=== PATIENT | female | born 1945 | race Caucasian/White ===

== ENCOUNTER → 2019-08-10 09:20 | Outpatient (BNVA) | payer MEDICARE, OTHER, SELFPAY | PROVIDERS: Family Provider Internal Medicine; PCP Internal Medicine; Referring Provider Licensed Practical Nurse; Visit Provider Specialist | DX: G56.03 Carpal tunnel syndrome, bilateral upper limbs (principal) | CPT/HCPCS: 95910 ==

== ENCOUNTER 2019-08-20 14:04 | Outpatient (CLI) | payer MEDICARE, OTHER, SELFPAY ==
[2019-08-14 13:00] LABS: Basophils % 0.4 %; Eosinophils # 0.1 10^3/uL (0.0-0.8); Eosinophils % 2.2 %; Hematocrit 37.4 % (37.0-47.0); Hemoglobin 11.9 g/dL (11.5-15.3); Lymphocytes # 1.1 10^3/uL (0.8-4.8); Lymphocytes % 22.9 %; Mean Corpuscular HGB Conc 31.8 g/dL (30.0-36.0); Mean Corpuscular Hemoglobin 29.5 pg (28.0-34.0); Mean Corpuscular Volume 92.8 fL (81-99); Mean Platelet Volume 10.2 fL (7.4-10.4); Monocytes # 0.5 10^3/uL (0.2-0.9); Monocytes % 10.9 %; Neutrophils # 2.9 10^3/uL (1.8-7.7); Neutrophils % 63.2 %; Nucleated Red Blood Cells % 0 %; Platelet Count 283 10^3/cmm (130-400); Red Blood Count 4.03 10^6/uL (4.1-5.3); Red Cell Distribution Width 13.1 % (12.1-15.1); White Blood Count 4.6 10^3/uL (4.0-10.0)
[2019-08-14 13:15] LABS: Alanine Aminotransferase 11 U/L (0-33); Albumin Level 4.1 g/dL (3.5-5.2); Alkaline Phosphatase 90 IU/L (35-105); Anion Gap 17.8 (5-19); Aspartate Amino Transferase 18 U/L (0-32); Blood Urea Nitrogen 16 mg/dL (8-23); Calcium 9.2 mg/dL (8.5-10.5); Carbon Dioxide 25 mmol/L (22-29); Chloride 97 mmol/L (98-107); Globulin 2.9 g/dL (1.3-4.6); Glucose 98 mg/dL (65-115); Iron 60 ug/dL (37-145); Osmolality Calculated 278 mOsm/kg (285-295); Percent Saturation 16.6 % (20-50); Potassium 3.8 mmol/L (3.5-5.1); Sodium 136 mmol/L (136-145); Total Bilirubin 0.4 mg/dL (0.15-1.2); Total Iron Binding Capacity 360 mcg/dl; Unsaturated Iron Binding 300 ug/dL (112-347)
[2019-08-20] MEDS: LORazepam 2 mg/mL INJ 1 mL 0.5 MG IV (14:44)
[2019-08-20 15:45] LABS: Thyroid Stimulating Hormone 1.41 uIU/mL (0.27-4.20); Vitamin B12 178 pg/mL (232-1245)
--- NOTE | 2019-08-20 18:36 | ONC FU_ITS ---
Dr. Gavin Patient Follow-Up Note Patient: Leticia North Unit #: [id number]: 1945 Dicatated By: Naresh Gavin M.D.Date of Visit:Aug 20, 2019 Onc Med Follow-up/Prog Note Chief Complaint: Anemia. History of Present Illness: This is a 74 year-old woman with iron deficiency anemia. She has had recurrent episodes of iron deficiency anemia, presumed to be due to inadequate oral iron absorption, as multiple GI studies had failed to document any GI blood loss. Her anemia has been managed with parenteral iron replacement, as in the past she had not responded to oral iron supplements. She had typically required parenteral iron about every 6 months. On one occasion her anemia was severe enough that she did require transfusion. I had seen her initially on 06/11/2018. Her laboratory studies one week earlier had shown mild anemia with hemoglobin 11.3 g and hematocrit 35.5%. The red cell indices were borderline low. The white blood cell count was 4900 and the platelet count was 300,000. The serum iron was low at 41 mcg/dL with transferrin saturation 9.6% and the ferritin was low at 6.0 ng/mL, consistent with iron deficiency. At that time she reported that with her most recent prior Injectafer and fusion she had developed significant anxiety. After discussion with her, she opted to proceed with 2 infusions of Injectafer, but with premedication which included dexamethasone, Benadryl, and lorazepam. She tolerated the infusions well. Her medical illnesses, in addition to anemia and anxiety, include hypertension, degenerative arthritis, and glaucoma. She also has a history of thyroid nodule. She is a nonsmoker. INTERIM HISTORY: Her repeat laboratory studies in September 2018 showed normal hemoglobin at 13.0 g. However, her transferrin saturation was low at 8.9% and the ferritin was also low at 17.0 ng/mL, consistent with iron deficiency, and I did opt to give her further parenteral iron replacement with 2 additional infusions of Injectafer. At her follow-up visit in December 2018 her hemoglobin had increased to 13.1 g with transferrin saturation 21%. She was feeling significantly better. She is seen for a follow-up visit. She has been feeling weak and generally bad for the past 2 months. Her activity tolerance has declined, but she is still doing light work. ECOG score is 1. She has good appetite. She has no fever or night sweats. She has having some shortness of breath with exertion. She does not have resting dyspnea, cough, or chest pain. She has no GI or complaints. She has some pain in her fingers. She is having terrible numbness/tingling in her fingers and arms. She has had a nerve conduction study, and those results are pending. Medications: LORazepam 1 Tablet (of 0.5 mg) Oral b.i.d. PRN, Losartan Potassium-HCTZ 0.5 Tablet (of 100-25 mg) Oral daily Allergies: iron Review of Systems: Constitutional - Her energy level is lower than usual and she is feeling weak. She is able to do all her normal housework. Her appetite is good and weight is stable. No fever, chills, hot flashes, or night sweats. ECOG score is 1, ENMT - No sinus congestion/drainage. No mouth sores. No sore throat or difficulty swallowing, Hematologic/Lymphatic - No abnormal bruising or bleeding, Respiratory - She gets shortness of breath with exertion. No cough. No pleuritic pain or hemoptysis, Cardiovascular - No angina pain. No palpitations, Gastrointestinal - No nausea or vomiting. No heartburn or acid reflux. No diarrhea or constipation. No blood in the stool or black stools, Genitourinary (F) - No dysuria or hematuria. No urinary frequency. No urgency or incontinence, Musculoskeletal - No joint or bone pain, Integumentary - No skin complications, Neurologic - No headache or dizziness. She has significant numbness and tingling in her hands and arms, Psychiatric - No anxiety or depression. No insomnia. Vital Signs: Performed on Aug 20, 2019 13:30 Height - 67.00 in Weight - 211.5 lbs (HIGH) BSA - 2.07 sq.m BMI - 33.13 (HIGH) Temperature - 98.4 F Pulse - 70 /min Respiration - 20 /min BP - 144/84 mm(hg) (HIGH) O2 Sat - 99 % Pain - 0 Physical Examination: Constitutional - She looks good generally, Eyes - Sclerae nonicteric. Conjunctivae clear, ENMT - No lesions noted in the oral cavity, Hematologic/Lymphatic - No cervical, clavicular, or axillary adenopathy, Respiratory - Lungs are clear with good air movement bilaterally, Cardiovascular - Heart rhythm is regular. There is no murmur, gallop, or rub noted, Abdomen - Soft. Liver and spleen are not enlarged. There is no abdominal mass or ascites noted and there is no inguinal adenopathy, Extremities - No edema, Neurologic - No focal neurologic deficits noted. Lab/Imaging: Her laboratory studies from 08/14/2019 included CBC showing hemoglobin 11.9 g, white blood cell count 4600, and platelet count 283,000. The red cell indices were normal. Comprehensive metabolic profile showed elevated BUN and creatinine at 16 and 1.4 mg/dL. The bilirubin and liver enzymes were normal. The serum iron studies showed low transferrin saturation at 16.6%. Impression: 1. Patient with recurrent episodes of iron deficiency anemia, presumed to be due to inadequate oral iron absorption. She has been managed with parenteral iron replacement, as her anemia had been refractory to oral iron supplements. 2. She had developed significant anxiety following a recent infusion of Injectafer, possibly due to infusion reaction. Her other medical illnesses include: 3. Hypertension. 4. Degenerative arthritis. 5. Glaucoma. 6. She has a history of thyroid nodule. 7. She has chronic anxiety. Her transferrin saturation and ferritin in May 2018 were again consistent with iron deficiency. She was just mildly anemic, but she was significantly fatigued. She was given parenteral iron replacement with 2 infusions of Injectafer. She tolerated these well, and she had a good objective response. As of September 2018 her transferrin saturation and ferritin levels were again low, consistent with iron deficiency. She was not anemic, but she did report significant fatigue, and she was given further parenteral iron replacement with 2 additional infusions of Injectafer. She had a very good clinical response. She returns now with 2-month history of increased weakness/fatigue. She is having significant numbness/tingling in her arms and hands. She is mildly anemic with transferrin saturation low at 16%, so that she does appear to have some component of iron deficiency. I am also concerned now that she may have coexisting B12 deficiency, as her B12 level in June was in the low normal range at 260 pg/mL. Plan: As she does have evidence of iron deficiency which in the past has not corrected with oral iron replacement, she will be given further parenteral iron replacement with 1 infusion of Injectafer. At the same time I will repeat a B12 level along with methylmalonic acid and homocystine levels and I also will check her TSH. She will have further evaluation as indicated. Signed By: Naresh Gavin M.D. <<Signature on File>>
[2019-08-24 15:35] LABS: Methylmalonic Acid 892 nmol/L (87-318)
== END 2019-08-20 14:05 | disposition home or self-care (01) ==
PROVIDERS: Family Provider Internal Medicine; PCP Internal Medicine; Visit Provider Internal Medicine Medical Oncology
DX: D50.9 Iron deficiency anemia, unspecified (principal); F41.9 Anxiety disorder, unspecified; I10 Essential (primary) hypertension; M19.90 Unspecified osteoarthritis, unspecified site; H40.9 Unspecified glaucoma; R53.83 Other fatigue; R20.0 Anesthesia of skin
CPT/HCPCS: 80053; 82607; 83090; 83540; 83550; 83921; 84443; 85025; 96365; 96367; 96375; 99214; J1100; J1200; J1439; J2060

== ENCOUNTER 2019-09-23 08:35 | Outpatient (CLI) | payer MEDICARE, OTHER, SELFPAY ==
[2019-09-23 17:35] LABS: Basophils % 0.3 %; Eosinophils # 0.1 10^3/uL (0.0-0.8); Eosinophils % 2.6 %; Hematocrit 36.6 % (37.0-47.0); Lymphocytes # 0.7 10^3/uL (0.8-4.8); Lymphocytes % 22.9 %; Mean Corpuscular HGB Conc 30.1 g/dL (30.0-36.0); Mean Corpuscular Hemoglobin 29.6 pg (28.0-34.0); Mean Corpuscular Volume 98.7 fL (81-99); Mean Platelet Volume 10.8 fL (7.4-10.4); Monocytes # 0.3 10^3/uL (0.2-0.9); Neutrophils % 63.9 %; Nucleated Red Blood Cells % 0 %; Platelet Count 263 10^3/cmm (130-400); Red Blood Count 3.71 10^6/uL (4.1-5.3); White Blood Count 3.1 10^3/uL (4.0-10.0)
[2019-09-23 20:12] LABS: Ferritin 117 ng/mL (15-150); Iron 66 ug/dL (37-145); Percent Saturation 22.9 % (20-50); Total Iron Binding Capacity 288 mcg/dl; Unsaturated Iron Binding 222 ug/dL (112-347)
== END 2019-09-23 08:36 | disposition home or self-care (01) ==
LOC: ONCMED 16:46
PROVIDERS: Family Provider Internal Medicine; PCP Internal Medicine; Visit Provider Internal Medicine Medical Oncology
DX: D50.8 Other iron deficiency anemias (principal)
CPT/HCPCS: 82728; 83540; 83550; 85025

== ENCOUNTER 2019-10-08 10:44 | Day surgery (SDC) | payer MEDICARE, OTHER, SELFPAY ==
[2019-10-07 12:32] VITALS: BMI 34.1
[2019-10-08 11:22] VITALS: BP 160/89; PULSE 65; RESP 15; TEMP 36.2; O2SAT 99
[2019-10-08] MEDS: sodium chloride 0.9% 1,000 ML 30 ML IV (11:36)
--- NOTE | 2019-10-08 12:03 | P.ANESASSM_ITS ---
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 Proposed Procedure: Operation Date: 10/08/19 13:05 Proposed Procedures p Open release of the median nerve at the left wrist 64546 G56.03(Left) - Enmanuel Jauregui MD Familial anesthetic complications: None Was Beta Americo taken within 24 hours: N/A Last intake: Intake Last Liquid Date 10/08/19 Last Liquid Time 08:30 Last Solid Date 10/07/19 Last Solid Time 22:00 Social: Social History: No alcohol and No tobacco Exam: Pre-Anes Outpt Exam: alert, oriented x 3, clear to auscultation b ilaterally and regular rate & rhythm Airway: Cervical ROM: WNL MP: 2 Dentition: False Pulmonary: Pulmonary: None reported CV/HEM: CV/HEM: HTN : : None reported Hepatic: Hepatic: None reported GI: GI: None reported Metabolic: Metabolic: None reported Musc/skel: Musc/skel: None reported Neuropsych: Neuropsych: None reported Anesthetic Plan: ASA status: 2 Anesthesia: General Risk of > 500 ml blood loss (7ml/kg in children): No Meds/Allergies Current Medications: Current Medications Generic Name Dose Route Start Last Admin Trade Name Freq PRN Reason Stop Dose Admin Sodium Chloride 1,000 mls @ 30 ml s/hr 10/08/19 11:15 10/08/19 11:36 Sodium Chloride 0.9% IV 10/09/19 11:14 30 mls/hr .Q24H SILVESTRE Administration PFSH Anesthesia PFSH: Medical History Bilateral carpal tunnel syndrome Surgical History History of elbow surgery horse fell on pt, caused shattering of elbow socket and it was wired. 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
--- NOTE | 2019-10-08 15:58 | W.PM.OPSUD ---
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
--- NOTE | 2019-10-08 16:18 | PM.OP2 ---
Brief Operative Note: Date of procedure: 10/08/19 Pre-op diagnosis: Median nerve entrapment at left wrist. Post-op diagnosis: same Procedure Done: Open Release of median nerve at left wrist. Surgeon: Enmanuel Jauregui Estimated blood loss (mL): 1 Complications: None. Post-op Plan: Home per Ambulatory Surgery protocol. 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
[2019-10-08] MEDS: neomycin-poly-bacitracin oint 28 gm 1 APPLIC TOPICAL (16:40)
[2019-10-08 17:15] VITALS: BP 102/70; PULSE 90; RESP 16; TEMP 36.2; O2SAT 99
[2019-10-08 17:37] VITALS: BP 116/76; PULSE 62; RESP 16; TEMP 36.2; O2SAT 100
--- NOTE | 2019-10-08 18:00 | PM.OP ---
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 Pathology: none sent Surgeon: Enmanuel Jauregui Anesthesia: MAC Estimated blood loss (mL): 1 IV fluids (mL): 300 Complications: None Condition: stable Disposition: same day Brief History: The patient is a 74-year-old female with symptomatic, electrodiagnostically confirmed moderately severe bilateral carpal tunnel syndrome. Symptoms were more prominent on the left than the right. Conservative management failed to provide adequate lasting symptom relief. After review of the diagnostic and treatment options with the risks/potential benefits/rationale for each, the patient requested to proceed with open release of the median nerve at the left wrist. Procedure: After routine preoperative evaluation and informed consent were obtained, the patient was taken to the Operating Room and positioned supine on the operating table. Anesthesia personnel monitored the patient, and maintained intravenous sedation. The left upper extremity was extended on an arm board. The proposed skin incision was marked with a sterile skin marker, beginning near the wrist crease and extending distally along a palmar crease to the base of the thumb. The left upper extremity was scrubbed with Betadine and prepped with DuraPrep from the fingertips to the axilla. A sterile stockinette was placed over the left upper extremity. The patient was draped with sterile towels and drapes. An opening was fashioned in the sterile stockinette over the palmar aspect of the left hand. Ioban surgical barrier was applied. The proposed incision site was infiltrated with 1% Xylocaine with Epinephrine. A skin incision was made with a sharp knife and carried down into the subcutaneous tissues. The thickened transverse carpal ligament was identified and divided over the course of the median nerve in the palm. The nerve was directly visualized as the ligament was divided. Decompression was extended distally until the palmar fat pad was encountered. Proximally, the decompression was extended above the wrist crease utilizing fine Metzenbaum scissors. Decompression was verified to be adequate for a distance of greater than 2 centimeters proximal to the wrist crease. Limited epineurolysis was performed to address scattered adhesions. At the completion of the decompression, there was no evidence of residual impingement or tethering of the median nerve at the surgical site. The wound was then copiously irrigated with antibiotic irrigation. Hemostasis was ensured with the bipolar electrocautery. Wound closure was performed as a single layer utilizing 4-0 Nylon in a simple interrupted fashion. Antibiotic ointment was placed along the incision line. A bulky hand dressing was fashioned utilizing Kerlix fluffs, a Kerlix wrap, and an ISAIAS/elastic bandage. The patient was transferred onto the transport cart and returned to the Ambulatory Surgery Area for discharge home, as per the Ambulatory Surgery protocol. The patient tolerated the procedure well. All sponge, needle and instrument counts were correct at the completion of the procedure.
== END 2019-10-08 17:59 | disposition home or self-care (01) ==
PROVIDERS: PCP Internal Medicine; Visit Provider Specialist
PROC: (CPT 64721; principal; 2019-10-08 12:55)
DX: G56.02 Carpal tunnel syndrome, left upper limb (principal); I10 Essential (primary) hypertension
CPT/HCPCS: 64721; 12345; J0690; J2001; J2704; J3010; J3490; J7030

== ENCOUNTER 2019-10-26 12:25 | Outpatient (CLI) | payer MEDICARE, OTHER, SELFPAY ==
[2019-10-26 13:09] LABS: Basophils % 0.5 %; Eosinophils # 0.2 10^3/uL (0.0-0.8); Eosinophils % 4.3 %; Hematocrit 33.5 % (37.0-47.0); Hemoglobin 10.5 g/dL (11.5-15.3); Lymphocytes # 1.2 10^3/uL (0.8-4.8); Lymphocytes % 29.4 %; Mean Corpuscular HGB Conc 31.3 g/dL (30.0-36.0); Mean Corpuscular Hemoglobin 30.3 pg (28.0-34.0); Mean Corpuscular Volume 96.5 fL (81-99); Mean Platelet Volume 9.9 fL (7.4-10.4); Monocytes # 0.4 10^3/uL (0.2-0.9); Monocytes % 10.9 %; Neutrophils # 2.2 10^3/uL (1.8-7.7); Neutrophils % 54.6 %; Nucleated Red Blood Cells % 0 %; Platelet Count 240 10^3/cmm (130-400); Red Blood Count 3.47 10^6/uL (4.1-5.3); Red Cell Distribution Width 13.2 % (12.1-15.1); White Blood Count 3.9 10^3/uL (4.0-10.0)
[2019-10-26 13:24] LABS: LAB Peripheral Smear Y
[2019-10-26 13:47] LABS: Homocysteine 13.48
[2019-10-26 13:58] LABS: Alanine Aminotransferase 10 U/L (0-33); Albumin Level 3.8 g/dL (3.5-5.2); Alkaline Phosphatase 82 IU/L (35-105); Anion Gap 15.8 (5-19); Aspartate Amino Transferase 17 U/L (0-32); Blood Urea Nitrogen 12 mg/dL (8-23); Calcium 9.3 mg/dL (8.5-10.5); Carbon Dioxide 25 mmol/L (22-29); Chloride 102 mmol/L (98-107); Ferritin 27 ng/mL (15-150); Globulin 3.1 g/dL (1.3-4.6); Glucose 93 mg/dL (65-115); Iron 36 ug/dL (37-145); Lactate Dehydrogenase 181 U/L (135-214); Osmolality Calculated 284 mOsm/kg (285-295); Percent Saturation 11.4 % (20-50); Potassium 3.8 mmol/L (3.5-5.1); Sodium 139 mmol/L (136-145); Total Bilirubin 0.2 mg/dL (0.15-1.2); Total Iron Binding Capacity 314 mcg/dl; Total Protein 6.9 g/dL (6.6-8.7); Unsaturated Iron Binding 278 ug/dL (112-347); Vitamin B12 648 pg/mL (232-1245)
[2019-10-26 14:06] LABS: Erythrocyte Sedimentation Rate 24 mm/hr (0-15)
[2019-10-30 15:21] LABS: Methylmalonic Acid 212 nmol/L (87-318)
== END 2019-10-26 12:26 | disposition home or self-care (01) ==
LOC: ONCMED 12:28
PROVIDERS: PCP Internal Medicine; Visit Provider Internal Medicine Medical Oncology
DX: D50.9 Iron deficiency anemia, unspecified (principal); D51.9 Vitamin B12 deficiency anemia, unspecified; I10 Essential (primary) hypertension
CPT/HCPCS: 80053; 82607; 82728; 83010; 83090; 83540; 83550; 83615; 83921; 85025; 85045; 85651

== ENCOUNTER 2019-10-28 12:40 | Outpatient (CLI) | payer MEDICARE, OTHER, SELFPAY ==
--- NOTE | 2019-10-28 19:24 | ONC FU_ITS ---
Dr. Gavin Patient Follow-Up Note Patient: Leticia North Unit #: [id number]: 1945 Dicatated By: Naresh Gavin M.D.Date of Visit:Oct 28, 2019 Onc Med Follow-up/Prog Note Chief Complaint: Anemia. History of Present Illness: This is a 74 year-old woman with iron deficiency anemia. She has had recurrent episodes of iron deficiency anemia, presumed to be due to inadequate oral iron absorption, as multiple GI studies had failed to document any GI blood loss. Her anemia has been managed with parenteral iron replacement, as in the past she had not responded to oral iron supplements. She had typically required parenteral iron about every 6 months. On one occasion her anemia was severe enough that she did require transfusion. I had seen her initially on 06/11/2018. Her laboratory studies one week earlier had shown mild anemia with hemoglobin 11.3 g and hematocrit 35.5%. The red cell indices were borderline low. The white blood cell count was 4900 and the platelet count was 300,000. The serum iron was low at 41 mcg/dL with transferrin saturation 9.6% and the ferritin was low at 6.0 ng/mL, consistent with iron deficiency. At that time she reported that with her most recent prior Injectafer and fusion she had developed significant anxiety. After discussion with her, she opted to proceed with 2 infusions of Injectafer, but with premedication which included dexamethasone, Benadryl, and lorazepam. She tolerated the infusions well. Her medical illnesses, in addition to anemia and anxiety, include hypertension, degenerative arthritis, and glaucoma. She also has a history of thyroid nodule. She is a nonsmoker. INTERIM HISTORY: Her repeat laboratory studies in September 2018 showed normal hemoglobin at 13.0 g. However, her transferrin saturation was low at 8.9% and the ferritin was also low at 17.0 ng/mL, consistent with iron deficiency, and I did opt to give her further parenteral iron replacement with 2 additional infusions of Injectafer. At her follow-up visit in December 2018 her hemoglobin had increased to 13.1 g with transferrin saturation 21%. She was feeling significantly better. However, at her follow-up visit on 08/20/2019 she was significantly more fatigued. Her hemoglobin was back down to 11.9 g with transferrin saturation low at 16%. In addition, her methylmalonic acid level was elevated at 892 mmol/L. She was given a single infusion of Injectafer. She also started B12 replacement. She is seen for a follow-up visit. She says she felt better after starting the B12 injections. She said her energy had been horrible, but lately it has been better. She is able to do light work. She had carpal tunnel surgery on her left wrist 3 weeks ago, and she seems to be recovering pretty well following that procedure. She has good appetite. She has no fever or night sweats. She has no shortness of breath, cough, or chest pain. She has no GI complaints. She says her bladder function lately has been a little better. She has arthritis, but she does not have much pain with it. Her carpal tunnel symptoms did improve with the surgery. She is being scheduled to have the same surgery on on the right side. Medications: LORazepam 1 Tablet (of 0.5 mg) Oral b.i.d. PRN, Losartan Potassium-HCTZ 0.5 Tablet (of 100-25 mg) Oral daily Allergies: iron Review of Systems: Constitutional - She generally feels okay. Her energy level was horrible, but it is better now. She has mostly normal activity. Her appetite is good and her weight is up about 8 pounds from last visit. No fever, night sweats, or hot flashes. ECOG score is 1, ENMT - No sinus congestion/drainage. No mouth sores. No sore throat or difficulty swallowing, Hematologic/Lymphatic - No abnormal bruising or bleeding, Respiratory - No shortness of breath. No cough. No pleuritic pain or hemoptysis, Cardiovascular - No angina pain. No palpitations, Gastrointestinal - No nausea or vomiting. No heartburn or acid reflux. No diarrhea or constipation. No blood in the stool or black stools, Genitourinary (F) - No dysuria or hematuria. No urinary frequency. No urgency or incontinence. She feels her bladder function is overall improved, Musculoskeletal - She has chronic arthritis pain, Integumentary - She has a healing incision to her left hand from a recent sugery. No signs of infection, Neurologic - No headache or dizziness. She has significant numbness and tingling in her hands and arms, Psychiatric - No anxiety or depression. No insomnia. Vital Signs: Performed on Oct 28, 2019 13:04 Height - 67.00 in Weight - 219.8 lbs (HIGH) BSA - 2.10 sq.m BMI - 34.43 (HIGH) Temperature - 97.9 F (LOW) Pulse - 62 /min Respiration - 24 /min BP - 140/97 mm(hg) O2 Sat - 99 % Pain - 0 Physical Examination: Constitutional - She looks good generally, Eyes - Sclerae nonicteric. Conjunctivae clear, ENMT - No lesions noted in the oral cavity, Hematologic/Lymphatic - No cervical, clavicular, or axillary adenopathy, Respiratory - Lungs are clear with good air movement bilaterally, Cardiovascular - Heart rhythm is regular. There is no murmur, gallop, or rub noted, Abdomen - Soft. Liver and spleen are not enlarged. There is no abdominal mass or ascites noted and there is no inguinal adenopathy, Extremities - No edema, Neurologic - No focal neurologic deficits noted. Lab/Imaging: CBC shows hemoglobin 10.5 g, white blood cell count 3900, and platelet count 240,000. Comprehensive metabolic profile is unremarkable except for borderline renal function with BUN 12 and creatinine 1.3 mg/dL. The serum iron studies show transferrin saturation low at 11.4%. Ferritin is also relatively low at 27 ng/mL. Impression: 1. Patient with recurrent episodes of iron deficiency anemia, presumed to be due to inadequate oral iron absorption. She has been managed with parenteral iron replacement, as her anemia had been refractory to oral iron supplements. 2. She had developed significant anxiety following a recent infusion of Injectafer, possibly due to infusion reaction. Her other medical illnesses include: 3. Hypertension. 4. Degenerative arthritis. 5. Glaucoma. 6. She has a history of thyroid nodule. 7. She has chronic anxiety. Her transferrin saturation and ferritin in May 2018 were again consistent with iron deficiency. She was just mildly anemic, but she was significantly fatigued. She was given parenteral iron replacement with 2 infusions of Injectafer. She tolerated these well, and she had a good objective response. As of September 2018 her transferrin saturation and ferritin levels were again low, consistent with iron deficiency. She was not anemic, but she did report significant fatigue, and she was given further parenteral iron replacement with 2 additional infusions of Injectafer. She had a very good clinical response. At her follow-up visit on 08/20/2019 she was mildly anemic again with her transferrin saturation low at 16%, consistent with iron deficiency. She also was found to have an elevated methylmalonic acid level, consistent with B12 deficiency. She was given a single infusion of Injectafer, and she also started B12 replacement. She did show symptomatic improvement. However, she is now mildly anemic again with transferrin saturation and ferritin level consistent with iron deficiency. Plan: She will be given further parenteral iron replacement with 2 infusions of Injectafer. She will continue her B12 replacement. I also now will have her recheck stool FIT. Her lab studies will be rechecked 1 month after the second Injectafer infusion. Signed By: Naresh Gavin M.D. <<Signature on File>>
== END 2019-10-28 12:41 | disposition home or self-care (01) ==
LOC: ONCMED 12:44
PROVIDERS: PCP Internal Medicine; Visit Provider Internal Medicine Medical Oncology
DX: D50.9 Iron deficiency anemia, unspecified (principal); I10 Essential (primary) hypertension; M19.90 Unspecified osteoarthritis, unspecified site; H40.9 Unspecified glaucoma; E04.1 Nontoxic single thyroid nodule; F41.9 Anxiety disorder, unspecified
CPT/HCPCS: 99214

== ENCOUNTER 2019-10-29 14:30 | Outpatient (CLI) | payer MEDICARE, OTHER, SELFPAY ==
[2019-10-29] MEDS: LORazepam 2 mg/mL INJ 1 mL 0.5 MG IVP (14:57)
[2019-10-29] MEDS: ferric carboxy (IVPB) 750 MG in sodium chloride 0.9% (100 ml) 100 ML 345 MG IV (15:38)
== END 2019-10-29 14:31 | disposition home or self-care (01) ==
LOC: ONCMED 14:35
PROVIDERS: PCP Internal Medicine; Visit Provider Internal Medicine Medical Oncology
DX: D50.8 Other iron deficiency anemias (principal)
CPT/HCPCS: 96365; 96367; 96375; J1100; J1200; J1439; J2060

== ENCOUNTER 2019-11-05 07:21 | Outpatient (RCR) | payer MEDICARE, OTHER, SELFPAY ==
[2019-11-05] MEDS: ferric carboxy (IVPB) 750 MG in sodium chloride 0.9% (100 ml) 100 ML 345 MG IV (14:30)
[2019-11-05] MEDS: LORazepam 2 mg/mL INJ 1 mL 0.5 MG IVP (15:05)
== END 2019-11-17 23:59 | disposition home or self-care (01) ==
LOC: ONCMED 07:21
PROVIDERS: PCP Internal Medicine; Visit Provider Internal Medicine Medical Oncology
DX: D50.9 Iron deficiency anemia, unspecified (principal); F41.9 Anxiety disorder, unspecified; M19.90 Unspecified osteoarthritis, unspecified site; I10 Essential (primary) hypertension; E03.9 Hypothyroidism, unspecified; H40.9 Unspecified glaucoma
CPT/HCPCS: 96365; 96367; 96375; J1100; J1200; J2060

== ENCOUNTER 2019-11-19 09:08 | Day surgery (SDC) | payer MEDICARE, OTHER, SELFPAY ==
[2019-11-18 12:17] VITALS: BMI 33.2
[2019-11-19 09:27] VITALS: BP 144/84; PULSE 59; RESP 18; TEMP 36.6; O2SAT 99
[2019-11-19] MEDS: sodium chloride 0.9% 1,000 ML 30 ML IV (09:45)
--- NOTE | 2019-11-19 10:14 | ANES.PREANE2 ---
Pre-Anesthetic Assessment Pre-Anesthetic Assessment: Height/Weight: Height 1.7 m Weight 96.162 kg Temp Pulse Resp BP Pulse Ox 97.8 F 59 L 18 144/84 99 11/19/19 09:27 11/19/19 09:27 11/19/19 09:27 11/19/19 09:27 11/19/19 09:27 Preop Diagnosis: Carpal tunnel syndrome Proposed Procedure: Operation Date: 11/19/19 10:35 Proposed Procedures p Median Nerve Release/Open Wrist 55421 G96.03(Right) - Enmanuel Jauregui MD Familial anesthetic complications: None Was Beta Americo taken within 24 hours: N/A Last intake: Intake Last Liquid Date 11/19/19 Last Liquid Time 00:00 Last Solid Date 11/19/19 Last Solid Time 00:00 Social: Social History: No alcohol and No tobacco Exam: Pre-Anes Outpt Exam: alert, oriented x 3, clear to auscultation bilaterally and regular rate & rhythm Airway: Cervical ROM: WNL MP: 2 Dentition: Other (plates) Pulmonary: Pulmonary: None reported CV/HEM: CV/HEM: HTN : : None reported Hepatic: Hepatic: None reported GI: GI: None reported Metabolic: Metabolic: None reported Musc/skel: Musc/skel: None reported Neuropsych: Neuropsych: None reported Anesthetic Plan: ASA status: 2 Anesthesia: General Risk of > 500 ml blood loss (7ml/kg in children): No Meds/Allergies Current Medications: Current Medications Generic Name Dose Route Start Last Admin Trade Name Freq PRN Reason Stop Dose Admin Sodium Chloride 1,000 mls @ 30 ml s/hr 11/19/19 09:00 11/19/19 09:45 Sodium Chloride 0.9% IV 11/20/19 08:59 30 mls/hr .Q24H SILVESTRE Administration PFSH Anesthesia PFSH: Medical History Bilateral carpal tunnel syndrome Surgical History History of elbow surgery horse fell on pt, caused shattering of elbow socket and it was wired. 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
--- NOTE | 2019-11-19 11:47 | W.PM.OPSUD ---
Surgery/Procedure H&P Update DATE OF PROCEDURE: November 19, 2019 DATE H&P PERFORMED: 11/09/19 H&P UPDATE INFORMATION: I have reviewed H&P completed within last 30 days and H&P to be scanned into chart PREOP DIAGNOSIS: Carpal tunnel syndrome PRIMARY INDICATION FOR PROCEDURE: same PLANNED PROCEDURE: Operation Date: 11/19/19 10:35 Proposed Procedures Median Nerve Release at right Wrist
--- NOTE | 2019-11-19 12:20 | P.OP_ITS ---
Brief Operative Note: Date of procedure: 11/19/19 Pre-op diagnosis: Median Nerve Entrapment at right wrist Post-op diagnosis: same Procedure Done: Open release of median nerve at right wrist. Surgeon: Enmanuel Jauregui Estimated blood loss (mL): 3 Complications: None. Post-op Plan: Home per A mbulatory Surgery protocol. Condition: stable Disposition: same day Coding Level of Care Code Acute Mid Level Business Analyst for Alejandro Cisneros
[2019-11-19] MEDS: neomycin-poly-bacitracin oint 28 gm 1 APPLIC TOPICAL (12:51)
[2019-11-19 13:06] VITALS: BP 113/70; PULSE 70; RESP 18; TEMP 36.4; O2SAT 98
[2019-11-19 13:39] VITALS: BP 138/72; PULSE 62; RESP 18; O2SAT 97
--- NOTE | 2019-11-19 14:55 | P.OP_ITS ---
Operative Report Date of procedure: November 19, 2019 Pre-op Diagnosis: Carpal tunnel syndrome Procedure Done: Open release of the median nerve at the right wrist. Pathology: none sent Surgeon: Enmanuel Jauregiu Anesthesia: MAC Estimated blood loss (mL): 3 IV fluids (mL): 800 Complications: None. Condition: stable Disposition: same day Brief History: The patient is a 74-year-old female with symptomatic, electrodiagnostically confirmed bilateral median nerve entrapment at the wrist. Symptoms progressed in spite of conservative management. Electrodiagnostic studies identified moderate-severe carpal tunnel syndrome. She underwent open release of the median nerve at the left wrist on 10/08/2019, with marked improvement in preoperative symptoms noted following surgery. She returns at this time for o pen release of the median nerve at the right wrist. Procedure: After routine preoperative evaluation and informed consent were obtained, the patient was taken to the Operating Room and positioned supine on the operating table. She was maintained under intravenous sedation by Anesthesia personnel. The right upper extremity was extended on an arm board. A proposed incision was marked with a sterile skin marker. The extremity was scrubbed with Betadine and prepped with DuraPrep from the fingertips to the axilla. Sterile towels, sterile drapes, and a sterile stockinette were utilized for draping of the operative field. An opening was fashioned in the sterile stockinette over the palmar aspect of the right hand. An [place] surgical barrier was placed. The proposed palmar incision site was infiltrated with 1% Xylocaine with Epinephrine. A skin incision was made and carried down into the subcutaneous tissues. Self-retaining retractors were placed. The thickened transverse carpal ligament was divided over the course of the median nerve in the palm. The ligament was divided distally until the palmar fat pad was encountered. Proximally, the ligament was divided with fine Metzenbaum scissors to a point approximately 2 centimeters above the wrist crease. There were mild diffuse epineural adhesions, which were treated with limited adhesiolysis. There was no evidence of residual median nerve impingement or entrapment in the visualized segment of the nerve at the completion of the procedure. The wound was then copiously irrigated with antibi otic irrigation. Hemostasis was ensured with the bipolar electrocautery. Wound closure was performed as a single layer utilizing 4-0 Nylon in a simple interrupted fashion. Antibiotic ointment was placed along the incision line. A bulky hand dressing was fashioned utilizing a combination of Kerlix fluffs, a Kerlix wrap, and an ISAIAS/elastic bandage. The patient was transported to the Ambulatory Surgery Area for discharge home, as per the Ambulatory Surgery protocol. The patient tolerated the procedure well. All sponge, needle, and instrument counts were correct at the completion of the procedure.
== END 2019-11-19 13:53 | disposition home or self-care (01) ==
PROVIDERS: PCP Internal Medicine; Visit Provider Specialist
PROC: (CPT 64721; principal; 2019-11-19 10:35)
DX: G56.01 Carpal tunnel syndrome, right upper limb (principal); I10 Essential (primary) hypertension
CPT/HCPCS: 64721; 12345; J0690; J2001; J2704; J3010; J3490; J7030

== ENCOUNTER 2019-12-07 07:13 | Outpatient (RCR) | payer MEDICARE, OTHER, SELFPAY ==
[2019-12-07 12:04] LABS: Basophils % 0.5 %; Eosinophils # 0.1 10^3/uL (0.0-0.8); Eosinophils % 2.7 %; Hemoglobin 10.9 g/dL (11.5-15.3); Lymphocytes # 1.2 10^3/uL (0.8-4.8); Mean Corpuscular HGB Conc 31.1 g/dL (30.0-36.0); Mean Corpuscular Hemoglobin 30.8 pg (28.0-34.0); Mean Corpuscular Volume 98.9 fL (81-99); Mean Platelet Volume 9.9 fL (7.4-10.4); Monocytes # 0.4 10^3/uL (0.2-0.9); Monocytes % 9.6 %; Neutrophils # 2.62 10^3/uL (1.8-7.7); Nucleated Red Blood Cells % 0 %; Platelet Count 225 10^3/cmm (130-400); Red Blood Count 3.54 10^6/uL (4.1-5.3); Red Cell Distribution Width 13.8 % (12.1-15.1); White Blood Count 4.4 10^3/uL (4.0-10.0)
[2019-12-07 12:18] LABS: Ferritin 250 ng/mL (15-150); Iron 55 ug/dL (37-145); Percent Saturation 22.1 % (20-50); Total Iron Binding Capacity 248 mcg/dl; Unsaturated Iron Binding 193 ug/dL (112-347)
--- NOTE | 2019-12-07 15:24 | ONC FU_ITS ---
[facility] Patient Note Patient: Leticia North Unit #: [id number]: 1945 Dictated By: Timothy IyerDate of Visit: Dec 07, 2019 Onc MED Follow-Up/Prog Note Chief Complaint: Anemia. History of Present Illness: Ms North is a 74 year-old woman with iron deficiency anemia. She has had recurrent episodes of iron deficiency anemia, presumed to be due to inadequate oral iron absorption, as multiple GI studies had failed to document any GI blood loss. Her anemia has been managed with parenteral iron replacement, as in the past she had not responded to oral iron supplements. She had typically required parenteral iron about every 6 months. On one occasion her anemia was severe enough that she did require transfusion. Dr Gavin had seen her initially on 06/11/2018. Her laboratory studies one week earlier had shown mild anemia with hemoglobin 11.3 g and hematocrit 35.5%. The red cell indices were borderline low. The white blood cell count was 4900 and the platelet count was 300,000. The serum iron was low at 41 mcg/dL with transferrin saturation 9.6% and the ferritin was low at 6.0 ng/mL, consistent with iron deficiency. At that time she reported that with her most recent prior Injectafer and fusion she had developed significant anxiety. After discussion with her, she opted to proceed with 2 infusions of Injectafer, but with premedication which included dexamethasone, Benadryl, and lorazepam. She tolerated the infusions well. Her medical illnesses, in addition to anemia and anxiety, include hypertension, degenerative arthritis, and glaucoma. She also has a history of thyroid nodule. She is a nonsmoker. INTERIM HISTORY: Her repeat laboratory studies in September 2018 showed normal hemoglobin at 13.0 g. However, her transferrin saturation was low at 8.9% and the ferritin was also low at 17.0 ng/mL, consistent with iron deficiency, and I did opt to give her further parenteral iron replacement with 2 additional infusions of Injectafer. At her follow-up visit in December 2018 her hemoglobin had increased to 13.1 g with transferrin saturation 21%. She was feeling significantly better. However, at her follow-up visit on 08/20/2019 she was significantly more fatigued. Her hemoglobin was back down to 11.9 g with transferrin saturation low at 16%. In addition, her methylmalonic acid level was elevated at 892 mmol/L. She was given a single infusion of Injectafer. She also started B12 replacement. In october 2019 Mrs North was found to be iron deficient once again with a sat of 11%, Ferritin of 27 and iron level of 36. She receiveed two doses of Injectafer 1 week apart with the last dose given on 11/05/2019. Today for follow-up 1 month post Injectafer. She states overall she feels really good. She states she feels much better overall. She is no longer as tired and weak as she was. She states when she gets severely anemic and iron deficient she craves raw oats but has not done that recently. She denies any shortness of breath orthopnea. She denies any fever or chills. She has had no mouth sores or sore throat. She has had no difficulty swallowing. She states that her bowels and bladder are normal for her. She denies any rash or shortness of breath after the Injectafer. She feels she tolerated it well overall. She is somewhat concerned as the nurse administering the Injectafer seem to give the Injectafer a little too fast . Mrs. North has had multiple infusions with the Injectafer and states that it is generally given slower than what she was given last couple of time she was here. She is requesting a different nurse administer her next Injectafer if needed. I did tell her we could accommodate that and discussed this with Hannah in chemotherapy. Mrs. North's ECOG is 0. He did have her right carpal tunnel fixed on November 19, [address] Jauergui. She is recovering well from that. She states she no longer has numbness and tingling. She states overall she feels so much better. Past Medical History: Anxiety Degenerative arthritis Glaucoma History of thyroid nodule Hypertension Iron deficiency anemia Past Surgical History: Right carpal tunnel repair Dr Jauregui in 2019 CARPAL TUNNEL REPAIR in 2019 Bilateral cataract excisions and placement of glaucoma stents in 2018 Colonoscopy in 2017 ORIF for left elbow fracture in 1967 Partial thyroidectomy for thyroid nodule in 1959 Allergies: iron Medications: LORazepam 1 Tablet (of 0.5 mg) Oral b.i.d. PRN Losartan Potassium-HCTZ 0.5 Tablet (of 100-25 mg) Oral daily Family History: Ms. North's mother at age 66: colon cancer. Ms. North's father at age 77: sinus cancer. Ms. North has 2 brothers: 2 . She has 1 sister who is . Father of sinus cancer at age 77. Mother had colon cancer and at age 66. She had a total of 9 siblings. One brother in a car wreck and 2 of heart disease. A sister also of heart disease. Social History: Ms. North is and she is retired. Ms. North has never smoked. She has no history of drinking. Ms. North reports the following support systems: lives with spouse, significant other, family, or friends, supportive family/friends willing to assist with needs, and adequate transportation available for expected visits. Her diet consists of regular meals. She indicates her activity level as: daily activities. She is a nonsmoker. She does not drink alcohol. 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 Review Of Symptoms: Constitutional Denies fevers, chills, night sweats, excessive fatigue or weight loss. Feels better after Injectafer. Allergic/Immunologic No reactions. Eyes Denies significant visual changes. No diplopia. No amaurosis. ENMT Denies changes in hearing, sore throat, mouth sores, difficulty or changes in swallowing ability, and/or sinus drainage. Endocrine No diabetes, thyroid disease or hormone replacement. Denies hot flashes or night sweats. Hematologic/Lymphatic Denies easy bruising or bleeding. The patient denies any tender or palpable lymph nodes. Respiratory Denies dyspnea on exertion, chest pain, cough or hemoptysis. Denies orthopnea. Cardiovascular Denies anginal chest pain, palpitations or orthopnea. Gastrointestinal Denies nausea, vomiting, diarrhea, GI bleeding, or constipation. Denies change in bowel habits and/or stool color, no heartburn or early satiety. Genitourinary (F) No hematuria, hesitancy, incontinence, vaginal bleeding, discharge or other problems with urination. Musculoskeletal Denies joint pain, swelling or redness. No decreased range of motion. Integumentary Denies chronic rashes, inflammation, ulcerations or skin changes. Neurologic Denies headache, blurred vision, and no areas of focal weakness or numbness. Normal gait. No sensory problems. Psychiatric Denies insomnia, depression, nabeel or mood swings. Vital Signs: Performed on Dec 07, 2019 13:21 Height - 67.00 in Weight - 220.0 lbs (HIGH) BSA - 2.11 sq.m BMI - 34.46 (HIGH) Temperature - 98.0 F (LOW) Pulse - 64 /min Respiration - 17 /min BP - 146/62 mm(hg) (HIGH) O2 Sat - 97 % Pain - 0,0 - Fully active, able to carry on all predisease activities without restrictions. (ECOG) Physical Examination: Constitutional Alert, oriented, no acute distress. Skin pink, warm and dry. Head Normocephalic; atraumatic. Eyes Conjunctivae and sclerae are clear and without icterus. Pupils are reactive and equal. Neck Supple without masses or thyromegaly. No jugular venous distension. Hematologic/Lymphatic No petechiae or purpura. No tender or palpable lymph nodes in the cervical or supraclavicular areas. Respiratory Lungs are clear to auscultation without rhonchi or wheezing. Cardiovascular Regular rate and rhythm of heart without murmurs,clicks, gallops or rubs. Back/Spine Non-tender to palpation. Extremities No visible deformities, no cyanosis, clubbing or edema. Musculoskeletal No tenderness or swelling, normal range of motion without obvious weakness. Integumentary No rashes or lesions. Neurologic No sensory or motor deficits, normal cerebellar function, normal gait. Psychiatric Alert and oriented times three. Coherent speech. Verbalizes understanding of our discussions today. Laboratory:Test performed on Dec 07, 2019 11:38 Ferritin 250 ng/mL Iron 55 mcg/dL Iron Binding Capacity (TIBC) 248 mcg/dl % Iron Saturation 22.1 % UIBC 193 mcg/dL WBC 4.4 10 3/uL RBC 3.54 10 6/uL HGB 10.9 g/dL HCT 35.0 % MCV 98.9 fL MCH 30.8 pg MCHC 31.1 g/dL RDW 13.8 % Platelet Count 225 10 3/cmm MPV 9.9 fL Neutrophils 2.62 10 3/uL Lymphocytes 1.2 10 3/uL Monocytes 0.4 10 3/uL Eosinophils 0.1 10 3/uL Basophils 0.0 10 3/uL Neutrophil % 60.0 % Lymphocyte % 27.0 % Monocyte % 9.6 % Eosinophil % 2.7 % Basophils % 0.5 % NRBC % 0 % Test performed on Oct 26, 2019 12:40 Homocysteine 13.48 umol/L LDH (Total) 181 U/L Methylmalonic Acid 212 nmol/L Sodium 139 mmol/L Vitamin B12 648 pg/mL Potassium 3.8 mmol/L Chloride 102 mmol/L CO2 25 mmol/L Anion Gap 15.8 BUN 12 mg/dL Creatinine 1.3 mg/dL Cr Clearance (Est) 59.76 mL/min Glucose 93 mg/dL Calcium 9.3 mg/dL Protein, Total 6.9 g/dL Albumin 3.8 g/dL Globulin 3.1 g/dL Bilirubin, Total 0.2 mg/dL ALT (SGPT) 10 U/L AST (SGOT) 17 U/L Alkaline Phosphatase 82 IU/L ESR (Sed Rate) 24 mm/hr NRBC 0.0 /100WBC Test performed on Aug 20, 2019 14:40 TSH 1.41 uIU/mL Impression: 1. Patient with recurrent episodes of iron deficiency anemia, presumed to be due to inadequate oral iron absorption. She has been managed with parenteral iron replacement, as her anemia had been refractory to oral iron supplements. 2. She had developed significant anxiety following a recent infusion of Injectafer, possibly due to infusion reaction. Her other medical illnesses include: 3. Hypertension. 4. Degenerative arthritis. 5. Glaucoma. 6. She has a history of thyroid nodule. 7. She has chronic anxiety. Her transferrin saturation and ferritin in May 2018 were again consistent with iron deficiency. She was just mildly anemic, but she was significantly fatigued. She was given parenteral iron replacement with 2 infusions of Injectafer. She tolerated these well, and she had a good objective response. As of September 2018 her transferrin saturation and ferritin levels were again low, consistent with iron deficiency. She was not anemic, but she did report significant fatigue, and she was given further parenteral iron replacement with 2 additional infusions of Injectafer. She had a very good clinical response. At her follow-up visit on 08/20/2019 she was mildly anemic again with her transferrin saturation low at 16%, consistent with iron deficiency. She also was found to have an elevated methylmalonic acid level, consistent with B12 deficiency. She was given a single infusion of Injectafer, and she also started B12 replacement. She did show symptomatic improvement. However, she is now mildly anemic again with transferrin saturation and ferritin level consistent with iron deficiency. Plan: Labs from today were discussed in detail and a copy was given to Mrs. North. WBC 4.4 hemoglobin 10.9 platelets 225,000 per iron saturation is improved today 22.1% compared to 11.4% on October 25. Her ferritin is 250 and was treated 27 on October 26, 2019, her iron level today is 55 and was 36 on October 26, 2019. 2. She will continue observation for now. Plan to recheck her labs including CBC CMP and iron studies in 1 month at which time she will have a repeat follow-up. 3. Ms. North was instructed to contact us in the interim should questions or problems arise. 4. She did not have iFOB checked as requested on her last visit. She states she has had multiple colonoscopies in the past. If her iron and hemoglobin are not improving in 1 month we will need to encourage her to do the iFOB again. Signed By: Timothy Iyer-, AOCNP Naresh Gavin MD <<Signature on File>>
== END 2019-12-18 23:59 | disposition home or self-care (01) ==
LOC: ONCMED 07:13
PROVIDERS: PCP Internal Medicine; Visit Provider Nurse Practitioner
DX: D50.9 Iron deficiency anemia, unspecified (principal); F41.9 Anxiety disorder, unspecified; I10 Essential (primary) hypertension
CPT/HCPCS: 82728; 83540; 83550; 85025; 99214

== ENCOUNTER 2020-01-13 05:44 | Outpatient (RCR) | payer MEDICARE, OTHER, SELFPAY ==
[2019-12-28 15:33] LABS: Basophils % 0.7 %; Eosinophils # 0.1 10^3/uL (0.0-0.8); Eosinophils % 2.5 %; Hematocrit 34.1 % (37.0-47.0); Hemoglobin 10.5 g/dL (11.5-15.3); Lymphocytes # 1.1 10^3/uL (0.8-4.8); Lymphocytes % 25.2 %; Mean Corpuscular HGB Conc 30.8 g/dL (30.0-36.0); Mean Corpuscular Hemoglobin 30.2 pg (28.0-34.0); Mean Platelet Volume 10.3 fL (7.4-10.4); Monocytes # 0.4 10^3/uL (0.2-0.9); Monocytes % 9.7 %; Neutrophils # 2.74 10^3/uL (1.8-7.7); Neutrophils % 61.5 %; Nucleated Red Blood Cells % 0 %; Platelet Count 206 10^3/cmm (130-400); Red Blood Count 3.48 10^6/uL (4.1-5.3); Red Cell Distribution Width 13.2 % (12.1-15.1); White Blood Count 4.5 10^3/uL (4.0-10.0)
[2019-12-28 15:50] LABS: Alanine Aminotransferase 8 U/L (0-33); Albumin Level 3.8 g/dL (3.5-5.2); Alkaline Phosphatase 77 IU/L (35-105); Anion Gap 11.8 (5-19); Aspartate Amino Transferase 13 U/L (0-32); Blood Urea Nitrogen 19 mg/dL (8-23); Calcium 8.5 mg/dL (8.5-10.5); Carbon Dioxide 26 mmol/L (22-29); Chloride 106 mmol/L (98-107); Ferritin 147 ng/mL (15-150); Glucose 91 mg/dL (65-115); Iron 36 ug/dL (37-145); Osmolality Calculated 286 mOsm/kg (285-295); Percent Saturation 13.6 % (20-50); Potassium 3.8 mmol/L (3.5-5.1); Sodium 140 mmol/L (136-145); Total Bilirubin 0.2 mg/dL (0.15-1.2); Total Iron Binding Capacity 263 mcg/dl; Total Protein 6.8 g/dL (6.6-8.7); Unsaturated Iron Binding 227 ug/dL (112-347)
[2020-01-13 11:34] LABS: Alanine Aminotransferase 9 U/L (0-33); Albumin Level 4.1 g/dL (3.5-5.2); Alkaline Phosphatase 81 IU/L (35-105); Aspartate Amino Transferase 13 U/L (0-32); Blood Urea Nitrogen 30 mg/dL (8-23); Calcium 8.9 mg/dL (8.5-10.5); Carbon Dioxide 26 mmol/L (22-29); Chloride 105 mmol/L (98-107); Ferritin 90 ng/mL (15-150); Globulin 2.9 g/dL (1.3-4.6); Glucose 115 mg/dL (65-115); Iron 53 ug/dL (37-145); Osmolality Calculated 288 mOsm/kg (285-295); Percent Saturation 17.3 % (20-50); Sodium 140 mmol/L (136-145); Total Bilirubin 0.3 mg/dL (0.15-1.2); Total Iron Binding Capacity 306 mcg/dl; Unsaturated Iron Binding 253 ug/dL (112-347)
[2020-01-13 11:48] LABS: Basophils % 0.2 %; Eosinophils # 0.2 10^3/uL (0.0-0.8); Eosinophils % 2.7 %; Hematocrit 35.5 % (37.0-47.0); Hemoglobin 11.1 g/dL (11.5-15.3); Lymphocytes # 1.4 10^3/uL (0.8-4.8); Lymphocytes % 24.4 %; Mean Corpuscular HGB Conc 31.3 g/dL (30.0-36.0); Mean Corpuscular Hemoglobin 30.7 pg (28.0-34.0); Mean Corpuscular Volume 98.1 fL (81-99); Mean Platelet Volume 10.1 fL (7.4-10.4); Monocytes # 0.5 10^3/uL (0.2-0.9); Monocytes % 8.9 %; Neutrophils # 3.56 10^3/uL (1.8-7.7); Neutrophils % 63.3 %; Nucleated Red Blood Cells % 0 %; Platelet Count 253 10^3/cmm (130-400); Red Blood Count 3.62 10^6/uL (4.1-5.3); Red Cell Distribution Width 13.1 % (12.1-15.1); White Blood Count 5.6 10^3/uL (4.0-10.0)
--- NOTE | 2020-01-17 10:55 | ONC FU_ITS ---
Dr. Gavin Patient Follow-Up Note Patient: Leticia North Unit #: [id number]: 1945 Dicatated By: Naresh Gavin M.D.Date of Visit:Jan 13, 2020 Onc Med Follow-up/Prog Note Chief Complaint: Anemia. History of Present Illness: This is a 74 year-old woman with iron deficiency anemia. She has had recurrent episodes of iron deficiency anemia, presumed to be due to inadequate oral iron absorption, as multiple GI studies had failed to document any GI blood loss. Her anemia has been managed with parenteral iron replacement, as in the past she had not responded to oral iron supplements. She had typically required parenteral iron about every 6 months. On one occasion her anemia was severe enough that she did require transfusion. I had seen her initially on 06/11/2018. Her laboratory studies one week earlier had shown mild anemia with hemoglobin 11.3 g and hematocrit 35.5%. The red cell indices were borderline low. The white blood cell count was 4900 and the platelet count was 300,000. The serum iron was low at 41 mcg/dL with transferrin saturation 9.6% and the ferritin was low at 6.0 ng/mL, consistent with iron deficiency. At that time she reported that with her most recent prior Injectafer and fusion she had developed significant anxiety. After discussion with her, she opted to proceed with 2 infusions of Injectafer, but with premedication which included dexamethasone, Benadryl, and lorazepam. She tolerated the infusions well. Her medical illnesses, in addition to anemia and anxiety, include hypertension, degenerative arthritis, and glaucoma. She also has a history of thyroid nodule. She is a nonsmoker. INTERIM HISTORY: Her repeat laboratory studies in September 2018 showed normal hemoglobin at 13.0 g. However, her transferrin saturation was low at 8.9% and the ferritin was also low at 17.0 ng/mL, consistent with iron deficiency, and I did opt to give her further parenteral iron replacement with 2 additional infusions of Injectafer. At her follow-up visit in December 2018 her hemoglobin had increased to 13.1 g with transferrin saturation 21%. She was feeling significantly better. However, at her follow-up visit on 08/20/2019 she was significantly more fatigued. Her hemoglobin was back down to 11.9 g with transferrin saturation low at 16%. In addition, her methylmalonic acid level was elevated at 892 mmol/L. She was given a single infusion of Injectafer. She also started B12 replacement. I had seen her for a follow-up visit on 10/28/2019. She continues to complain of having poor energy. As she was still mildly anemic with low transferrin saturation, she was given further parenteral iron replacement with 2 infusions of Injectafer. She is seen for a follow-up visit. She says her energy has been a little better following the parenteral iron in October, but overall she still feels terrible, as she has been feeling weak and she has had low blood pressure. She did cut her blood pressure medication in half. Her ECOG score is 1. She has good appetite. She has no fever or night sweats. She says her breathing is not too good, but not too bad. She does not complain of cough. She was having fullness in her chest, and that is not as bad now. She has no GI or complaints. She has no significant joint or bone pain. She does not complain of headache. She occasionally has dizziness. She has no focal neurologic symptoms. Medications: hydroCHLOROthiazide 0.5 Tablet (of 25 mg) Oral daily, LORazepam 1 Tablet (of 0.5 mg) Oral b.i.d. PRN Allergies: iron Review of Systems: Constitutional - She still has some weakness, but she is able to do light house work. Her appetite is good and weight is stable. No fever, night sweats, or hot flashes. ECOG score is 1, ENMT - No sinus congestion/drainage. No mouth sores. No sore throat or difficulty swallowing, Hematologic/Lymphatic - No abnormal bruising or bleeding, Respiratory - She has occasional episodes of shortness of breath. No cough. No pleuritic pain or hemoptysis, Cardiovascular - No angina pain. She reports the fullness feeling she was having in her chest has improved. No palpitations, Gastrointestinal - No nausea or vomiting. No heartburn or acid reflux. No diarrhea or constipation. No blood in the stool or black stools, Genitourinary (F) - No dysuria or hematuria. No urinary frequency. No urgency or incontinence, Musculoskeletal - No joint or bone pain, Integumentary - No skin complications, Neurologic - No headache. She occasional has some dizziness. No numbness or tingling. No other focal neurologic symptoms, Psychiatric - No anxiety or depression. She is taking lorazepam for sleep. Vital Signs: Performed on Jan 13, 2020 12:51 Height - 67.00 in Weight - 220.0 lbs BSA - 2.11 sq.m BMI - 34.46 (HIGH) Temperature - 98.4 F Pulse - 82 /min Respiration - 18 /min BP - 136/82 mm(hg) O2 Sat - 99 % Pain - 0 Physical Examination: Constitutional - She looks good generally, Eyes - Sclerae nonicteric. Conjunctivae clear, ENMT - No lesions noted in the oral cavity, Hematologic/Lymphatic - No cervical, clavicular, or axillary adenopathy, Respiratory - Lungs are clear with good air movement bilaterally, Cardiovascular - Heart rhythm is regular. There is no murmur, gallop, or rub noted, Abdomen - Soft. Liver and spleen are not enlarged. There is no abdominal mass or ascites noted and there is no inguinal adenopathy, Extremities - No edema, Neurologic - No focal neurologic deficits noted. Lab/Imaging: Test performed on Jan 13, 2020 11:05 Ferritin 90 ng/mL Iron 53 mcg/dL Sodium 140 mmol/L Iron Binding Capacity (TIBC) 306 mcg/dl Potassium 4.0 mmol/L % Iron Saturation 17.3 % Chloride 105 mmol/L CO2 26 mmol/L UIBC 253 mcg/dL Anion Gap 13.0 BUN 30 mg/dL Creatinine 1.3 mg/dL Cr Clearance (Est) 59.8100 mL/min Glucose 115 mg/dL Calcium 8.9 mg/dL Protein, Total 7.0 g/dL Albumin 4.1 g/dL Globulin 2.9 g/dL Bilirubin, Total 0.3 mg/dL ALT (SGPT) 9 U/L AST (SGOT) 13 U/L Alkaline Phosphatase 81 IU/L WBC 5.6 10 3/uL RBC 3.62 10 6/uL HGB 11.1 g/dL HCT 35.5 % MCV 98.1 fL MCH 30.7 pg MCHC 31.3 g/dL RDW 13.1 % Platelet Count 253 10 3/cmm MPV 10.1 fL Neutrophils 3.56 10 3/uL Lymphocytes 1.4 10 3/uL Monocytes 0.5 10 3/uL Eosinophils 0.2 10 3/uL Basophils 0.0 10 3/uL Neutrophil % 63.3 % Lymphocyte % 24.4 % Monocyte % 8.9 % Eosinophil % 2.7 % Basophils % 0.2 % NRBC % 0 % Impression: 1. Patient with recurrent episodes of iron deficiency anemia, presumed to be due to inadequate oral iron absorption. She has been managed with parenteral iron replacement, as her anemia had been refractory to oral iron supplements. 2. She had developed significant anxiety following a recent infusion of Injectafer, possibly due to infusion reaction. Her other medical illnesses include: 3. Hypertension. 4. Degenerative arthritis. 5. Glaucoma. 6. She has a history of thyroid nodule. 7. She has chronic anxiety. Her transferrin saturation and ferritin in May 2018 were again consistent with iron deficiency. She was just mildly anemic, but she was significantly fatigued. She was given parenteral iron replacement with 2 infusions of Injectafer. She tolerated these well, and she had a good objective response. As of September 2018 her transferrin saturation and ferritin levels were again low, consistent with iron deficiency. She was not anemic, but she did report significant fatigue, and she was given further parenteral iron replacement with 2 additional infusions of Injectafer. She had a very good clinical response. At her follow-up visit on 08/20/2019 she was mildly anemic again with her transferrin saturation low at 16%, consistent with iron deficiency. She also was found to have an elevated methylmalonic acid level, consistent with B12 deficiency. She was given a single infusion of Injectafer, and she also started B12 replacement. She did show symptomatic improvement. As of her follow-up visit on 10/28/2019 she had become mildly anemic again with transferrin saturation and ferritin level consistent with iron deficiency. As such, she was given further parenteral iron replacement with 2 infusions of Injectafer. Following that treatment, she continued to complain of weakness, and she also was having low blood pressure. She says her energy has been a little better since she cut her blood pressure medication in half, but her blood pressure has still been on the low side, and she continues to have fairly limited activity tolerance. Plan: Although she is still mildly anemic, for now I will just be monitoring her blood counts monthly. She will remain off her blood pressure medication unless her blood pressure is elevated. I will see her again in 3 months, or sooner as needed. Signed By: Naresh Gavin M.D. <<Signature on File>>
== END 2020-01-18 23:59 | disposition home or self-care (01) ==
LOC: ONCMED 05:44
PROVIDERS: Nurse Practitioner; PCP Internal Medicine; Visit Provider Internal Medicine Medical Oncology
DX: D50.9 Iron deficiency anemia, unspecified (principal); I10 Essential (primary) hypertension; M19.90 Unspecified osteoarthritis, unspecified site; H40.9 Unspecified glaucoma; E04.1 Nontoxic single thyroid nodule; F41.9 Anxiety disorder, unspecified
CPT/HCPCS: 36415; 80053; 82728; 83540; 83550; 85025; 99214

== ENCOUNTER 2020-02-15 09:32 | Outpatient (CLI) | payer MEDICARE, OTHER, SELFPAY ==
[2020-02-15 10:03] LABS: Basophils % 0.6 %; Eosinophils # 0.2 10^3/uL (0.0-0.8); Eosinophils % 4.5 %; Hematocrit 35.4 % (37.0-47.0); Hemoglobin 10.5 g/dL (11.5-15.3); Lymphocytes # 0.9 10^3/uL (0.8-4.8); Mean Corpuscular HGB Conc 29.7 g/dL (30.0-36.0); Mean Corpuscular Hemoglobin 28.4 pg (28.0-34.0); Mean Corpuscular Volume 95.7 fL (81-99); Mean Platelet Volume 10.1 fL (7.4-10.4); Monocytes # 0.4 10^3/uL (0.2-0.9); Neutrophils # 2.09 10^3/uL (1.8-7.7); Neutrophils % 58.6 %; Nucleated Red Blood Cells % 0 %; Platelet Count 247 10^3/cmm (130-400); Red Cell Distribution Width 12.8 % (12.1-15.1); White Blood Count 3.6 10^3/uL (4.0-10.0)
[2020-02-15 10:22] LABS: Ferritin 27 ng/mL (15-150); Iron 40 ug/dL (37-145); Percent Saturation 12.6 % (20-50); Total Iron Binding Capacity 317 mcg/dl; Unsaturated Iron Binding 277 ug/dL (112-347)
== END 2020-02-15 09:33 | disposition home or self-care (01) ==
PROVIDERS: PCP Internal Medicine; Visit Provider Internal Medicine Medical Oncology
DX: D50.8 Other iron deficiency anemias (principal)
CPT/HCPCS: 36415; 82728; 83540; 83550; 85025

== ENCOUNTER 2020-02-25 06:10 | Outpatient (CLI) | payer MEDICARE, OTHER, SELFPAY ==
[2020-02-25] MEDS: LORazepam 2 mg/mL INJ 1 mL 0.5 MG IVP (14:10)
[2020-02-25] MEDS: sodium chloride 0.9% (100 ml) 100 ML 75 ML (14:10)
[2020-02-25] MEDS: ferric carboxy (IVPB) 750 MG in sodium chloride 0.9% (100 ml) 100 ML 345 MG IV (14:43)
== END 2020-02-25 06:11 | disposition home or self-care (01) ==
LOC: ONCMED 06:11
PROVIDERS: PCP Internal Medicine; Visit Provider Internal Medicine Medical Oncology
DX: D50.8 Other iron deficiency anemias (principal)
CPT/HCPCS: 96365; 96367; 96375; J1100; J1200; J1439; J2060

== ENCOUNTER 2020-03-03 06:14 | Outpatient (CLI) | payer MEDICARE, OTHER, SELFPAY ==
[2020-03-03] MEDS: sodium chloride 0.9% 250 ML 75 ML IV (14:30)
[2020-03-03] MEDS: LORazepam 2 mg/mL INJ 1 mL 0.5 MG IVP (14:30)
[2020-03-03] MEDS: ferric carboxy (IVPB) 750 MG in sodium chloride 0.9% (100 ml) 100 ML 345 MG IV (15:10)
== END 2020-03-03 06:15 | disposition home or self-care (01) ==
LOC: ONCMED 06:16
PROVIDERS: PCP Internal Medicine; Visit Provider Internal Medicine Medical Oncology
DX: D50.8 Other iron deficiency anemias (principal)
CPT/HCPCS: 96365; 96367; 96375; J1100; J1200; J1439; J2060; J7050

== ENCOUNTER 2020-03-14 06:15 | Outpatient (CLI) | payer MEDICARE, OTHER, SELFPAY ==
[2020-03-14 10:11] LABS: Basophils % 0.5 %; Eosinophils # 0.1 10^3/uL (0.0-0.8); Eosinophils % 3.7 %; Lymphocytes # 0.9 10^3/uL (0.8-4.8); Lymphocytes % 24.7 %; Mean Corpuscular Hemoglobin 30.3 pg (28.0-34.0); Mean Platelet Volume 10.2 fL (7.4-10.4); Monocytes # 0.3 10^3/uL (0.2-0.9); Neutrophils # 2.32 10^3/uL (1.8-7.7); Neutrophils % 61.8 %; Nucleated Red Blood Cells % 0 %; Platelet Count 209 10^3/cmm (130-400); Red Blood Count 2.97 10^6/uL (4.1-5.3); White Blood Count 3.8 10^3/uL (4.0-10.0)
[2020-03-14 10:24] LABS: Ferritin 451 ng/mL (15-150); Iron 56 ug/dL (37-145); Percent Saturation 21.3 % (20-50); Total Iron Binding Capacity 262 mcg/dl; Unsaturated Iron Binding 206 ug/dL (112-347)
== END 2020-03-14 06:16 | disposition home or self-care (01) ==
LOC: ONCMED 06:17
PROVIDERS: PCP Internal Medicine; Visit Provider Internal Medicine Medical Oncology
DX: D50.8 Other iron deficiency anemias (principal)
CPT/HCPCS: 36415; 82728; 83540; 83550; 85025

== ENCOUNTER 2020-04-19 11:39 | Outpatient (CLI) | payer MEDICARE, OTHER, SELFPAY ==
[2020-04-19 12:32] LABS: Basophils % 0.4 %; Eosinophils # 0.1 10^3/uL (0.0-0.8); Hematocrit 29.1 % (37.0-47.0); Hemoglobin 8.6 g/dL (11.5-15.3); Lymphocytes # 1.1 10^3/uL (0.8-4.8); Lymphocytes % 24.3 %; Mean Corpuscular HGB Conc 29.6 g/dL (30.0-36.0); Mean Platelet Volume 10.1 fL (7.4-10.4); Monocytes # 0.6 10^3/uL (0.2-0.9); Monocytes % 12.2 %; Neutrophils # 2.75 10^3/uL (1.8-7.7); Neutrophils % 60.9 %; Nucleated Red Blood Cells % 0 %; Platelet Count 252 10^3/cmm (130-400); Red Blood Count 2.97 10^6/uL (4.1-5.3); Red Cell Distribution Width 14.6 % (12.1-15.1); White Blood Count 4.5 10^3/uL (4.0-10.0)
[2020-04-19 13:20] LABS: Alanine Aminotransferase 9 U/L (0-33); Albumin Level 3.8 g/dL (3.5-5.2); Alkaline Phosphatase 91 IU/L (35-105); Aspartate Amino Transferase 12 U/L (0-32); Blood Urea Nitrogen 15 mg/dL (8-23); Calcium 8.7 mg/dL (8.5-10.5); Carbon Dioxide 25 mmol/L (22-29); Chloride 106 mmol/L (98-107); Ferritin 39 ng/mL (15-150); Globulin 2.6 g/dL (1.3-4.6); Glucose 97 mg/dL (65-115); Iron 25 ug/dL (37-145); Osmolality Calculated 295 mOsm/kg (285-295); Percent Saturation 7.3 % (20-50); Sodium 142 mmol/L (136-145); Total Bilirubin 0.2 mg/dL (0.15-1.2); Total Iron Binding Capacity 342 mcg/dl; Total Protein 6.4 g/dL (6.6-8.7); Unsaturated Iron Binding 317 ug/dL (112-347)
[2020-04-19] MEDS: sodium chloride 0.9% 250 ML 75 ML IV (14:11)
[2020-04-19] MEDS: diphenhydrAMINE 50 mg/mL SDV 1mL 25 MG IVP (14:28)
[2020-04-19] MEDS: LORazepam 2 mg/mL INJ 1 mL 0.5 MG IVP (14:30)
[2020-04-19] MEDS: ferric carboxy (IVPB) 750 MG in sodium chloride 0.9% (100 ml) 100 ML 345 MG IV (14:35)
--- NOTE | 2020-04-22 14:52 | ONC FU_ITS ---
Dr. Gavin Patient Follow-Up Note Patient: Leticia North Unit #: [id number]: 1945 Dicatated By: Naresh Gavin M.D.Date of Visit:Apr 19, 2020 Onc Med Follow-up/Prog Note Chief Complaint: Anemia. History of Present Illness: This is a 74 year-old woman with iron deficiency anemia. She has had recurrent episodes of iron deficiency anemia, presumed to be due to inadequate oral iron absorption, as multiple GI studies had failed to document any GI blood loss. Her anemia has been managed with parenteral iron replacement, as in the past she had not responded to oral iron supplements. She had typically required parenteral iron about every 6 months. On one occasion her anemia was severe enough that she did require transfusion. I had seen her initially on 06/11/2018. Her laboratory studies one week earlier had shown mild anemia with hemoglobin 11.3 g and hematocrit 35.5%. The red cell indices were borderline low. The white blood cell count was 4900 and the platelet count was 300,000. The serum iron was low at 41 mcg/dL with transferrin saturation 9.6% and the ferritin was low at 6.0 ng/mL, consistent with iron deficiency. At that time she reported that with her most recent prior Injectafer and fusion she had developed significant anxiety. After discussion with her, she opted to proceed with 2 infusions of Injectafer, but with premedication which included dexamethasone, Benadryl, and lorazepam. She tolerated the infusions well. Her medical illnesses, in addition to anemia and anxiety, include hypertension, degenerative arthritis, and glaucoma. She also has a history of thyroid nodule. She is a nonsmoker. INTERIM HISTORY: Her repeat laboratory studies in September 2018 showed normal hemoglobin at 13.0 g. However, her transferrin saturation was low at 8.9% and the ferritin was also low at 17.0 ng/mL, consistent with iron deficiency, and I did opt to give her further parenteral iron replacement with 2 additional infusions of Injectafer. At her follow-up visit in December 2018 her hemoglobin had increased to 13.1 g with transferrin saturation 21%. She was feeling significantly better. However, at her follow-up visit on 08/20/2019 she was significantly more fatigued. Her hemoglobin was back down to 11.9 g with transferrin saturation low at 16%. In addition, her methylmalonic acid level was elevated at 892 mmol/L. She was given a single infusion of Injectafer. She also started B12 replacement. I had seen her for a follow-up visit on 10/28/2019. She continued to complain of having poor energy. As she was still mildly anemic with low transferrin saturation, she was given further parenteral iron replacement with 2 infusions of Injectafer. During follow-up she remained mildly anemic. Her repeat serum iron studies on 02/15/2020 showed low transferrin saturation at 12.6% and the ferritin also had decreased to 27 ng/mL, consistent with iron deficiency. She was given 2 additional infusions of Injectafer. A repeat CBC on 02/13/2020 still showed hemoglobin low at 9.0 g but with normal transferrin saturation at 21% and with ferritin increased to 451 ng/mL. She is seen for a follow-up visit. She complains that she is really weak and that her activity is very limited. She is still able to do light work, though. ECOG score is 1. She has good appetite. She has no fever, night sweats, or hot flashes. She says her breathing has been very bad. She does not complain of cough and she has not been having chest pain. She has no GI/ complaints. In particular, she has not been aware of any blood in the stool. She has no significant joint or bone pain. She has no focal neurologic symptoms. Medications: She is currently not on any other prescription medication. Allergies: iron Review of Systems: Constitutional - She has been feeling really weak and her activity is limited. She is still doing light work, though. Appetite is good. She has no fever, night sweats, or hot flashes. ECOG score is 1, ENMT - No sinus congestion/drainage. No mouth sores. No sore throat or difficulty swallowing, Hematologic/Lymphatic - No abnormal bruising or bleeding, Respiratory - She says her breathing is very bad. No cough. No pleuritic pain or hemoptysis, Cardiovascular - No angina pain. No palpitations, Gastrointestinal - No nausea or vomiting. No heartburn or acid reflux. No diarrhea or constipation. No blood in the stool or black stools, Genitourinary (F) - No dysuria or hematuria. No urinary frequency. No urgency or incontinence, Musculoskeletal - No joint or bone pain, Integumentary - No skin rash, Neurologic - No headache or dizziness, but she occasionally loses balance. No numbness or tingling. No other focal neurologic symptoms, Psychiatric - No anxiety or depression. She sometimes has difficulty sleeping. Vital Signs: Performed on Apr 19, 2020 13:28 Height - 67.00 in Weight - 221.6 lbs (HIGH) BSA - 2.11 sq.m BMI - 34.71 (HIGH) Temperature - 98.8 F Pulse - 83 /min Respiration - 20 /min BP - 130/86 mm(hg) O2 Sat - 98 % Pain - 0 Physical Examination: Constitutional - She looks pretty good generally, Eyes - Sclerae nonicteric. Conjunctivae clear, ENMT - No lesions noted in the oral cavity, Hematologic/Lymphatic - No cervical, clavicular, or axillary adenopathy, Respiratory - Lungs are clear with good air movement bilaterally, Cardiovascular - Heart rhythm is regular. There is no murmur, gallop, or rub noted, Abdomen - Soft. Liver and spleen are not enlarged. There is no abdominal mass or ascites noted and there is no inguinal adenopathy, Extremities - No edema, Neurologic - No focal neurologic deficits noted. Lab/Imaging: Test performed on Apr 19, 2020 11:50 Ferritin 39 ng/mL Iron 25 mcg/dL Sodium 142 mmol/L Iron Binding Capacity (TIBC) 342 mcg/dl Potassium 4.0 mmol/L % Iron Saturation 7.3 % Chloride 106 mmol/L CO2 25 mmol/L UIBC 317 mcg/dL Anion Gap 15.0 BUN 15 mg/dL Creatinine 1.3 mg/dL Cr Clearance (Est) 60.25 mL/min Glucose 97 mg/dL Osmolality - Calculated 295 mOsm/kg Calcium 8.7 mg/dL Protein, Total 6.4 g/dL Albumin 3.8 g/dL Globulin 2.6 g/dL Bilirubin, Total 0.2 mg/dL ALT (SGPT) 9 U/L AST (SGOT) 12 U/L Alkaline Phosphatase 91 IU/L WBC 4.5 10 3/uL RBC 2.97 10 6/uL HGB 8.6 g/dL HCT 29.1 % MCV 98.0 fL MCH 29.0 pg MCHC 29.6 g/dL RDW 14.6 % Platelet Count 252 10 3/cmm MPV 10.1 fL Neutrophils 2.75 10 3/uL Lymphocytes 1.1 10 3/uL Monocytes 0.6 10 3/uL Eosinophils 0.1 10 3/uL Basophils 0.0 10 3/uL Neutrophil % 60.9 % Lymphocyte % 24.3 % Monocyte % 12.2 % Eosinophil % 2.0 % Basophils % 0.4 % NRBC % 0 % Test performed on Oct 26, 2019 12:40 Homocysteine 13.48 umol/L LDH (Total) 181 U/L Methylmalonic Acid 212 nmol/L Vitamin B12 648 pg/mL ESR (Sed Rate) 24 mm/hr NRBC 0.0 /100WBC Impression: 1. Patient with recurrent episodes of iron deficiency anemia, presumed to be due to inadequate oral iron absorption. She has been managed with parenteral iron replacement, as her anemia had been refractory to oral iron supplements. 2. She had developed significant anxiety following a recent infusion of Injectafer, possibly due to infusion reaction. Her other medical illnesses include: 3. Hypertension. 4. Degenerative arthritis. 5. Glaucoma. 6. She has a history of thyroid nodule. 7. She has chronic anxiety. Her transferrin saturation and ferritin in May 2018 were again consistent with iron deficiency. She was just mildly anemic, but she was significantly fatigued. She was given parenteral iron replacement with 2 infusions of Injectafer. She tolerated these well, and she had a good objective response. As of September 2018 her transferrin saturation and ferritin levels were again low, consistent with iron deficiency. She was not anemic, but she did report significant fatigue, and she was given further parenteral iron replacement with 2 additional infusions of Injectafer. She had a very good clinical response. At her follow-up visit on 08/20/2019 she was mildly anemic again with her transferrin saturation low at 16%, consistent with iron deficiency. She also was found to have an elevated methylmalonic acid level, consistent with B12 deficiency. She was given a single infusion of Injectafer, and she also started B12 replacement. She did show symptomatic improvement. As of her follow-up visit on 10/28/2019 she had become mildly anemic again with transferrin saturation and ferritin level consistent with iron deficiency. As such, she was given further parenteral iron replacement with 2 infusions of Injectafer. Following that treatment, she continued to complain of weakness, and she also was having low blood pressure. She remained mildly anemic. Her repeat serum iron studies on 02/15/2020 showed low transferrin saturation and her ferritin at [place] was also low again, and she was given 2 additional infusions of Injectafer. A repeat CBC on 02/13/2020 still showed low hemoglobin at 9.0 g but with normal transferrin saturation at 21% and with ferritin level increased to 451 ng/mL. She presents now with increased fatigue and shortness of breath. There has been further decrease in her hemoglobin to 8.6 g, but her transferrin saturation now is low again at 7.3% and her ferritin is back down to 39 ng/mL, consistent with iron deficiency. Plan: She will again be treated with 2 infusions of Injectafer, scheduled 1 week apart. I will have her repeat stool IFOB. If she is not showing adequate response to the parenteral iron replacement, she will need to undergo bone marrow aspiration/biopsy. Signed By: Naresh Gavin M.D. <<Signature on File>>
== END 2020-04-19 11:40 | disposition home or self-care (01) ==
LOC: ONCMED 11:42
PROVIDERS: PCP Internal Medicine; Visit Provider Internal Medicine Medical Oncology
DX: D50.9 Iron deficiency anemia, unspecified (principal); R53.83 Other fatigue; R06.02 Shortness of breath; I10 Essential (primary) hypertension; M19.90 Unspecified osteoarthritis, unspecified site; H40.9 Unspecified glaucoma; F41.9 Anxiety disorder, unspecified; E04.1 Nontoxic single thyroid nodule
CPT/HCPCS: 36415; 80053; 82728; 83540; 83550; 85025; 96365; 96367; 96375; 99214; J1100; J1200; J1439; J2060; J7050

== ENCOUNTER 2020-04-21 10:59 | Outpatient (CLI) | payer MEDICARE, OTHER, SELFPAY | END 2020-04-21 11:00 | disposition home or self-care (01) | PROVIDERS: PCP Internal Medicine; Visit Provider Internal Medicine Medical Oncology | DX: D50.9 Iron deficiency anemia, unspecified (principal) | CPT/HCPCS: 82274 ==

== ENCOUNTER 2020-04-26 05:53 | Outpatient (CLI) | payer MEDICARE, OTHER, SELFPAY ==
[2020-04-26] MEDS: sodium chloride 0.9% 250 ML 75 ML IV (13:50)
[2020-04-26] MEDS: diphenhydrAMINE 50 mg/mL SDV 1mL 25 MG IV (14:15)
[2020-04-26] MEDS: LORazepam 2 mg/mL INJ 1 mL 0.5 MG IV (14:18)
[2020-04-26] MEDS: ferric carboxy (IVPB) 750 MG in sodium chloride 0.9% (100 ml) 100 ML 460 MG IV (14:25)
== END 2020-04-26 05:54 | disposition home or self-care (01) ==
LOC: ONCMED 05:56
PROVIDERS: PCP Internal Medicine; Visit Provider Internal Medicine Medical Oncology
DX: D50.8 Other iron deficiency anemias (principal)
CPT/HCPCS: 96365; 96367; 96375; J1100; J1200; J1439; J2060; J7050

== ENCOUNTER 2020-05-03 05:43 | Outpatient (CLI) | payer MEDICARE, OTHER, SELFPAY ==
[2020-05-03 09:38] LABS: Basophils % 0.2 %; Eosinophils # 0.1 10^3/uL (0.0-0.8); Eosinophils % 2.6 %; Hematocrit 34.4 % (37.0-47.0); Hemoglobin 10.2 g/dL (11.5-15.3); Lymphocytes # 0.8 10^3/uL (0.8-4.8); Lymphocytes % 18.6 %; Mean Corpuscular HGB Conc 29.7 g/dL (30.0-36.0); Mean Corpuscular Volume 101.2 fL (81-99); Mean Platelet Volume 10.5 fL (7.4-10.4); Monocytes # 0.5 10^3/uL (0.2-0.9); Monocytes % 11.3 %; Neutrophils # 2.83 10^3/uL (1.8-7.7); Neutrophils % 66.8 %; Nucleated Red Blood Cells % 0 %; Platelet Count 233 10^3/cmm (130-400); Red Cell Distribution Width 17.5 % (12.1-15.1); White Blood Count 4.2 10^3/uL (4.0-10.0)
== END 2020-05-03 05:44 | disposition home or self-care (01) ==
PROVIDERS: PCP Internal Medicine; Visit Provider Internal Medicine Medical Oncology
DX: D50.9 Iron deficiency anemia, unspecified (principal)
CPT/HCPCS: 36415; 85025

== ENCOUNTER 2020-05-23 07:41 | Outpatient (CLI) | payer MEDICARE, OTHER, SELFPAY ==
[2020-05-23 08:37] LABS: Basophils % 0.5 %; Eosinophils # 0.1 10^3/uL (0.0-0.8); Eosinophils % 1.4 %; Hematocrit 39.5 % (37.0-47.0); Hemoglobin 12.3 g/dL (11.5-15.3); Lymphocytes % 24.2 %; Mean Corpuscular HGB Conc 31.1 g/dL (30.0-36.0); Mean Corpuscular Hemoglobin 30.1 pg (28.0-34.0); Mean Corpuscular Volume 96.8 fL (81-99); Mean Platelet Volume 10.3 fL (7.4-10.4); Monocytes # 0.4 10^3/uL (0.2-0.9); Monocytes % 9.3 %; Neutrophils # 2.76 10^3/uL (1.8-7.7); Neutrophils % 64.4 %; Nucleated Red Blood Cells % 0 %; Platelet Count 222 10^3/cmm (130-400); Red Blood Count 4.08 10^6/uL (4.1-5.3); Red Cell Distribution Width 14.9 % (12.1-15.1); White Blood Count 4.3 10^3/uL (4.0-10.0)
[2020-05-23 08:58] LABS: Alanine Aminotransferase 15 U/L (0-33); Alkaline Phosphatase 104 IU/L (35-105); Aspartate Amino Transferase 20 U/L (0-32); Blood Urea Nitrogen 16 mg/dL (8-23); Calcium 9.2 mg/dL (8.5-10.5); Carbon Dioxide 23 mmol/L (22-29); Chloride 105 mmol/L (98-107); Ferritin 312 ng/mL (15-150); Globulin 3.1 g/dL (1.3-4.6); Glucose 119 mg/dL (65-115); Iron 39 ug/dL (37-145); Osmolality Calculated 296 mOsm/kg (285-295); Percent Saturation 15.4 % (20-50); Sodium 142 mmol/L (136-145); Total Bilirubin 0.3 mg/dL (0.15-1.2); Total Iron Binding Capacity 253 mcg/dl; Total Protein 7.1 g/dL (6.6-8.7); Unsaturated Iron Binding 214 ug/dL (112-347)
--- NOTE | 2020-05-27 15:26 | ONC FU_ITS ---
Dr. Gavin Patient Follow-Up Note Patient: Leticia North Unit #: [id number]: 1945 Dicatated By: Naresh Gavin M.D.Date of Visit:May 23, 2020 Onc Med Follow-up/Prog Note Chief Complaint: Anemia. History of Present Illness: This is a 74 year-old woman with iron deficiency anemia. She has had recurrent episodes of iron deficiency anemia, presumed to be due to inadequate oral iron absorption, as multiple GI studies had failed to document any GI blood loss. Her anemia has been managed with parenteral iron replacement, as in the past she had not responded to oral iron supplements. She had typically required parenteral iron about every 6 months. On one occasion her anemia was severe enough that she did require transfusion. I had seen her initially on 06/11/2018. Her laboratory studies one week earlier had shown mild anemia with hemoglobin 11.3 g and hematocrit 35.5%. The red cell indices were borderline low. The white blood cell count was 4900 and the platelet count was 300,000. The serum iron was low at 41 mcg/dL with transferrin saturation 9.6% and the ferritin was low at 6.0 ng/mL, consistent with iron deficiency. At that time she reported that with her most recent prior Injectafer and fusion she had developed significant anxiety. After discussion with her, she opted to proceed with 2 infusions of Injectafer, but with premedication which included dexamethasone, Benadryl, and lorazepam. She tolerated the infusions well. Her medical illnesses, in addition to anemia and anxiety, include hypertension, degenerative arthritis, and glaucoma. She also has a history of thyroid nodule. She is a nonsmoker. INTERIM HISTORY: Her repeat laboratory studies in September 2018 showed normal hemoglobin at 13.0 g. However, her transferrin saturation was low at 8.9% and the ferritin was also low at 17.0 ng/mL, consistent with iron deficiency, and I did opt to give her further parenteral iron replacement with 2 additional infusions of Injectafer. At her follow-up visit in December 2018 her hemoglobin had increased to 13.1 g with transferrin saturation 21%. She was feeling significantly better. However, at her follow-up visit on 08/20/2019 she was significantly more fatigued. Her hemoglobin was back down to 11.9 g with transferrin saturation low at 16%. In addition, her methylmalonic acid level was elevated at 892 mmol/L. She was given a single infusion of Injectafer. She also started B12 replacement. I had seen her for a follow-up visit on 10/28/2019. She continued to complain of having poor energy. As she was still mildly anemic with low transferrin saturation, she was given further parenteral iron replacement with 2 infusions of Injectafer. During follow-up she remained mildly anemic. Her repeat serum iron studies on 02/15/2020 showed low transferrin saturation at 12.6% and the ferritin also had decreased to 27 ng/mL, consistent with iron deficiency. She was given 2 additional infusions of Injectafer. A repeat CBC on 02/13/2020 still showed hemoglobin low at 9.0 g but with normal transferrin saturation at 21% and with ferritin increased to 451 ng/mL. With evidence of persistent iron deficiency anemia, she was given additional parenteral iron replacement with 2 infusions of Injectafer in February 2020 and again in April 2020. She is seen for a follow-up visit. She has been feeling better since her parenteral iron infusions last month. She still has some fatigue. Her ECOG score is one. Her appetite is back to normal. She does not have fever or night sweats. She is still sometimes short of breath. She does not have cough, and she does not complain of chest pain. She has no GI or complaints. In particular, she has not been aware of any blood in the stool. She has no significant joint or bone pain. Her dizziness has improved. She has no focal neurologic symptoms. Medications: She has currently not on prescription medication. Allergies: iron Vital Signs: Performed on May 23, 2020 09:31 Height - 67.00 in Weight - 211.6 lbs (LOW) BSA - 2.07 sq.m BMI - 33.14 (HIGH) Temperature - 97.2 F (LOW) Pulse - 78 /min Respiration - 18 /min BP - 161/86 mm(hg) (HIGH) O2 Sat - 97 % Pain - 0 Fatigue - 0 Physical Examination: Constitutional - She looks pretty good generally, Eyes - Sclerae nonicteric. Conjunctivae clear, ENMT - No lesions noted in the oral cavity, Hematologic/Lymphatic - No cervical, clavicular, or axillary adenopathy, Respiratory - Lungs are clear with good air movement bilaterally, Cardiovascular - Heart rhythm is regular. There is no murmur, gallop, or rub noted, Abdomen - Soft. Liver and spleen are not enlarged. There is no abdominal mass or ascites noted and there is no inguinal adenopathy, Extremities - No edema, Neurologic - No focal neurologic deficits noted. Lab/Imaging: Test performed on May 23, 2020 08:15 Ferritin 312 ng/mL Iron 39 mcg/dL Sodium 142 mmol/L Iron Binding Capacity (TIBC) 253 mcg/dl Potassium 4.0 mmol/L % Iron Saturation 15.4 % Chloride 105 mmol/L CO2 23 mmol/L UIBC 214 mcg/dL Anion Gap 18.0 BUN 16 mg/dL Creatinine 1.4 mg/dL Cr Clearance (Est) 53.4200 mL/min Glucose 119 mg/dL Osmolality - Calculated 296 mOsm/kg Calcium 9.2 mg/dL Protein, Total 7.1 g/dL Albumin 4.0 g/dL Globulin 3.1 g/dL Bilirubin, Total 0.3 mg/dL ALT (SGPT) 15 U/L AST (SGOT) 20 U/L Alkaline Phosphatase 104 IU/L WBC 4.3 10 3/uL RBC 4.08 10 6/uL HGB 12.3 g/dL HCT 39.5 % MCV 96.8 fL MCH 30.1 pg MCHC 31.1 g/dL RDW 14.9 % Platelet Count 222 10 3/cmm MPV 10.3 fL Neutrophils 2.76 10 3/uL Lymphocytes 1.0 10 3/uL Monocytes 0.4 10 3/uL Eosinophils 0.1 10 3/uL Basophils 0.0 10 3/uL Neutrophil % 64.4 % Lymphocyte % 24.2 % Monocyte % 9.3 % Eosinophil % 1.4 % Basophils % 0.5 % NRBC % 0 % Test performed on Apr 21, 2020 09:30 Occult Blood -Fecal, [place] IFOB N Historic Problem List: 1. Iron deficiency anemia, presumed to be due to inadequate oral iron absorption. She has been managed with parenteral iron replacement, as her anemia had been refractory to oral iron supplements. 2. She had developed significant anxiety following a recent infusion of Injectafer, possibly due to infusion reaction. 3. Hypertension. 4. Degenerative arthritis. 5. Glaucoma. 6. She has a history of thyroid nodule. 7. She has chronic anxiety. Problems Addressed with this Encounter and Plan: Patient with recurrent episodes of iron deficiency anemia. These have not been responsive to oral iron supplementation. She had continued to have mild anemia despite multiple infusions of Injectafer. Her stool FIT was repeated and was negative. She most recently was given 2 additional infusions of Injectafer in April 2020, and her hemoglobin/hematocrit levels have improved, to the point that they are now just borderline low. She continues to have low transferrin saturation at 15.4%, though with ferritin increased to 312 ng/mL. With those findings, she will be followed on observation/expectant management. However, I will want to monitor her closely with repeat CBCs monthly and a follow-up visit in 3 months. Signed By: Naresh Gavin M.D. <<Signature on File>>
== END 2020-05-23 07:42 | disposition home or self-care (01) ==
LOC: ONCMED 07:44
PROVIDERS: PCP Internal Medicine; Visit Provider Internal Medicine Medical Oncology
DX: D50.9 Iron deficiency anemia, unspecified (principal); I10 Essential (primary) hypertension; M19.90 Unspecified osteoarthritis, unspecified site; F41.9 Anxiety disorder, unspecified
CPT/HCPCS: 36415; 80053; 82728; 83540; 83550; 85025; G0463

== ENCOUNTER 2020-06-21 08:30 | Outpatient (CLI) | payer MEDICARE, OTHER, SELFPAY ==
[2020-06-21 09:15] LABS: Basophils % 0.2 %; Eosinophils # 0.1 10^3/uL (0.0-0.8); Eosinophils % 2.5 %; Hematocrit 37.5 % (37.0-47.0); Hemoglobin 11.3 g/dL (11.5-15.3); Lymphocytes # 0.7 10^3/uL (0.8-4.8); Lymphocytes % 15.7 %; Mean Corpuscular HGB Conc 30.1 g/dL (30.0-36.0); Mean Corpuscular Hemoglobin 28.8 pg (28.0-34.0); Mean Corpuscular Volume 95.4 fL (81-99); Mean Platelet Volume 10.2 fL (7.4-10.4); Monocytes # 0.5 10^3/uL (0.2-0.9); Neutrophils # 3.36 10^3/uL (1.8-7.7); Neutrophils % 71.4 %; Nucleated Red Blood Cells % 0 %; Platelet Count 203 10^3/cmm (130-400); Red Blood Count 3.93 10^6/uL (4.1-5.3); Red Cell Distribution Width 14.1 % (12.1-15.1); White Blood Count 4.7 10^3/uL (4.0-10.0)
[2020-06-21 09:46] LABS: Ferritin 94 ng/mL (15-150); Iron 32 ug/dL (37-145); Percent Saturation 10.5 % (20-50); Total Iron Binding Capacity 302 mcg/dl; Unsaturated Iron Binding 270 ug/dL (112-347)
== END 2020-06-21 08:31 | disposition home or self-care (01) ==
PROVIDERS: PCP Internal Medicine; Visit Provider Internal Medicine Medical Oncology
DX: D50.9 Iron deficiency anemia, unspecified (principal)
CPT/HCPCS: 36415; 82728; 83540; 83550; 85025

== ENCOUNTER 2020-06-24 05:54 | Outpatient (CLI) | payer MEDICARE, OTHER, SELFPAY ==
[2020-06-24] MEDS: sodium chloride 0.9% 250 ML 75 ML IV (08:57)
[2020-06-24] MEDS: LORazepam 2 mg/mL INJ 1 mL 0.5 MG IV (08:57)
[2020-06-24] MEDS: diphenhydrAMINE 50 mg/mL SDV 1mL 25 MG IVP (09:03)
[2020-06-24] MEDS: sodium chloride 0.9% (100 ml) 100 ML 500 ML (09:03)
[2020-06-24] MEDS: ferric carboxy (IVPB) 750 MG in sodium chloride 0.9% (100 ml) 100 ML 460 MG IV (09:37)
== END 2020-06-24 05:55 | disposition home or self-care (01) ==
LOC: ONCMED 05:57
PROVIDERS: PCP Internal Medicine; Visit Provider Internal Medicine Medical Oncology
DX: D50.8 Other iron deficiency anemias (principal)
CPT/HCPCS: 96365; 96367; 96375; J1100; J1200; J1439; J2060; J7050

== ENCOUNTER 2020-07-19 07:36 | Outpatient (CLI) | payer MEDICARE, OTHER, SELFPAY ==
[2020-07-19 08:34] LABS: Basophils % 0.2 %; Eosinophils # 0.2 10^3/uL (0.0-0.8); Eosinophils % 3.4 %; Hematocrit 39.6 % (37.0-47.0); Hemoglobin 12.3 g/dL (11.5-15.3); Lymphocytes # 0.7 10^3/uL (0.8-4.8); Lymphocytes % 11.1 %; Mean Corpuscular HGB Conc 31.1 g/dL (30.0-36.0); Mean Corpuscular Hemoglobin 29.1 pg (28.0-34.0); Mean Corpuscular Volume 93.8 fL (81-99); Mean Platelet Volume 9.6 fL (7.4-10.4); Monocytes # 0.4 10^3/uL (0.2-0.9); Monocytes % 6.7 %; Neutrophils # 4.77 10^3/uL (1.8-7.7); Neutrophils % 78.3 %; Nucleated Red Blood Cells % 0 %; Platelet Count 204 10^3/cmm (130-400); Red Blood Count 4.22 10^6/uL (4.1-5.3); Red Cell Distribution Width 14.8 % (12.1-15.1); White Blood Count 6.1 10^3/uL (4.0-10.0)
[2020-07-19 08:54] LABS: Alanine Aminotransferase 10 U/L (0-33); Albumin Level 3.9 g/dL (3.5-5.2); Alkaline Phosphatase 95 IU/L (35-105); Anion Gap 11.3 (5-19); Aspartate Amino Transferase 15 U/L (0-32); Blood Urea Nitrogen 16 mg/dL (8-23); Calcium 8.9 mg/dL (8.5-10.5); Carbon Dioxide 28 mmol/L (22-29); Chloride 103 mmol/L (98-107); Ferritin 247 ng/mL (15-150); Glucose 89 mg/dL (65-115); Iron 41 ug/dL (37-145); Osmolality Calculated 287 mOsm/kg (285-295); Percent Saturation 14.5 % (20-50); Potassium 4.3 mmol/L (3.5-5.1); Sodium 138 mmol/L (136-145); Total Bilirubin 0.3 mg/dL (0.15-1.2); Total Iron Binding Capacity 281 mcg/dl; Total Protein 6.9 g/dL (6.6-8.7); Unsaturated Iron Binding 240 ug/dL (112-347)
--- NOTE | 2020-07-19 10:09 | ONC FU_ITS ---
Dr. Gavin Patient Follow-Up Note Patient: Leticia North Unit #: [id number]: 1945 Dicatated By: Naresh Gavin M.D.Date of Visit:Jul 19, 2020 Onc Med Follow-up/Prog Note Chief Complaint: Anemia. History of Present Illness: This is a 75 year-old woman with iron deficiency anemia. She has had recurrent episodes of iron deficiency anemia, presumed to be due to inadequate oral iron absorption, as multiple GI studies had failed to document any GI blood loss. Her anemia has been managed with parenteral iron replacement, as in the past she had not responded to oral iron supplements. She had typically required parenteral iron about every 6 months. On one occasion her anemia was severe enough that she did require transfusion. I had seen her initially on 06/11/2018. Her laboratory studies one week earlier had shown mild anemia with hemoglobin 11.3 g and hematocrit 35.5%. The red cell indices were borderline low. The white blood cell count was 4900 and the platelet count was 300,000. The serum iron was low at 41 mcg/dL with transferrin saturation 9.6% and the ferritin was low at 6.0 ng/mL, consistent with iron deficiency. At that time she reported that with her most recent prior Injectafer and fusion she had developed significant anxiety. After discussion with her, she opted to proceed with 2 infusions of Injectafer, but with premedication which included dexamethasone, Benadryl, and lorazepam. She tolerated the infusions well. Her medical illnesses, in addition to anemia and anxiety, include hypertension, degenerative arthritis, and glaucoma. She also has a history of thyroid nodule. She is a nonsmoker. INTERIM HISTORY: Her repeat laboratory studies in September 2018 showed normal hemoglobin at 13.0 g. However, her transferrin saturation was low at 8.9% and the ferritin was also low at 17.0 ng/mL, consistent with iron deficiency, and I did opt to give her further parenteral iron replacement with 2 additional infusions of Injectafer. At her follow-up visit in December 2018 her hemoglobin had increased to 13.1 g with transferrin saturation 21%. She was feeling significantly better. However, at her follow-up visit on 08/20/2019 she was significantly more fatigued. Her hemoglobin was back down to 11.9 g with transferrin saturation low at 16%. In addition, her methylmalonic acid level was elevated at 892 mmol/L. She was given a single infusion of Injectafer. She also started B12 replacement. I had seen her for a follow-up visit on 10/28/2019. She continued to complain of having poor energy. As she was still mildly anemic with low transferrin saturation, she was given further parenteral iron replacement with 2 infusions of Injectafer. During follow-up she remained mildly anemic. Her repeat serum iron studies on 02/15/2020 showed low transferrin saturation at 12.6% and the ferritin also had decreased to 27 ng/mL, consistent with iron deficiency. She was given 2 additional infusions of Injectafer. A repeat CBC on 02/13/2020 still showed hemoglobin low at 9.0 g but with normal transferrin saturation at 21% and with ferritin increased to 451 ng/mL. With evidence of persistent iron deficiency anemia, she was given additional parenteral iron replacement with 2 infusions of Injectafer in February 2020 and again in April 2020. At her follow-up visit on 05/23/2020 her hemoglobin was back up to 12.3 g. She continued to complain of fatigue and her transferrin saturation was still low at 15.4%. As such, I did opt to give her 1 additional infusion of Injectafer. She is seen for a follow-up visit. She still complains that she feels weak, but she is able to do light work. Her ECOG score is 1. Her other main complaint is that her blood pressure has tended to fluctuate up and down, and she is asking to have her blood pressure medication changed. She is currently taking losartan together with hydrochlorothiazide. She also indicates that she previously had poor tolerance for lisinopril. She has good appetite. She has no fever or night sweats. She says her breathing is fair. She does have some shortness of breath. She does not have cough and she does not complain of chest pain. She has no GI or complaints. She has no significant joint or bone pain. She does not complain of headache or dizziness. She was having numbness/tingling, but that has resolved. She also has been sleeping better and her anxiety also has improved. Medications: Cyanocobalamin 1 (1000 mcg/mL) Injection q 1 month, hydroCHLOROthiazide 0.5 Tablet (of 25 mg) Oral daily, losartan 0.5 Tablet (of 100 mg) Oral daily. Allergies: iron Vital Signs: Performed on Jul 19, 2020 09:34 Height - 67.00 in Weight - 221.4 lbs (HIGH) BSA - 2.11 sq.m BMI - 34.68 (HIGH) Temperature - 98.5 F Pulse - 73 /min Respiration - 16 /min BP - 158/84 mm(hg) (HIGH) O2 Sat - 96 % Pain - 0 Physical Examination: Constitutional - She looks pretty good generally, Eyes - Sclerae nonicteric. Conjunctivae clear, ENMT - No lesions noted in the oral cavity, Hematologic/Lymphatic - No cervical, clavicular, or axillary adenopathy, Respiratory - Lungs are clear with good air movement bilaterally, Cardiovascular - Heart rhythm is regular. There is no murmur, gallop, or rub noted, Abdomen - Mildly distended but soft. Liver and spleen are not enlarged. There is no abdominal mass or ascites noted and there is no inguinal adenopathy, Extremities - No edema, Neurologic - No focal neurologic deficits noted. Lab/Imaging: Test performed on Jul 19, 2020 08:21 Ferritin 247 ng/mL Iron 41 mcg/dL Sodium 138 mmol/L Iron Binding Capacity (TIBC) 281 mcg/dl Potassium 4.3 mmol/L % Iron Saturation 14.5 % Chloride 103 mmol/L CO2 28 mmol/L UIBC 240 mcg/dL Anion Gap 11.3 BUN 16 mg/dL Creatinine 1.1 mg/dL Cr Clearance (Est) 70.06 mL/min Glucose 89 mg/dL Osmolality - Calculated 287 mOsm/kg Calcium 8.9 mg/dL Protein, Total 6.9 g/dL Albumin 3.9 g/dL Globulin 3.0 g/dL Bilirubin, Total 0.3 mg/dL ALT (SGPT) 10 U/L AST (SGOT) 15 U/L Alkaline Phosphatase 95 IU/L WBC 6.1 10 3/uL RBC 4.22 10 6/uL HGB 12.3 g/dL HCT 39.6 % MCV 93.8 fL MCH 29.1 pg MCHC 31.1 g/dL RDW 14.8 % Platelet Count 204 10 3/cmm MPV 9.6 fL Neutrophils 4.77 10 3/uL Lymphocytes 0.7 10 3/uL Monocytes 0.4 10 3/uL Eosinophils 0.2 10 3/uL Basophils 0.0 10 3/uL Neutrophil % 78.3 % Lymphocyte % 11.1 % Monocyte % 6.7 % Eosinophil % 3.4 % Basophils % 0.2 % NRBC % 0 % Problem List: 1. Anemia due recurrent Iron deficiency, presumed to be due to inadequate oral iron absorption. She has been managed with parenteral iron replacement, as her anemia had been refractory to oral iron supplements. She also was found to have B12 deficiency. 2. She had developed significant anxiety following a recent infusion of Injectafer, possibly due to infusion reaction. 3. Hypertension. 4. Degenerative arthritis. 5. Glaucoma. 6. She has a history of thyroid nodule. 7. She has chronic anxiety. Problems Addressed with this Encounter and Plan: 1. Patient with recurrent episodes of iron deficiency anemia. These have not been responsive to oral iron supplementation. She had continued to have mild anemia despite multiple infusions of Injectafer. Her stool FIT was repeated and was negative. As of her followup visit on 05/23/2020 her hemoglobin was adequate at 12.3 g but she continued to complain of fatigue and her transferrin saturation was low at 15%. As such, she was given 1 additional infusion of Injectafer. She tolerated it well. At this point she continues to complain of weakness. Hemoglobin is stable at 12.3 g. Her transferrin saturation remains low at 14.5%, but her ferritin is normal at 247 ng/mL. As such, she will be followed expectantly. I will see her again in 3 months, or sooner as needed. 2. She also was found to have B12 deficiency, and she has continued her monthly B12 injections. 3. She has hypertension. She reports having fluctuating blood pressure readings on her current medication regimen with losartan and hydrochlorothiazide. She wishes to have her medication changed. As such, she will stop losartan and she will be given a prescription for metoprolol 25 mg twice daily. She will continue the hydrochlorothiazide at 25 mg daily. She will continue to monitor her blood pressure at home. Signed By: Naresh Gavin M.D. <<Signature on File>>
== END 2020-07-19 07:37 | disposition home or self-care (01) ==
LOC: ONCMED 07:38
PROVIDERS: PCP Internal Medicine; Visit Provider Internal Medicine Medical Oncology
DX: D50.8 Other iron deficiency anemias (principal)
CPT/HCPCS: 36415; 80053; 82728; 83540; 83550; 85025; 99214

== ENCOUNTER 2020-10-26 12:25 | Outpatient (CLI) | payer MEDICARE, OTHER, SELFPAY ==
[2020-10-26 13:44] LABS: Basophils % 0.4 %; Eosinophils # 0.1 10^3/uL (0.0-0.8); Eosinophils % 2.4 %; Hematocrit 36.7 % (37.0-47.0); Hemoglobin 11.7 g/dL (11.5-15.3); Lymphocytes # 1.1 10^3/uL (0.8-4.8); Lymphocytes % 23.6 %; Mean Corpuscular HGB Conc 31.9 g/dL (30.0-36.0); Mean Corpuscular Hemoglobin 30.7 pg (28.0-34.0); Mean Corpuscular Volume 96.3 fL (81-99); Mean Platelet Volume 9.7 fL (7.4-10.4); Monocytes # 0.5 10^3/uL (0.2-0.9); Monocytes % 10.4 %; Neutrophils % 62.8 %; Nucleated Red Blood Cells % 0 %; Platelet Count 228 10^3/cmm (130-400); Red Blood Count 3.81 10^6/uL (4.1-5.3); Red Cell Distribution Width 13.3 % (12.1-15.1); White Blood Count 4.6 10^3/uL (4.0-10.0)
[2020-10-26 14:06] LABS: Alanine Aminotransferase 9 U/L (0-33); Albumin Level 3.8 g/dL (3.5-5.2); Alkaline Phosphatase 89 IU/L (35-105); Anion Gap 13.3 (5-19); Aspartate Amino Transferase 14 U/L (0-32); Blood Urea Nitrogen 15 mg/dL (8-23); Calcium 8.5 mg/dL (8.5-10.5); Carbon Dioxide 27 mmol/L (22-29); Chloride 106 mmol/L (98-107); Ferritin 40 ng/mL (15-150); Glucose 106 mg/dL (65-115); Iron 41 ug/dL (37-145); Osmolality Calculated 295 mOsm/kg (285-295); Potassium 4.3 mmol/L (3.5-5.1); Sodium 142 mmol/L (136-145); Total Bilirubin 0.3 mg/dL (0.15-1.2); Total Iron Binding Capacity 314 mcg/dl; Total Protein 6.8 g/dL (6.6-8.7); Unsaturated Iron Binding 273 ug/dL (112-347)
[2020-10-26] MEDS: sodium chloride 0.9% 250 ML 75 ML IV (14:32)
[2020-10-26] MEDS: LORazepam 2 mg/mL INJ 1 mL 0.5 MG IV (14:32)
[2020-10-26] MEDS: diphenhydrAMINE 50 mg/mL SDV 1mL 25 MG IV (15:00)
[2020-10-26] MEDS: sodium chloride 0.9% (100 ml) 100 ML 500 ML (15:00)
[2020-10-26] MEDS: ferric carboxy (IVPB) 750 MG in sodium chloride 0.9% (100 ml) 100 ML 460 MG IV (15:55)
--- NOTE | 2020-10-29 13:04 | ONC FU_ITS ---
Dr. Gavin Patient Follow-Up Note Patient: Leticia North Unit #: [id number]: 1945 Dicatated By: Naresh Gavin M.D.Date of Visit:Oct 26, 2020 Onc Med Follow-up/Prog Note Chief Complaint: Anemia. History of Present Illness: This is a 75 year-old woman with iron deficiency anemia. She has had recurrent episodes of iron deficiency anemia, presumed to be due to inadequate oral iron absorption, as multiple GI studies had failed to document any GI blood loss. Her anemia has been managed with parenteral iron replacement, as in the past she had not responded to oral iron supplements. She had typically required parenteral iron about every 6 months. On one occasion her anemia was severe enough that she did require transfusion. I had seen her initially on 06/11/2018. Her laboratory studies one week earlier had shown mild anemia with hemoglobin 11.3 g and hematocrit 35.5%. The red cell indices were borderline low. The white blood cell count was 4900 and the platelet count was 300,000. The serum iron was low at 41 mcg/dL with transferrin saturation 9.6% and the ferritin was low at 6.0 ng/mL, consistent with iron deficiency. At that time she reported that with her most recent prior Injectafer and fusion she had developed significant anxiety. After discussion with her, she opted to proceed with 2 infusions of Injectafer, but with premedication which included dexamethasone, Benadryl, and lorazepam. She tolerated the infusions well. Her repeat laboratory studies in September 2018 showed normal hemoglobin at 13.0 g. However, her transferrin saturation was low at 8.9% and the ferritin was also low at 17.0 ng/mL, consistent with iron deficiency, and I did opt to give her further parenteral iron replacement with 2 additional infusions of Injectafer. At her follow-up visit in December 2018 her hemoglobin had increased to 13.1 g with transferrin saturation 21%. She was feeling significantly better. However, at her follow-up visit on 08/20/2019 she was significantly more fatigued. Her hemoglobin was back down to 11.9 g with transferrin saturation low at 16%. In addition, her methylmalonic acid level was elevated at 892 mmol/L. She was given a single infusion of Injectafer. She also started B12 replacement. I had seen her for a follow-up visit on 10/28/2019. She continued to complain of having poor energy. As she was still mildly anemic with low transferrin saturation, she was given further parenteral iron replacement with 2 infusions of Injectafer. During follow-up she remained mildly anemic. Her repeat serum iron studies on 02/15/2020 showed low transferrin saturation at 12.6% and the ferritin also had decreased to 27 ng/mL, consistent with iron deficiency. She was given 2 additional infusions of Injectafer. A repeat CBC on 02/13/2020 still showed hemoglobin low at 9.0 g but with normal transferrin saturation at 21% and with ferritin increased to 451 ng/mL. With evidence of persistent iron deficiency anemia, she was given additional parenteral iron replacement with 2 infusions of Injectafer in February 2020 and again in April 2020. At her follow-up visit on 05/23/2020 her hemoglobin was back up to 12.3 g. She continued to complain of fatigue and her transferrin saturation was still low at 15.4%. As such, I did opt to give her 1 additional infusion of Injectafer. Her medical illnesses, in addition to anemia and anxiety, include hypertension, degenerative arthritis, and glaucoma. She also has a history of thyroid nodule. She is a nonsmoker. INTERIM HISTORY: She is seen for a follow-up visit. She has been feeling pretty good generally. Her energy, overall, is better than it was. She is doing light work. ECOG score is 1. She has good appetite. She has no fever or night sweats. She has some shortness of breath. She says her breathing has been fair. She does not complain of cough and she has not been having chest pain. She has no GI or complaints. She says her bladder function actually has been better since she went off her diuretic. She has some joint pain. She describes her joints as old but okay . She does not complain of headache or dizziness. She has no focal neurologic symptoms. Medications: Cyanocobalamin 1 (1000 mcg/mL) Injection q 1 week, hydroCHLOROthiazide 0.5 Tablet (of 25 mg) Oral daily, Metoprolol Tartrate 1 (25 mg) Tablet Oral b.i.d. Allergies: iron Vital Signs: Performed on Oct 26, 2020 14:13 Height - 67.00 in Weight - 219.8 lbs (LOW) BSA - 2.10 sq.m BMI - 34.43 (HIGH) Temperature - 98.0 F (LOW) Pulse - 63 /min Respiration - 18 /min BP - 159/89 mm(hg) (HIGH) O2 Sat - 99 % Pain - 0 Physical Examination: Constitutional - She looks pretty good generally, Eyes - Sclerae nonicteric. Conjunctivae clear, ENMT - No lesions noted in the oral cavity, Hematologic/Lymphatic - No cervical, clavicular, or axillary adenopathy, Respiratory - Lungs are clear with good air movement bilaterally, Cardiovascular - Heart rhythm is regular. There is no murmur, gallop, or rub noted, Abdomen - Soft. Liver and spleen are not enlarged. There is no abdominal mass or ascites noted and there is no inguinal adenopathy, Extremities - No edema, Neurologic - No focal neurologic deficits noted. Lab/Imaging: Test performed on Oct 26, 2020 13:30 Ferritin 40 ng/mL Iron 41 mcg/dL Sodium 142 mmol/L Iron Binding Capacity (TIBC) 314 mcg/dl Potassium 4.3 mmol/L % Iron Saturation 13.0 % Chloride 106 mmol/L CO2 27 mmol/L UIBC 273 mcg/dL Anion Gap 13.3 BUN 15 mg/dL Creatinine 1.2 mg/dL Cr Clearance (Est) 63.76 mL/min Glucose 106 mg/dL Osmolality - Calculated 295 mOsm/kg Calcium 8.5 mg/dL Protein, Total 6.8 g/dL Albumin 3.8 g/dL Globulin 3.0 g/dL Bilirubin, Total 0.3 mg/dL ALT (SGPT) 9 U/L AST (SGOT) 14 U/L Alkaline Phosphatase 89 IU/L WBC 4.6 10 3/uL RBC 3.81 10 6/uL HGB 11.7 g/dL HCT 36.7 % MCV 96.3 fL MCH 30.7 pg MCHC 31.9 g/dL RDW 13.3 % Platelet Count 228 10 3/cmm MPV 9.7 fL Neutrophils 2.90 10 3/uL Lymphocytes 1.1 10 3/uL Monocytes 0.5 10 3/uL Eosinophils 0.1 10 3/uL Basophils 0.0 10 3/uL Neutrophil % 62.8 % Lymphocyte % 23.6 % Monocyte % 10.4 % Eosinophil % 2.4 % Basophils % 0.4 % NRBC % 0 % Problem List: 1. Recurrent iron deficiency anemia, presumed to be due to inadequate oral iron absorption. She has been managed with parenteral iron replacement, as her anemia had been refractory to oral iron supplements. 2. She also was found to have B12 deficiency, for which she has been on replacement therapy. 3. Hypertension. 4. Degenerative arthritis. 5. Glaucoma. 6. She has a history of thyroid nodule. 7. She has chronic anxiety. Problems Addressed with this Encounter and Plan: 1. Patient with recurrent episodes of iron deficiency anemia. These have not been responsive to oral iron supplementation. She had continued to have mild anemia despite multiple infusions of Injectafer. Her stool FIT was repeated and was negative. As of her followup visit on 05/23/2020 her hemoglobin was adequate at 12.3 g but she continued to complain of fatigue and her transferrin saturation was low at 15%. As such, she was given 1 additional infusion of Injectafer. She has been feeling pretty good generally. Her hemoglobin is just slightly low at 11.7 g, but her transferrin saturation is again low at 13% with ferritin level 40 ng/mL, consistent with iron deficiency. As such, I am going to give her 1 additional infusion of Injectafer. She will be scheduled for a follow-up visit in 3 months. 2. She also was found to have B12 deficiency, and she has continued her monthly B12 injections. Signed By: Naresh Gavin M.D. <<Signature on File>>
== END 2020-10-26 12:26 | disposition home or self-care (01) ==
LOC: ONCMED 12:28
PROVIDERS: PCP Internal Medicine; Visit Provider Internal Medicine Medical Oncology
DX: D50.9 Iron deficiency anemia, unspecified (principal); E53.8 Deficiency of other specified B group vitamins; I10 Essential (primary) hypertension; M19.90 Unspecified osteoarthritis, unspecified site; H40.9 Unspecified glaucoma; F41.9 Anxiety disorder, unspecified; Z79.899 Other long term (current) drug therapy
CPT/HCPCS: 36415; 80053; 82728; 83540; 83550; 85025; 96365; 96367; 96375; 99214; J1100; J1200; J1439; J2060; J7050

== ENCOUNTER 2021-01-14 17:38 | Inpatient (IN) | payer MEDICARE, OTHER, SELFPAY ==
[2021-01-14] VITALS (7 sets, daily range): BP systolic 118–192; BP diastolic 76–161; PULSE 60–151; RESP 16–28; TEMP 36.8–37.2; O2SAT 94–98; BMI 34.4
--- NOTE | 2021-01-14 19:21 | ECG_ITS ---
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 Measurements Intervals [place] Rate: 136 P: ID: QRS: -20 QRSD: 79 T: 49 QT: 294 QTc: 443 Interpretive Statements ATRIAL FIBRILLATION WITH RAPID VENTRICULAR RESPONSE WITH ABERRANT CONDUCTION OR VENTRICULAR PREMATURE COMPLEXES No previous ECG available for comparison Electronically Signed On 01-14-2021 22:03:24 CDT by Justice Kline M.D. [id number]
--- NOTE | 2021-01-14 19:21 | XRR_ITS ---
PROCEDURE INFORMATION: Exam: XR Chest Exam date and time: 01/14/2021 7:21 PM Age: 75 years old Clinical indication: Chest pressure; Patient HX: Chest pain x 1 week; Additional info: Cp TECHNIQUE: Imaging protocol: XR of the chest. Views: 1 view. COMPARISON: No relevant prior studies available. FINDINGS: Lungs: The lungs are hyperinflated, consistent with COPD. No consolidative pulmonary infiltrate noted. Pleural spaces: No pleural effusion. No pneumothorax. Heart/Mediastinum: Cardiomegaly is present. There is a hiatal hernia noted. Vasculature: The thoracic aorta is tortuous. Bones/joints: Degenerative spine changes are noted. XR/XR chest 1V portable [id number] IMPRESSION: 1. Cardiomegaly is present. 2. There is a hiatal hernia noted. 3. The lungs are hyperinflated, consistent with COPD. 4. No consolidative pulmonary infiltrate noted.
[2021-01-14 19:43] LABS: Basophils % 0.1 %; Eosinophils # 0.1 10^3/uL (0.0-0.8); Eosinophils % 0.8 %; Hematocrit 43.8 % (37.0-47.0); Hemoglobin 13.6 g/dL (11.5-15.3); Lymphocytes # 1.1 10^3/uL (0.8-4.8); Lymphocytes % 15.4 %; Mean Corpuscular HGB Conc 31.1 g/dL (30.0-36.0); Mean Corpuscular Hemoglobin 29.2 pg (28.0-34.0); Mean Platelet Volume 10.1 fL (7.4-10.4); Monocytes # 0.6 10^3/uL (0.2-0.9); Monocytes % 8.8 %; Neutrophils # 5.36 10^3/uL (1.8-7.7); Neutrophils % 74.6 %; Nucleated Red Blood Cells % 0 %; Platelet Count 262 10^3/cmm (130-400); Red Blood Count 4.66 10^6/uL (4.1-5.3); Red Cell Distribution Width 13.2 % (12.1-15.1); White Blood Count 7.2 10^3/uL (4.0-10.0)
[2021-01-14 20:09] LABS: Troponin(5th) Baseline 12 ng/L (0-10)
[2021-01-14] MEDS: nitroglycerin 1 gm/inch oint Pkt 1 INCH TOPICAL (20:17)
[2021-01-14] MEDS: metoprolol tartrate 1 mg/1 mL SDV 5 mL 5 MG IVP (20:17)
[2021-01-14 20:18] LABS: Alanine Aminotransferase 10 U/L (0-33); Albumin Level 4.2 g/dL (3.5-5.2); Alkaline Phosphatase 116 IU/L (35-105); Blood Urea Nitrogen 16 mg/dL (8-23); Calcium 8.9 mg/dL (8.5-10.5); Carbon Dioxide 27 mmol/L (22-29); Chloride 104 mmol/L (98-107); Creatine Phosphokinase 59 U/L (26-192); Globulin 2.9 g/dL (1.3-4.6); Glucose 105 mg/dL (65-115); NT Pro B Type Natriuretic Pept 1241 pg/mL (0-450); Osmolality Calculated 296 mOsm/kg (285-295); Sodium 142 mmol/L (136-145); Total Bilirubin 0.2 mg/dL (0.15-1.2); Total Protein 7.1 g/dL (6.6-8.7)
[2021-01-14 20:19] LABS: Anion Gap 15.3 (5-19)
[2021-01-14 20:20] LABS: Aspartate Amino Transferase 17 U/L (0-32); Potassium 4.3 mmol/L (3.5-5.1)
--- NOTE | 2021-01-14 20:27 | W.ED.CHESTPA ---
HPI - Chest Pain General: Chief Complaint: ER Hold Stated Complaint: chest pain x 1 week Time Seen by Provider: 01/14/21 19:21 History of Present Illness: HPI narrative: 75-year-old female with no history of coronary disease or heart disease otherwise. She presents with chest pain for the last week at least. She notes pain that worsens with any sort of exertion, even walking less than 75 feet. Short of breath with activity as well. She notes that her pulse rate has been fast. He has no history of atrial fib or other irregular rhythms. MD complaint: chest pain Pertinent past history: other Onset (ago): day(s) Timing of current episode: episodic and increasing Prior episodes: Yes Onset: during rest Pain location: substernal and left chest Pain radiation: none Severity: moderate Quality: aching and heaviness Relieving factors: nothing Exacerbating factors: exertion Associated symptoms: Reports dyspnea, nausea and palpitations; Deny abdominal pain, fever(s) or leg edema Treatment prior to arrival: none Review of Systems Const: Denies: fever(s) Card: Reports: chest pain and palpitations Resp: Reports: dyspnea; Denies: productive cough, non-productive cough or wheezing GI: Reports: nausea; Denies: abdominal pain Neuro: Denies: headache(s), numbness in extremities or weakness in extremities PFSH ED PFSH: Surgical History (Updated 12/07/19 @ 08:52 by Enmanuel Jauregui MD) History of carpal tunnel release of both wrists 11/19/2019, [facility] [place], Dr. Bev Jauregui, Open release of median nerve at the right wrist; left wrist 10/08/2019. History of elbow surgery horse fell on pt, caused shattering of elbow socket and it was wired. 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 History of recent travel: No Physical Exam Const: COMMON NORMALS: no acute distress GENERAL APPEARANCE: frail appearing HENMT: COMMON NORMALS: normocephalic HEAD & SCALP: normocephalic Chest: COMMONS NORMALS: normal inspection of the chest Resp: COMMON NORMALS: normal respiratory effort, No use of accessory muscles and clear to auscultation bilaterally AUSCULTATION: clear to auscultation bilaterally Cardio: COMMON NORMALS: Peripheral pulses 2+ throughout RATE: tachycardic RHYTHM: abnormal rhythm irregularly irregular PERIPHERAL PULSES: Peripheral pulses 2+ throughout GI: COMMON NORMALS: Soft to palpation INSPECTION: Yes normal to inspection PALPATION: Yes Soft to palpation and No Tenderness to palpation present (GI) Extremity: COMMON NORMALS: no pedal edema Neuro: LUKE COMA SCALE: document GCS findings Luke coma scale eye opening: Spontaneous [place] coma scale verbal response: Orientated [place] coma scale motor response: Obey commands [place] coma scale total score: 15 Course Consultations: Consultation #1: Compa Time: 00:12 Vital Signs: Vital signs: Vital Signs Temperature 98.9 F 01/14/21 19:41 Pulse Rate 77 01/15/21 01:02 Respiratory Rate 18 01/15/21 01:02 Blood Pressure 128/76 01/15/21 01:02 Pulse Oximetry 98 01/15/21 01:02 MDM - Chest Pain MDM Narrative: Medical decision making narrative: 75-year-old female who presents with chest discomfort. EKG shows rapid A. fib/a flutter. No acute ST elevation. Initial troponin was 12-second troponin was 11. She was also quite hypertensive on arrival. Nitroglycerin placed on chest. Aspirin given. Metoprolol was given for rate, and improved rate some. A diltiazem bolus of 15 mg was given, with reduction of rate to the 60s/70s, still in atrial fibrillation. A drip was ordered, but was not used, as rate has remained low. 60 mg of oral Cardizem was given instead. Currently heart rate 77, blood pressure 128/82, pulse ox 98%, respirations 17. Chest x-ray was clear. D-dimer was elevated, so CTA was ordered as a potential cause of new onset a flutter/fib. It is negative for PE, there is a small pericardial effusion present. TSH is normal. The patient will be observed. We will await a 6-hour troponin. Hospitalist agrees. Lab Data: Labs: Lab Results 08/28/21 08/28/21 08/28/21 Range/Units 19:25 19:25 19:25 WBC 7.2 (4.0-10.0) 10^3/ uL RBC 4.66 (4.1-5.3) 10^6/u L Hgb 13.6 (11.5-15.3) g/dL Hct 43.8 (37.0-47.0) % MCV 94.0 (81-99) fl MCH 29.2 (28.0-34.0) pg MCHC 31.1 (30.0-36.0) g/dL RDW 13.2 (12.1-15.1) % Plt Count 262 (130-400) 10^3/c mm MPV 10.1 (7.4-10.4) fL Neut % (Auto) 74.6 % Lymph % (Auto) 15.4 % [place] % (Auto) 8.8 % Eos % (Auto) 0.8 % Baso % (Auto) 0.1 % Neut # (Auto) 5.36 (1.8-7.7) 10^3/u L Lymph # (Auto) 1.1 (0.8-4.8) 10^3/u L [place] # (Auto) 0.6 (0.2-0.9) 10^3/u L Eos # (Auto) 0.1 (0.0-0.8) 10^3/u L Baso # (Auto) 0.0 (0.0-0.1) 10^3/u L Nucleated RBC % (a uto) 0 % Nucleated RBCs # 0.0 /100WBC D-Dimer (0-0.59) ug/mIFE U Sodium 142 (136-145) mmol/L Potassium 4.3 (3.5-5.1) mmol/L Chloride 104 (98-107) mmol/L Carbon Dioxide 27 (22-29) mmol/L Anion Gap 15.3 (5-19) BUN 16 (8-23) mg/dL Creatinine 1.2 H (0.5-0.9) mg/dL GFR Calculation Not Reportable Glucose 105 (65-115) mg/dL Calculated Osmolal ity 296 H (285-295) mOsm/k g Calcium 8.9 (8.5-10.5) mg/dL Total Bilirubin 0.2 (0.15-1.2) mg/dL AST 17 (0-32) U/L ALT 10 (0-33) U/L Alkaline Phosphata se 116 H (35-105) IU/L Creatine Kinase 59 (26-192) U/L Troponin T Baselin e 12 H (0-10) ng/L Troponin T 120 Min augustine (0-10) ng/L Delta Troponin T (0-10) ABS# NT-Pro-B Natriuret Pep 1241 H (0-450) pg/mL Total Protein 7.1 (6.6-8.7) g/dL Albumin 4.2 (3.5-5.2) g/dL Globulin 2.9 (1.3-4.6) g/dL TSH (0.27-4.20) uIU/ mL 01/14/21 01/14/21 01/14/21 Range/Units 19:25 19:25 21:40 WBC (4.0-10.0) 10^3/ uL RBC (4.1-5.3) 10^6/u L Hgb (11.5-15.3) g/dL Hct (37.0-47.0) % MCV (81-99) fl MCH (28.0-34.0) pg MCHC (30.0-36.0) g/dL RDW (12.1-15.1) % Plt Count (130-400) 10^3/c mm MPV (7.4-10.4) fL Neut % (Auto) % Lymph % (Auto) % [place] % (Auto) % Eos % (Auto) % Baso % (Auto) % Neut # (Auto) (1.8-7.7) 10^3/u L Lymph # (Auto) (0.8-4.8) 10^3/u L [place] # (Auto) (0.2-0.9) 10^3/u L Eos # (Auto) (0.0-0.8) 10^3/u L Baso # (Auto) (0.0-0.1) 10^3/u L Nucleated RBC % (a uto) % Nucleated RBCs # /100WBC D-Dimer 1.15 H (0-0.59) ug/mIFE U Sodium (136-145) mmol/L Potassium (3.5-5.1) mmol/L Chloride (98-107) mmol/L Carbon Dioxide (22-29) mmol/L Anion Gap (5-19) BUN (8-23) mg/dL Creatinine (0.5-0.9) mg/dL GFR Calculation Glucose (65-115) mg/dL Calculated Osmolal ity (285-295) mOsm/k g Calcium (8.5-10.5) mg/dL Total Bilirubin (0.15-1.2) mg/dL AST (0-32) U/L ALT (0-33) U/L Alkaline Phosphata se (35-105) IU/L Creatine Kinase (26-192) U/L Troponin T Baselin e (0-10) ng/L Troponin T 120 Min augustine 11.56 H (0-10) ng/L Delta Troponin T -0.44 L (0-10) ABS# NT-Pro-B Natriuret Pep (0-450) pg/mL Total Protein (6.6-8.7) g/dL Albumin (3.5-5.2) g/dL Globulin (1.3-4.6) g/dL TSH 1.95 (0.27-4.20) uIU/ mL Critical Care Time Critical Care Time: Critical Care Time: Yes Total Critical Care Time: 35 Attestation: This case had a high probability of a clinically significant, sudden, or life threatening deterioration of this patient's condition which required my full and direct attention, intervention and personal management. Discharge Plan Discharge Patient Disposition: Placed in Observation Clinical Impression: Atrial fibrillation with rapid ventricular response Coding Level of Care Code ED Grain Combiner for Alejandro Fwd Exam Comprehensive
[2021-01-14 20:32] LABS: D Dimer 1.15 ug/mIFEU (0-0.59)
[2021-01-14 20:43] LABS: Thyroid Stimulating Hormone 1.95 uIU/mL (0.27-4.20)
[2021-01-14] MEDS: aspirin 325 mg Tablet PO (21:15)
--- NOTE | 2021-01-14 21:21 | ECG_ITS ---
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 Measurements Intervals [place] Rate: 92 P: DE: QRS: -9 QRSD: 78 T: 15 QT: 358 QTc: 445 Interpretive Statements ATRIAL FIBRILLATION No previous ECG available for comparison Electronically Signed On 01-14-2021 22:06:30 CDT by Justice Kline M.D. [id number]
--- NOTE | 2021-01-14 21:25 | CTR_ITS ---
PROCEDURE INFORMATION: Exam: CTA Chest With Contrast Exam date and time: 01/14/2021 9:25 PM Age: 75 years old Clinical indication: Pain and abnormal findings; Abnormal diagnostic tests; Elevated d-dimer; Chest pressure; Additional info: Chest pain TECHNIQUE: Imaging protocol: Computed tomographic angiography of the chest with contrast. 3D rendering (Not supervised by radiologist): MIP and/or 3D reconstructed images were created by the technologist. Radiation optimization: All CT scans at this facility use at least one of these dose optimization techniques: automated exposure control; mA and/or kV adjustment per patient size (includes targeted exams where dose is matched to clinical indication); or iterative reconstruction. Contrast material: VISI; Contrast volume: 95 ml; Contrast route: INTRAVENOUS (IV); COMPARISON: CR XR chest 1V portable [id number] 01/14/2021 7:26 PM RADIATION DOSE METRICS: Total DLP (mGy-cm): 543.43 FINDINGS: Pulmonary arteries: Pulmonary arteries are well opacified. Pulmonary arteries are normal in caliber. No filling defects are demonstrated. No evidence of pulmonary embolism. Aorta: Ascending thoracic aorta is dilated measuring 4.2 cm in transverse diameter. Lungs: Mild atelectasis versus fibrosis in the bilateral lower lobes. A small focus of atelectasis or fibrosis is seen in the right upper lobe medially. No consolidative pulmonary infiltrate noted. Pleural spaces: No pleural effusion or pneumothorax noted. Heart: Mild cardiomegaly is noted. Small pericardial effusion, measuring up to 1.5 cm in thickness. Mediastinal space: There is a large hiatal hernia present. The stomach is seen within the hiatal hernia. There is no evidence of gastric obstruction or volvulus. Lymph nodes: Nonspecific mediastinal adenopathy. Mediastinal nodes measure up to 14 mm short axis. Liver: Multiple simple appearing hepatic cysts up to 4 cm in diameter. Bones/joints: Degenerative spine changes are noted. No fracture or other acute osseous abnormality. Soft tissues: The soft tissues appear unremarkable. CT/CT angio chest PE protcl [id number] IMPRESSION: 1. No evidence of pulmonary embolism. 2. Mild cardiomegaly is noted. Small pericardial effusion, measuring up to 1.5 cm in thickness. 3. There is a large hiatal hernia present, containing most of the stomach. No gastric obstruction noted. 4. Mild atelectasis versus fibrosis in the bilateral lower lobes. A small focus of atelectasis or fibrosis is seen in the right upper lobe medially. No consolidative pulmonary infiltrate noted. 5. Nonspecific mediastinal adenopathy. Mediastinal nodes measure up to 14 mm short axis. 6. Ascending thoracic aorta is dilated measuring 4.2 cm in transverse diameter. Recommend clinical assessment and follow-up. Radiation Dose CTDIVOL = (mGy): DLP = 543.43 (mGy-cm)
[2021-01-14] MEDS: dilTIAZem 30 mg Tablet 60 MG PO (21:36)
[2021-01-14] MEDS: iodixanol 320 mg/mL 100mL Btl IV (22:24)
[2021-01-14 22:27] LABS: Troponin 5 2HR 11.56 ng/L (0-10)
[2021-01-14 22:32] LABS: Troponin 5 2HR Delta -0.44 ABS# (0-10)
[2021-01-15] VITALS (12 sets, daily range): BP systolic 128–181; BP diastolic 76–109; PULSE 62–83; RESP 12–23; TEMP 36.6–36.8; O2SAT 93–98
--- NOTE | 2021-01-15 01:21 | ECG_ITS ---
[facility] Test Date: 2021-01-15 Pat Name: Leticia North Department: Room: Gender: Female Senior Counsel: : 1945 Requested By: Humphrey Quezada Order Number: [id number] Joshua MD: Justice Kline M.D. Measurements Intervals [place] Rate: 75 P: [place]: QRS: -11 QRSD: 78 T: 21 QT: 384 QTc: 429 Interpretive Statements ATRIAL FIBRILLATION NONSPECIFIC T-WAVE ABNORMALITY Compared to ECG 01/14/2021 21:10:52 T-wave abnormality now present Electronically Signed On 01-15-2021 19:48:37 CDT by Justice Kline M.D. [id number]
--- NOTE | 2021-01-15 02:06 | P.HP_ITS ---
Providers/Chief Complaint Admitting Physician: Nancy Chatman MD Chief Complaint: chest pain x 1 week History of Present Illness Leticia North is a 75 year old female with a past medical history of hypertension who is presenting today with chief complaint of chest pain that started approximately 1 week ago. Patient states being in her usual state of health until a week ago when she started experiencing chest pain with exertion. Describes this as a retrosternal chest pain felt as a pressure upon walking, lasting a few minutes while the exertion was ongoing. Pain was relieved with rest. Associated subjective dyspnea present. She has not noticed any pain at rest. Presented to the ER yesterday due to increased frequency of pain. 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 Review of systems positive for palpitations felt during above episodes. No lightheadedness or loss of consciousness. No past history of CAD. States that her blood pressure at home is relatively well controlled. Upon presentation to the ER she was noted to have A. fib with RVR, rate subsequently controlled after being given Cardizem. At the time of my sharmila luation patient continues to be in A. fib, heart rate ranging between 70 to 90 bpm. EKG does not show any acute ST-T wave changes. Baseline and 2-hour troponin not significantly elevated. Past medical history significant for chronic iron deficiency anemia for which patient receives IV iron infusions from time to time. Review of Systems General: Reports: 10 or more systems reviewed and unremarkable except in HPI and below Const: Denies: fever(s), chills or body aches Eyes: Denies: change in vision, blurry vision or photophobia ENMT: Reports: hoarseness; Denies: throat pain, enlarged tonsils, odynophagia or nasal congestion Card: Denies: chest pain, palpitations, irregular heart rhythm, edema, swelling of feet/ankles, lightheadedness, pre-syncope, dyspnea on exertion or orthopnea Resp: Denies: dyspnea, productive cough, non-productive cough, wheezing, stridor, pain on inspiration, change in phlegm color, hemoptysis or chest congestion GI: Denies: abdominal pain, nausea, vomiting, hematemesis, coffee ground emesis, dysphagia, heartburn, diarrhea, constipation, GI cramping, change in stool character, hematochezia or melena : Denies: flank pain, difficulty voiding, dysuria, urinary frequency, urinary urgency, urinary hesitancy or hematuria Musc: Denies: neck pain, back pain, extremity pain, joint swelling, joint warmth or deformity Neuro: Denies: headache(s), numbness in extremities, weakness in extremities, sensory changes, difficulty walking, frequent falls, dizziness, vertigo, behavioral changes, Slurred speech present or seizure-like activity Psych: Denies: anxiety, depression, suicidal ideation or homicidal ideation Endo: Denies: polyuria, polydipsia, tired all the time, cold intolerance or hot flashes Maik/Lymph: Denies: easy bruising or easy bleeding Medications/Allergies Home Medications Medication Instructions Recorded Confirmed Last Taken Type lorazepam 0.5 mg tablet 0.5 mg PO BID PRN 06/09/19 12/07/19 Unknown History hydrochlorothiazide 25 mg tablet 25 mg PO DAILY 07/30/19 12/07/19 11/19/19 Hist ory losartan 100 mg PO DAILY 10/07/19 12/07/19 11/19/19 History Allergies Allergy/AdvReac Type Severity Reaction Status Date / Time No Known Allergies Allergy Verified 12/07/19 08:30 PFSH Acute PFSH: Surgical History History of carpal tunnel release of both wrists 11/19/2019, [facility] [place], [place]. Bev Jauregui, Open release of median nerve at the right wrist; left wrist 10/08/2019. History of elbow surgery horse fell on pt, caused shattering of elbow socket and it was wired. 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 [] HEENT: Normocephalic, atraumatic, PERRLA. [] CHEST: Clear to auscultation bilaterally. [] CVS: S1, S2 normal. No murmur, rubs, gallops. Peripheral pulses palpable. [] ABDOMEN: Soft, nontender. Nondistended. Bowel sounds heard. [] NEUROVASCULAR: Awake, alert. Power 5/5 all extremities. DTR+ [] EXTREMITIES: No edema. [] Data : 01/14/21 19:25 01/14/21 19:25 Other Labs: Laboratory Results WBC 7.2 10^3/uL (4.0-10.0) 01/14/21 19:25 RBC 4.66 10^6/uL (4.1-5.3) 01/14/21 19:25 Hgb 13.6 g/dL (11.5-15.3) 01/14/21 19:25 Hct 43.8 % (37.0-47.0) 01/14/21 19:25 MCV 94.0 fl (81-99) 01/14/21 19:25 MCH 29.2 pg (28.0-34.0) 01/14/21 19:25 MCHC 31.1 g/dL (30.0-36.0) 01/14/21 19:25 RDW 13.2 % (12.1-15.1) 01/14/21 19:25 Plt Count 262 10^3/cmm (130-400) 01/14/21 19:25 MPV 10.1 fL (7.4-10.4) 01/14/21 19:25 Neut % (Auto) 74.6 % 01/14/21 19:25 Lymph % (Auto) 15.4 % 01/14/21 19:25 [place] % (Auto) 8.8 % 01/14/21 19:25 Eos % (Auto) 0.8 % 01/14/21 19:25 Baso % (Auto) 0.1 % 01/14/21 19:25 Neut # (Auto) 5.36 10^3/uL (1.8-7.7) 01/14/21 19:25 Lymph # (Auto) 1.1 10^3/uL (0.8-4.8) 01/14/21 19:25 [place] # (Auto) 0.6 10^3/uL (0.2-0.9) 01/14/21 19:25 Eos # (Auto) 0.1 10^3/uL (0.0-0.8) 01/14/21 19:25 Baso # (Auto) 0.0 10^3/uL (0.0-0.1) 01/14/21 19:25 Nucleated RBC % (auto) 0 % 01/14/21 19:25 Nucleated RBCs # 0.0 /100WBC 01/14/21 19:25 D-Dimer 1.15 ug/mIFEU (0-0.59) H 01/14/21 19:25 Sodium 142 mmol/L (136-145) 01/14/21 19:25 Potassium 4.3 mmol/L (3.5-5.1) 01/14/21 19:25 Chloride 104 mmol/L (98-107) 01/14/21 19:25 Carbon Dioxide 27 mmol/L (22-29) 01/14/21 19:25 Anion Gap 15.3 (5-19) 01/14/21 19:25 BUN 16 mg/dL (8-23) 01/14/21 19:25 Creatinine 1.2 mg/dL (0.5-0.9) H 01/14/21 19:25 GFR Calculation Not Reportable 01/14/21 19:25 Glucose 105 mg/dL (65-115) 01/14/21 19:25 Calculated Osmolality 296 mOsm/kg (285-295) H 01/14/21 19:25 Calcium 8.9 mg/dL (8.5-10.5) 01/14/21 19:25 Total Bilirubin 0.2 mg/dL (0.15-1.2) 01/14/21 19:25 AST 17 U/L (0-32) 01/14/21 19:25 ALT 10 U/L (0-33) 01/14/21 19:25 Alkaline Phosphatase 116 IU/L (35-105) H 01/14/21 19:25 Creatine Kinase 59 U/L (26-192) 01/14/21 19:25 Troponin T Baseline 12 ng/L (0-10) H 01/14/21 19:25 Troponin T 120 Minute 11.56 ng/L (0-10) H 01/14/21 21:40 Delta Troponin T -0.44 ABS# (0-10) L 01/14/21 21:40 Troponin T Hi Sens 6Hr 9.96 ng/L (0-10) 01/15/21 01:39 Troponin T Hi Sens 6Hr Delta -2.04 ng/L (0-12) L 01/15/21 01:39 NT-Pro-B Natriuret Pep 1241 pg/mL (0-450) H 01/14/21 19:25 Total Protein 7.1 g/dL (6.6-8.7) 01/14/21 19:25 Albumin 4.2 g/dL (3.5-5.2) 01/14/21 19:25 Globulin 2.9 g/dL (1.3-4.6) 01/14/21 19:25 TSH 1.95 uIU/mL (0.27-4.20) 01/14/21 19:25 Impressions Chest X-Ray 01/14/21 19:21 IMPRESSION: 1. Cardiomegaly is present. 2. There is a hiatal hernia noted. 3. The lungs are hyperinflated, consistent with COPD. 4. No consolidative pulmonary infiltrate noted. Chest CTA 01/14/21 21:25 IMPRESSION: 1. No evidence of pulmonary embolism. 2. Mild cardiomegaly is noted. Small pericardial effusion, measuring up to 1.5 cm in thickness. 3. There is a large hiatal hernia present, containing most of the stomach. No gastric obstruction noted. 4. Mild atelectasis versus fibrosis in the bilateral lower lobes. A small focus of atelectasis or fibrosis is seen in the right upper lobe medially. No consolidative pulmonary infiltrate noted. 5. Nonspecific mediastinal adenopathy. Mediastinal nodes measure up to 14 mm short axis. 6. Ascending thoracic aorta is dilated measuring 4.2 cm in transverse diameter. Recommend clinical assessment and follow-up. Radiation Dose CTDIVOL = (mGy): DLP = 543.43 (mGy-cm) A&P Assessment and plan (1) Atrial fibrillation with rapid ventricular response: Status: Acute (2) Chest pain: Status: Acute Qualifiers: Chest pain type: unspecified Qualified Code(s): R07.9 - Chest pain, unspecified Additional A&P Information Patient presenting today with chief complaints of exertional chest pain going on over the past week and newly discovered atrial fibrillation A. fib with RVR of unknown chronicity. Heart rate is currently well controlled after being given Cardizem in the ER. Started on metoprolol 12.5 mg p.o. twice daily thereafter. Uptitrate as needed. Currently heart rate is well controlled between 70 to 90 bpm, continues to be in A. fib [id number] score currently at 4, will likely need consideration of starting anticoagulation prior to discharge. Patient complaining also of exertional chest pain retrosternal. EKG without acute ST-T wave changes, troponin series not significant at 2 hours. Pending 6- hour delta. While with this may be related to episodes of A. fib RVR and resulting palpitations and chest pain, cannot exclude the possibility of angina. Depending on clinical course may need stress test additionally. Pain is currently controlled after Nitropaste placed. Upon arrival at emergency room blood pressure noted to be 196/160, at the time of my assessment this is improved to 130/72 mmHg. Attestations Medical Necessity Statement*: Observation admission in [facility] for above defined care Coding Level of Care Code Acute Orchestra Leader for [facility] Fwd Diagnoses Atrial fibrillation with rapid ventricular response I48.91 Chest pain R07.9 Chest pain type: unspecified
[2021-01-15 02:14] LABS: Troponin 5 6HR 9.96 ng/L (0-10)
[2021-01-15 02:18] LABS: Troponin 5 6HR Delta -2.04 ng/L (0-12)
--- NOTE | 2021-01-15 02:22 | USCV_ITS ---
Leticia North Age: 75 Gender: F : 1945 Exam Date: 01/15/2021 07:32 Ordering Phys: Nancy Chatman MD Technologist: Shanda Darby [place] [facility] [place]ication: NEW ON SET A FIB BP: 128 / 96 HR: 60 Rhythm: Sinus Technical Quality: Adequate MEASUREMENTS (Male / Female) Normal Values 2D ECHO LV Diastolic Diameter PLAX 4.6 cm 4.2 - 5.9 / 3.9 - 5.3 cm LV Systolic Diameter PLAX 3.1 cm LV Chamber Size 4.0 cm IVS Diastolic Thickness 1.5 cm 0.6 - 1.0 / 0.6 - 0.9 cm IVS Systolic Thickness 1.5 cm LVPW Diastolic Thickness 1.3 cm 0.6 - 1.0 / 0.6 - 0.9 cm LVPW Systolic Thickness 2.0 cm RV Chamber Size 3.0 cm LVOT Diameter 2.0 cm LV Ejection Fraction 2D Teich 60.2 % LV Ejection Fraction MOD 2C 55.1 % LV Ejection Fraction 2C AL 55.0 % LA Diameter 3.9 cm LA Width 2.9 cm LA Height 4.0 cm RA Width 2.7 cm RA Height 5.1 cm Aorta at Sinotubular Diameter 2.6 cm M-MODE LV Diastolic Diameter MM 5.1 cm 4.2 - 5.9 / 3.9 - 5.3 cm LV Systolic Diameter MM 3.7 cm LV Ejection Fraction MM Teich 54.2 % IVS Diastolic Thickness MM 1.6 cm 0.6 - 1.0 / 0.6 - 0.9 cm IVS Systolic Thickness MM 1.7 cm LVPW Diastolic Thickness MM 1.4 cm 0.6 - 1.0 / 0.6 - 0.9 cm LVPW Systolic Thickness MM 2.2 cm RV Diastolic Diameter MM 1.1 cm Aortic Annulus Diameter 2.8 cm LA Ao Ratio MM 1.6 MV E Point Septal Separation 0.7 cm DOPPLER AV Peak Velocity 136.0 cm/s LVOT Peak Velocity 88.0 cm/s AV Area Cont Eq vti 2.3 cm squared AV Area Cont Eq pk 2.1 cm squared MV Area PHT 3.9 cm squared Mitral E to A Ratio 2.2 MV E' Velocity 46.0 cm/s Mitral E to MV E' Ratio 12.9 Mitral E to LV E' Lateral Ratio 13.1 Mitral E to LV E' Septal Ratio 12.9 TR Peak Velocity 245.9 cm/s TR Peak Gradient 24.2 mmHg TR Mean Velocity 195.1 cm/s TR Mean Gradient 16.6 mmHg TR Velocity Time Integral 84.6 cm TV Peak E Velocity 73.0 cm/s Right Atrial Pressure 3.0 mmHg Pulmonary Artery Systolic Pressu 27.2 mmHg PV Peak Velocity 64.0 cm/s RV Acceleration Time 0.1 s RV Ejection Time 0.3 s RV AcT/ET 0.4 FINDINGS Left Ventricle Normal left ventricular size. LV systolic function is borderline low with EF of 45-50%. Mild global hypokinesis. Diastolic function is indeterminate because of atrial fibrillation. Right Ventricle The right ventricle is normal in size and function. Right Atrium The right atrium is normal in size. Left Atrium The left atrium is dilated Mitral Valve Structurally normal mitral valve without significant stenosis or prolapse. There is mild mitral regurgitation. Aortic Valve Structurally normal aortic valve without significant sclerosis or stenosis. There is mild to moderate aortic regurgitation. Tricuspid Valve Structurally normal tricuspid valve without significant stenosis . Mild tricuspid regurgitation. Insufficient TR jet to calculate RVSP Pulmonic Valve Structurally normal pulmonic valve without significant stenosis. There is no pulmonic regurgitation. Pericardium Normal pericardium without effusion. Aorta Normal ascending aorta dimension. CONCLUSIONS LV systolic function is borderline low with EF of 45 to 50%. Diastolic function is indeterminate because of atrial fibrillation. Mild mitral regurgitation seen. Left atrium with some mildly dilated. Mild to moderate aortic regurgitation. Mild tricuspid regurgitation. No comparison studies are available. Justice Kline MD (Electronically Signed) Final Date: 15 January 2021 18:36 S
[2021-01-15] MEDS: metoprolol tartrate 25 mg Tablet 12.5 MG PO ×3 (05:53→20:53)
--- NOTE | 2021-01-15 06:50 | PC.NURSE ---
report to Trinity ZUNIGA
[2021-01-15] MEDS: losartan 50 mg Tablet 100 MG PO (09:14)
[2021-01-15] MEDS: pantoprazole DR 40 mg Tablet PO (09:14)
[2021-01-15] MEDS: enoxaparin 40 mg/0.4 mL Syringe SUBCUT (09:14)
--- NOTE | 2021-01-15 09:47 | P.PN_ITS ---
Subjective Subjective: Interval history: She is overall feeling better currently. Had an episode of chest pain previously with tachycardia, but this so far has resolved. Denies past history of A. fib. Discussed with her regarding risk of stroke, options for reduction risk of stroke, different options for anticoagulation as well, risk of bleeding. She denies any history of bleeding. She does it appear have history of anemia, although Hemoccult reportedly negative. She is agreeable with starting anticoagulation with DOAC. Agreeable to stay in the hospital to reassess hemoglobin given history of anemia to make sure there is no significant decline, also with additional plan with assessment by stress testing tomorrow morning to assess for possible CAD. She understands to let us know in case there is any changes in her symptoms including chest pain, or if she noticed any bleeding. Discussed with her also incidental finding of small pericardial effusion. She denies any recent fever or chills or viral illness. Denies any positional changes in her chest pain. Echocardiogram is pending. She is aware of the large hiatal hernia. Vitals/I&O/Wt Last Vital Signs Temp 98.0 F 01/15/21 02:48 Pulse 62 01/15/21 07:46 Resp 12 01/15/21 07:46 BP 148/80 01/15/21 09:14 Pulse Ox 98 01/15/21 07:46 Weight last 48 hrs Weight 99.79 kg Physical Exam Narrative: EXAM NARRATIVE: at bedside. Const: COMMON NORMALS: no acute distress and patient oriented x3 HENMT: COMMON NORMALS: oropharynx normal Neck/C-Spine: COMMON NORMALS: no JVD Resp: COMMON NORMALS: normal respiratory effort and clear to auscultation bilaterally AUSCULTATION: clear to auscultation bilaterally Cardio: COMMON NORMALS: no JVD, regular rhythm, S1 normal heart sound present, S2 normal heart sound present and No murmurs present (Cardio) RHYTHM: regular rhythm HEART SOUNDS: S1 normal heart sound present and S2 normal heart sound present GI: COMMON NORMALS: Normal to inspection, nondistended, normoactive bowel sounds present, Soft to palpation and non-tender PALPATION: Yes Soft to palpation Extremity: COMMON NORMALS: no joint enlargement and no pedal edema Neuro: COMMON NORMALS: patient oriented x3 and moves all extremities Skin: COMMON NORMALS: no rashes or lesions noted GENERAL SKIN EXAM: no rashes or lesions noted Data : 01/14/21 19:25 01/14/21 19:25 A&P Assessment and plan (1) Atrial fibrillation with rapid ventricular response: Appears converted to sinus rhythm. Weaned off Cardizem drip. Continuing on oral metoprolol. As per discussion of risks and benefits of anticoagulation, with risk of stroke, risk of bleeding, also with known anemia, iron deficiency. Repeat Hemoccult test reported negative. While pending additional assessment in the hospital she is agreeable to initiate anticoagulation, reassess hemoglobin. TSH normal. Potassium normal. Requested magnesium. Pending additional assessment by TTE. Discussed with her and her additional assessment for CAD as possible underlying/perpetuating cause of the new A. fib. They are agreeable additional assessment with stress testing in the morning. Status: Acute (2) Chest pain: Currently chest pain-free. As noted above with new atrial fibrillation, episode of chest pain, additional assessment plan for tomorrow with stress testing. Status: Acute Qualifiers: Chest pain type: unspecified Qualified Code(s): R07.9 - Chest pain, unspecified Additional A&P Information Episode of hypotension on presentation: Continue losartan, HCTZ, also started on metoprolol. Weaned off Cardizem drip. Attestations Medical Necessity Statement*: Admission of over 2 midnights is needed for assessment of management of new atrial fibrillation, episode of chest pain, additional assessment for possible underlying coronary disease, as well as initiation of anticoagulation due to stroke risk in the setting of present anemia, following with hematology due to persistent iron deficiency needing reassessment to exclude worsening with anticoagulation. 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
[2021-01-15 11:00] LABS: Magnesium 2.1 mg/dL (1.7-2.3)
--- NOTE | 2021-01-15 13:58 | PC.NURSE ---
Received patient via wheelchair from ER. Pt is alert and oriented. VS are stable pt oriented to room and call navarro.
--- NOTE | 2021-01-15 18:35 | PC.NURSE ---
Notified physician of elevated blood pressure, no new orders received.
--- NOTE | 2021-01-15 19:22 | PC.NURSE ---
Shift Note Frequent safety and comfort rounds continue. Orders and/or nursing care completed as indicated. Patient monitored for response to intervention and treatment(s). Education provided includes treatment plan and medications. Patient and/or uniforms sales representative verbalizes understanding. Will continue to monitor.
[2021-01-15] MEDS: apixaban 5 mg Tablet PO (20:53)
[2021-01-16] VITALS (32 sets, daily range): BP systolic 118–183; BP diastolic 75–102; PULSE 56–84; RESP 12–35; TEMP 36.6–36.8; O2SAT 93–97
[2021-01-16 04:32] LABS: Basophils % 0.6 %; Eosinophils # 0.1 10^3/uL (0.0-0.8); Eosinophils % 2.5 %; Hematocrit 37.7 % (37.0-47.0); Hemoglobin 11.6 g/dL (11.5-15.3); Lymphocytes # 0.8 10^3/uL (0.8-4.8); Lymphocytes % 22.9 %; Mean Corpuscular HGB Conc 30.8 g/dL (30.0-36.0); Mean Corpuscular Hemoglobin 29.3 pg (28.0-34.0); Mean Corpuscular Volume 95.2 fl (81-99); Mean Platelet Volume 10.2 fL (7.4-10.4); Monocytes # 0.5 10^3/uL (0.2-0.9); Monocytes % 12.6 %; Neutrophils # 2.19 10^3/uL (1.8-7.7); Neutrophils % 61.1 %; Nucleated Red Blood Cells % 0 %; Platelet Count 197 10^3/cmm (130-400); Red Blood Count 3.96 10^6/uL (4.1-5.3); Red Cell Distribution Width 13.2 % (12.1-15.1); White Blood Count 3.6 10^3/uL (4.0-10.0)
[2021-01-16 04:57] LABS: Alanine Aminotransferase 7 U/L (0-33); Albumin Level 3.4 g/dL (3.5-5.2); Alkaline Phosphatase 93 IU/L (35-105); Anion Gap 10.9 (5-19); Aspartate Amino Transferase 12 U/L (0-32); Blood Urea Nitrogen 14 mg/dL (8-23); Calcium 8.7 mg/dL (8.5-10.5); Carbon Dioxide 27 mmol/L (22-29); Chloride 105 mmol/L (98-107); Globulin 2.9 g/dL (1.3-4.6); Glucose 84 mg/dL (65-115); Osmolality Calculated 288 mOsm/kg (285-295); Potassium 3.9 mmol/L (3.5-5.1); Sodium 139 mmol/L (136-145); Total Bilirubin 0.5 mg/dL (0.15-1.2); Total Protein 6.3 g/dL (6.6-8.7)
[2021-01-16] MEDS: LORazepam 0.5 mg Tablet PO (06:32)
--- NOTE | 2021-01-16 07:20 | PC.NURSE ---
pt left floor for stress test
[2021-01-16] MEDS: regadenoson 0.4 Mg/5 ml Syringe IVP (07:39)
--- NOTE | 2021-01-16 08:00 | ECG_ITS ---
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 The perfusion scan will be documented separately. DATA: Baseline heart rate was 67 beats per minute. Baseline blood pressure was 147/103 millimeters of mercury. Target heart rate was 145. Maximum heart rate achieved was 99. which was 68 % of the predicted target heart rate. Maximum blood pressure was 162/103 millimeters of mercury. The reason for ending the test was completion of the protocol. The patient did not experience any symptoms. ELECTROCARDIOGRAM: BASELINE: Sinus tachycardia. 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 No arrhythmia noted. CONCLUSION: Please note due to baseline abnormality of the EKG specificity and sensitivity of the EKG portion of LexiScan MIBI stress test will be low 1. EKG not suggestive of ischemia 2. Lexiscan injection unremarkable. 3. Perfusion scan will be documented separately. Electronically Signed On 01-17-2021 21:23:36 CDT by DONNA CANNON [email or web address]
--- NOTE | 2021-01-16 08:26 | PC.CHAP ---
Pastoral Care Encounter/Spiritual Assessment Type of Contact [] Declined sales project administrator visit [] Patient/Family/Request visit [] Outpatient visit [] Follow-up visit [] Physician referral [] Code/Alert [x] Routine visit [] Staff referral [] Actively dying [] Patient sleeping [] Family support [] [x] Out of room [] Palliative care [] [] Receiving care in room [] Pre-surgical visit [] Trauma [] Long length of stay [] ICU visit [x] Other: x-rays Relational/Emotional Strength [] Patient feels connected with others/family/visitors/staff [] Distress [] Loneliness/isolation [] Abandonment Spirituality of Patient [] Person of Barb [] Attends Yarsanism of their Barb [] Believes in Prayer [] Reads Bible or Denominational materials [] There are Spiritual issues to be addressed Seamer Operator Interventions [x] Prayer [] Active listening [] Non-anxious presence [] Spiritual/emotional support [] Crisis/trauma care [] Spiritual counseling [] Bereavement support [] Provided bereavement packet [] Provided Bible/devotional materials [] Provided toy/stuffed animal, coloring book to patient or family member [] Provided Communion [] Anointing/[place] [] Salvation [x] Completed spiritual assessment [] Other: Impact on Illness or Injury [] Angry [] Fearful [] Anxious [] Often cries [] Exhaustion [] Unable to work [] Unable to attend latter day [] Unable to walk/stand [] Unable to read [] Unable to drive [] Unable to eat/drink [] Unable to sleep [] Unable to be with family [] Patient intubated [] Other: Summary Time spent with patient
[2021-01-16] MEDS: losartan 50 mg Tablet 100 MG PO (09:15)
[2021-01-16] MEDS: hydroCHLOROthiazide 25 mg Tablet PO (09:15)
[2021-01-16] MEDS: pantoprazole DR 40 mg Tablet PO (09:19)
[2021-01-16] MEDS: metoprolol tartrate 25 mg Tablet 12.5 MG PO ×2 (09:19→20:51)
--- NOTE | 2021-01-16 09:45 | NMCV_ITS ---
NM rupesh perf SPECT r/s* [id number] Leticia North Age: 75 Gender: F : 1945 Exam Date: 01/16/2021 06:56 Ordering Phys: Jerald Grant MD Technologist: GERBER Dave Exam Location: [facility] Indications: CHEST PAIN X 1 WEEK STRESS TEST Please see separate stress test report in [facility] for full findings IMAGE PROTOCOL Rest/Stress 1 Lexiscan Day Radiopharmaceutical Dose (mCi) Administration Site Administered by Rest: Tc-99m 10.9 IV GERBER Martínez Sestamibi Stress:Tc-99m 32.8 IV GERBER Martínez Sestamibi Rest: 16-Jan-2021 60 Discovery 630 Stress: 16-Jan-2021 30 Discovery 630 0.4mg Lexiscan. Images obtained in supine and prone position. SPECT RESULTS Technical Quality: Excellent Raw Data Analysis: Normal Image Corrections: No attenuation or motion correction applied Summed Stress Score: 7 Summed Rest Score: 5 Summed Difference Score: 2 PERFUSION FINDINGS Small area of fixed perfusion defect surrounded by medium-sized area of patchy reversibility noted in mid to distal anterior wall suggestive of old myocardial infarction surrounded by medium-sized area of mild maki-infarct ischemia in the LAD territory. Small area of distal fixed perfusion defect noted in inferoseptal wall surrounded by small area of mild reversibility suggestive of lesion in the RCA territory FUNCTIONAL RESULTS (calculated via Gated SPECT) Stress Image LV EF (%): 64 Stress EDV (mL):96 TID: 1 Stress ESV (mL):35 Rest Image LV EF (%): 84 FUNCTIONAL FINDINGS: Mid to distal inferior inferoseptal wall hypokinesis. IMPRESSIONS Small area of fixed perfusion defect surrounded by medium-sized area of patchy reversibility noted in mid to distal anterior wall suggestive of old myocardial infarction surrounded by medium-sized area of mild maki-infarct ischemia in the LAD territory. Small area of distal fixed perfusion defect noted in inferoseptal wall surrounded by small area of mild reversibility suggestive of lesion in the RCA territory. Aziza Godinez MD (Electronically Signed) Final Date: 16 January 2021 12:43 S
--- NOTE | 2021-01-16 09:49 | CT_ITS ---
WS: [id number] CT HEAD NONCONTRAST HISTORY: right arm weakness TECHNIQUE: Contiguous axial imaging performed through the brain in 2.5 mm imaging. Bone and soft tiss ue windows. Sagittal and coronal reformats reviewed. All CT scans at [facility] use at ast one of these dose optimization techniques: automated exposure control; mA and/or kV adjustment pe r patient size (includes targeted exams where dose is matched to clinical indication); or iterative r econstruction. DLP: 1555.54 mGy.cm COMPARISON: None available. No acute intracranial hemorrhage, midline shift or mass effect. Mild bilateral atrophy. There is also moderate chronic microvascular ischemic disease. No focal area of sulcal effacement. Small lacunar infarct along the LEFT external capsule. Ventricles: Normal size with no hydrocephalus. No inferior displacement of cerebellar tonsils. Paranasal sinuses: As visualized are clear. Mastoid air cells: Well pneumatized. Calvarium and scalp: Skull is intact with no soft tissue edema or swelling. CT/CT head wo con* [id number] IMPRESSION: 1. No acute intracranial hemorrhage or edema. 2. Mild atrophy and chronic ischemic disease.
[2021-01-16] MEDS: apixaban 5 mg Tablet PO (09:55)
--- NOTE | 2021-01-16 10:53 | PC.NURSE ---
Patient had strange occurrence this morning. Patient states that she was reaching for the bathroom door handle with her right hand and suddenly lost control of her arm. She said that her arm flew up in the air and then dropped and she was unable to move arm. Stroke scale was performed and was negative. pt transcribing operator head are equal and face is equal and symmetrical. Stat CT scan was performed. Will continue to monitor patient.
[2021-01-16 13:46] LABS: Chol HDL Ratio 3.12 mg/dL (0.0-4.40); Cholesterol 131 mg/dL (0-200); HDL Cholesterol 42 mg/dL (60-100); LDL Cholesterol Calculated 74 mg/dL (50-129); LDL HDL Ratio 1.76 RATIO (0.00-3.22); Triglycerides 73 mg/dL (0-150)
[2021-01-16 13:50] LABS: Estmated Average Glucose 97
[2021-01-16] MEDS: aspirin 81 mg Chew Tablet 162 MG PO (14:08)
--- NOTE | 2021-01-16 18:32 | PM.CONSULT ---
Providers/Reason For Consult Consulting Physician/Specialty*: Cardiology Reason for Consult*: Worsening of chest pain along with shortness of breath/abnormal stress test Requesting Physician: Dr. Wilhelm Attending Physician: Jerald Grant History of Present Illness History of Present Illness Leticia North is a 75 year old female past medical history significant for hypertension hyperlipidemia chronic anemia for which she takes iron infusion and transfusion every 6 months hemoglobin remains around 12 to 13 mg/dL denies any bleeding per rectum struggling from worsening of chest pain or shortness of breath for the last few weeks until it gotten worse in the last few days was admitted with Ashley joyner with RVR and chest pain. She converted to sinus rhythm after calcium channel selena. Stress test was performed which showed medium-sized area of patchy decreased tracer uptake in anterior and inferior meredith showing reversibility suggestive of ischemia. It is the reason we have been asked to assist in her care. I have detailed discussion with the patient and her daughter by bedside. She said that atrial fibrillation happened only for a few hours however her main complaint of chest pain along with shortness of breath and fatigue which is going on for many weeks. Upon mild to moderate exertion chest pain comes back and she has to sit down to get over it. She has not tried nitroglycerin. She denies any bleeding per rectum or hematemesis. She says that she can go months without getting transfusion. She understand the risk for bleeding infection hematoma stroke urgent emergent bypass surgery vascular surgery stroke and worse case scenario in case of left heart cath/PCI. She would like to proceed with it. Meds/Allergies Home Medications and Allergies Home Medications Medication Instructions Recorded Confirmed Last Taken Type metoprolol tartrate 25 mg PO DAILY MDD see pharmacy 01/15/21 01/15/21 01/14/21 History comment Allergies Allergy/AdvReac Type Severity Reaction Status Date / Time No Known Allergies Allergy Verified 12/07/19 08:30 Current Medications Current Medications Generic Name Dose Route Start Last Admin Trade Name Pedro PRN Reason Stop Dose Admin Aspirin 162 mg 01/16/21 12:55 01/16/21 14:08 Aspirin 81 Mg Chew Tablet PO 162 mg DAILY SILVESTRE Administration Hydrochlorothiazide 25 mg 01/15/21 09:00 01/16/21 09:15 Hydrochlorothiazide 25 Mg Tablet PO 25 mg DAILY SILVESTRE Administration Lorazepam 0.5 mg 01/15/21 02:42 01/16/21 06:32 Lorazepam 0.5 Mg Tablet PO 0.5 mg BID PRN Administration Anxiety Losartan Potassium 100 mg 01/15/21 09:00 01/16/21 09:15 Losartan 50 Mg Tablet PO 100 mg DAILY SILVESTRE Administration Metoprolol Tartrate 12.5 mg 01/15/21 02:35 01/16/21 09:19 Metoprolol Tartrate 25 Mg Tablet PO 12.5 mg BID@0900,2100 SILVESTRE Administration Pantoprazole Sodium 40 mg 01/15/21 09:00 01/16/21 09:[address] 40 Mg Tablet PO 40 mg DAILY SILVESTRE Administration PFSH Acute PFSH: Surgical History History of carpal tunnel release of both wrists 11/19/2019, [facility] [place], Dr. Bev Jauregui, Open release of median nerve at the right wrist; left wrist 10/08/2019. History of elbow surgery horse fell on pt, caused shattering of elbow socket and it was wired. 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 NECK: No jugular vein distension. HEENT: No cyanosis. No icterus. No pallor. HEART: Regular S1 and S2. No murmur, rub or gallop. LUNGS: Clear to auscultate bilaterally. ABDOMEN: Soft, nontender and nondistended. Positive bowel sounds. No guarding, rebound or tenderness. CENTRAL NERVOUS SYSTEM: Grossly nonfocal. EXTREMITIES: Lower extremities without edema bilaterally. A&P Assessment and plan (1) Chest pain: Worsening of chest along with shortness of breath in a patient with lifestyle limiting angina and positive stress test in both RCA and LAD territory may need further risk stratification and exploration with left heart cath. She understand all risk benefit and already for the procedure she would like to proceed with it. I will load her with 300 mg of Plavix. Since she has history of chronic anemia but denies any bleeding we may will continue Plavix and Eliquis together since she has new onset of A. fib. Status: Acute Qualifiers: Chest pain type: unspecified Qualified Code(s): R07.9 - Chest pain, unspecified (2) Atrial fibrillation with rapid ventricular response: Appear to be in sinus rhythm continue current regimen. Hold oral anticoagulation we can switch patient to Lovenox which can be held in the morning. Status: Acute (3) Essential hypertension: Well-controlled continue medicine. 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
[2021-01-16] MEDS: clopidogrel 300 mg Tablet PO (20:51)
[2021-01-16] MEDS: atorvastatin 40 mg Tablet PO (20:52)
[2021-01-16] MEDS: enoxaparin 100 mg/mL Syringe SUBCUT (20:52)
--- NOTE | 2021-01-16 21:24 | PM.PN ---
Subjective Subjective: Interval history: This morning after stress test with noted transient weakness of the right arm, some transient numbness. Numbness had resolved. Weakness improved, but right arm feeling clumsy. She otherwise does not have weakness or numbness anywhere else where. No facial droop. No trouble speaking. No vision changes. Discussed with her and her [id number]. Consideration may need to be given to possible TIA and/or CVA given recent new atrial fibrillation. She was agreeable to start assessment by CT of the head. No bleeding noted. Agreeable to starting aspirin, statin. Additional assessment possible CVA. Assessment of risk factors. PT, OT. Subsequently additionally with noted abnormality on stress testing. She has not had persistent chest pain, or, with symptoms before admission, as well as with new onset atrial fibrillation, again concern noted for possible coronary artery, possibly peripheral vascular disease. She is agreeable to additional consultation with cardiology. Vitals/I&O/Wt Last Vital Signs Temp 98.3 F 01/16/21 19:08 Pulse 64 01/16/21 19:08 Resp 18 01/16/21 19:08 BP 166/102 01/16/21 19:08 Pulse Ox 95 01/16/21 19:08 01/16/21 01/16/21 01/16/21 06:59 14:59 22:59 Intake Total 50 / 50 236 / 236 236 / 472 Balance 50 / 50 236 / 236 236 / 472 Physical Exam Narrative: EXAM NARRATIVE: [id number] at bedside. Const: COMMON NORMALS: no acute distress, patient oriented x3 and alert GENERAL APPEARANCE: cooperative ORIENTATION/CONSCIOUSNESS: Yes awake HENMT: COMMON NORMALS: oropharynx normal Neck/C-Spine: COMMON NORMALS: no JVD Resp: COMMON NORMALS: normal respiratory effort and clear to auscultation bilaterally AUSCULTATION: clear to auscultation bilaterally Cardio: COMMON NORMALS: no JVD, regular rhythm, S1 normal heart sound present, S2 normal heart sound present and No murmurs present (Cardio) RHYTHM: regular rhythm HEART SOUNDS: S1 normal heart sound present and S2 normal heart sound present GI: COMMON NORMALS: Normal to inspection, nondistended, normoactive bowel sounds present, Soft to palpation and non-tender PALPATION: Yes Soft to palpation Extremity: COMMON NORMALS: no joint enlargement and no pedal edema OTHER: Somewhat clumsy right upper extremity, but improving through the day. Minute dysmetria noted on FNF. Otherwise power symmetrical. Sensation symmetrical. No sensory or visual neglect. Good radial pulse. Right extremity and hand. Well-perfused. Neuro: COMMON NORMALS: patient oriented x3 and moves all extremities SENSORIUM/ORIENTATION: Yes alert MOTOR EXAM: Pronator motor function not present OTHER: No trouble tracking. No visual field deficit. Skin: COMMON NORMALS: no rashes or lesions noted GENERAL SKIN EXAM: no rashes or lesions noted Data : 01/16/21 03:33 01/16/21 03:33 A&P Assessment and plan (1) Abnormal stress test: Discussed with her and her [id number] regarding abnormal stress test findings. Also noted borderline low ejection fraction, 45-50%. Diastolic function could not be determined. Noted mild MVR. LA with mild dilation. Mild to moderate AVR. Mild TVR. As below she is started on aspirin, statin. He is already on beta-selena. With abnormal stress test were additionally requested cardiology consultation. Appreciate assessment and recommendations. Given abnormal stress test, no prior assessment, anginal symptoms of presentation, new atrial fibrillation, newly abnormal ejection fraction, there is elevated concern for significant underlying coronary disease per discussion with cardiology. They are discussing today plans for additional assessment. Status: Acute (2) Stroke-like symptoms: Initiated on aspirin, statin. Symptoms improving through the day. Discussed with her, cannot exclude entirely TIA or possible small CVA. She is too claustrophobic to attempt MRI assessment. No major lesions noted on CT head. No bleeding. Given rapid improvement symptoms was not candidate for thrombolytic. Additional assessment by carotid Doppler. Echocardiogram was obtained today as well. A1c obtained, normal. Lipid profile baseline obtained. Discussed with her at this time permissive hypertension. Subsequently will benefit from optimization of hypertension as one of her risk factors of CVA as discussed with her. The other risk factor would be atrial fibrillation for which she already had been initiated on anticoagulation. PT, OT. Status: Acute (3) Atrial fibrillation with rapid ventricular response: Converted to sinus rhythm after initial treatment with Cardizem drip. Remains in sinus. Continue metoprolol. Continue anticoagulation, was on Eliquis, but as being additional I suspect cardiology with regards to abnormal stress test, CAD, requested to switch from now transiently to Lovenox. TSH normal. Potassium normal. Normal magnesium. TTE abnormal as above. Status: Acute (4) Chest pain: Currently chest pain-free. As above. Status: Acute Qualifiers: Chest pain type: unspecified Qualified Code(s): R07.9 - Chest pain, unspecified Additional A&P Information Episode of hypotension on presentation: Blood pressure still elevated, but at this time will not escalate antihypertensive therapy any further at least for the next 24 hours. Attestations Medical Necessity Statement*: Continue admission for assessment and management of suspected significant coronary disease, additional assessment of possible TIA versus CVA, in the setting of new onset atrial fibrillation. Coding Level of Care Code Acute Professor Of Special Education for eddie Cisneros Diagnoses Abnormal stress test R94.39 Stroke-like symptoms R29.90 Atrial fibrillation with rapid ventricular response I48.91 Chest pain R07.9 Chest pain type: unspecified
[2021-01-17] VITALS (31 sets, daily range): BP systolic 118–176; BP diastolic 75–114; PULSE 54–85; RESP 14–28; TEMP 36.4–36.8; O2SAT 92–97
[2021-01-17 03:53] LABS: Basophils % 0.5 %; Eosinophils # 0.1 10^3/uL (0.0-0.8); Eosinophils % 2.5 %; Hematocrit 37.9 % (37.0-47.0); Hemoglobin 11.8 g/dL (11.5-15.3); Lymphocytes % 23.3 %; Mean Corpuscular HGB Conc 31.1 g/dL (30.0-36.0); Mean Corpuscular Hemoglobin 29.4 pg (28.0-34.0); Mean Corpuscular Volume 94.3 fl (81-99); Mean Platelet Volume 10.1 fL (7.4-10.4); Monocytes # 0.6 10^3/uL (0.2-0.9); Monocytes % 13.9 %; Neutrophils # 2.58 10^3/uL (1.8-7.7); Neutrophils % 59.6 %; Nucleated Red Blood Cells % 0 %; Platelet Count 217 10^3/cmm (130-400); Red Blood Count 4.02 10^6/uL (4.1-5.3); White Blood Count 4.3 10^3/uL (4.0-10.0)
[2021-01-17 04:15] LABS: Alanine Aminotransferase 9 U/L (0-33); Albumin Level 3.4 g/dL (3.5-5.2); Alkaline Phosphatase 96 IU/L (35-105); Anion Gap 11.9 (5-19); Aspartate Amino Transferase 14 U/L (0-32); Blood Urea Nitrogen 16 mg/dL (8-23); Calcium 8.6 mg/dL (8.5-10.5); Carbon Dioxide 29 mmol/L (22-29); Chloride 105 mmol/L (98-107); Globulin 2.9 g/dL (1.3-4.6); Glucose 99 mg/dL (65-115); Osmolality Calculated 295 mOsm/kg (285-295); Potassium 3.9 mmol/L (3.5-5.1); Sodium 142 mmol/L (136-145); Total Bilirubin 0.3 mg/dL (0.15-1.2); Total Protein 6.3 g/dL (6.6-8.7)
[2021-01-17] MEDS: sodium chloride 0.9% 1,000 ML 50 ML IV (05:07)
--- NOTE | 2021-01-17 06:31 | PC.NURSE ---
Shift Note Frequent safety and comfort rounds continue. Orders and/or nursing care completed as indicated. Patient monitored for response to intervention and treatment(s). Education provided includes plan of care. Patient and/or quality audit representative verbalized understanding. Will continue to monitor.
--- NOTE | 2021-01-17 07:19 | XACV_ITS ---
Exam Room: [facility] Ht: 170 cm Wt: 100 kg BSA: 2.21 m2 Gender: Female : 1945 Any Known Allergies: No known allergies Exam Priority: Routine Procedure(s): Procedure Description: Diagnostic procedure Procedure Description: Coronary Angiography Diagnostic Cath Status: Elective Diagnostic Findings * No disease noted in the Left Main, Left Anterior Descending, Right, or Circumflex coronary arteries. * Coronary angiography shows left dominance. Conclusions 1. No disease noted in the Left Main, Left Anterior Descending, Right, or Circumflex coronary arteries. Recommendations * Continue current medical management and risk factor modification. Diagnostic RX Recommendation: medical therapy and/or counseling Pressures Phase:Rest AO : 75 / 35 ( 49 ) @ 11:17:00 AM 130 / 3 ( 48 ) @ 11:17:00 AM Clinical Evaluation EBL: 5mL-10mL Procedural Details Pre-Procedure Time Out. Identified patient by full name and date of as verbalized by the patient/guarantor. Does the consent match the physician's order: Yes. Accurate & Complete Informed Consent: Yes. Inpatient/Outpatient History & Physical on Chart: Yes. If H&P is completed, is and addenduem needed: Yes; If yes, is the addendum complete: N/A. Visualize and Verify Site with Patient/Guarantor: N/A. Relevant Radiology Images available: Yes. Pre-op teaching completed and patient verbalized understanding. The risks, benefits, and alternatives of sedation and/or procedure were discussed by physician. The patient agrees to continue. Procedure started. Current Diagnosis : NSTEMI. [facility] Clinical Fraility Score: 3: Managing Well. Clinical Cytogeneticist Scientist Indications: ACS > 24 hours. Chest Pain Symptom Assessment: Typical Angina Symptoms. Correct patient, site and procedure confirmed by cath team. Current diagnosis: NSTEMI. PERRLA. Strong, equal hand caustic pump operator bilaterally. Lungs clear x 5 lobes. IV Site on Arrival: 18 gauge in the left anticubital. IV Fluids: 0.9% NaCl at KVO. 500 mL infused prior to cleaning laborer. Oxygen started at 2liters/min via nasal canula. right groin was prepped with chloroprep then draped in the usual sterile fashion. right radial was prepped with chloroprep then draped in the usual sterile fashion. Baseline sample Acquired. HR: 20 BPM. Physician scrubbed in. Immediate Pre-Procedure Time Out. Correct Patient: Yes; Correct Procedure: Yes; Correct Site: Yes; Correct Patient Position: Yes; Correct Supplies: Yes; Dried Flammable Prep: Yes; Blood Products Available: N/A;. Lidocaine 1% infiltrated to the right radial. Arterial access obtained. A 6 occitan TIG catheter in over wire. Exchange wire out. Glidewire inserted. Multiple views taken of left coronary artery. Catheter redirected to the RCA. Catheter removed over the exchange wire. A 5 occitan JR4 catheter in over wire. Multiple views taken of right coronary artery. Catheter removed over the exchange wire. Vital chart was stopped. TR band placed. Hemostasis obtained. A TR Band was successful obtaining hemostatsis at the Right Radial artery insertion site. Post Procedure: Pulses reassessed and unchanged. PERRLA. Strong, equal hand caustic pump operator bilaterally. No VTE prophylaxis required. Medication's Wasted: Nitro = 49.8 mg. Medication's Wasted: Lidocaine 1% = 10 mL. Medication's Wasted: Heparin = 1000 units. Medication's Wasted: Other = Versed 1 mg. Medication's Wasted: Other = Fentanyl 50 mg. Total IV fluids: 50 mL. Contrast type used: Visipaque 320 mgI/mL, 500 mL bottle. Post-op diagnosis: Normal Coronaries. Complications: None. Estimated blood loss: 5mL-10mL. Procedure completed. Patient transferred by wheelchair to 1st floor. Access Site Site: Right Radial artery Sheath Size: 6 Fr Hemostasis Method: TR Band Hemostasis Success: Successful Procedure Medications Start: 12:00 PM Stop: 12:00 PM Medication: Versed Amount: 1 mg Route: I.V. Start: 12:03 PM Stop: 12:03 PM Medication: Fentanyl Amount: 50 mcg Route: I.V. Start: 12:11 PM Stop: 12:11 PM Medication: Nitrogylcerin Amount: 200 mcg Route: I.A. Start: 12:16 PM Stop: 12:16 PM Medication: Heparin Amount: 5000 units Route: I.V. I, the attending physician, have reviewed and verified all procedure medications. Yes, all medications given per verbal order History/Risk Factors Hypertension: Yes Dyslipidemia: No Peripheral Arterial Disease (PAD): No Myocardial Infarction (IL): No Obesity: No Renal Disease: No Prior Interventions PCI: No CABG: No Valve Surgery: No Report Signatures Finalized by Aziza Godinez MD on 01/30/2021 08:15 PM
[2021-01-17] MEDS: diphenhydrAMINE 50 mg Capsule PO (08:48)
[2021-01-17] MEDS: losartan 50 mg Tablet 100 MG PO (08:48)
[2021-01-17] MEDS: metoprolol tartrate 25 mg Tablet 12.5 MG PO (08:48)
[2021-01-17] MEDS: hydroCHLOROthiazide 25 mg Tablet PO (08:49)
[2021-01-17] MEDS: pantoprazole DR 40 mg Tablet PO (08:49)
--- NOTE | 2021-01-17 09:10 | P.PN_ITS ---
Subjective Subjective: Interval history: She says she is doing well today. Denies any chest pain or pressure. Denies any trouble breathing. Denies any new developments with her right arm, and in fact is feeling better today. Denies any new numbness or weakness. She is awaiting coronary angiography scheduled for this morning. Vitals/I&O/Wt Last Vital Signs Temp 98.2 F 01/17/21 08:00 Pulse 57 L 01/17/21 08:00 Resp 22 H 01/17/21 08:00 BP 127/93 01/17/21 08:48 Pulse Ox 96 01/17/21 08:00 01/16/21 01/17/21 01/17/21 22:59 06:59 14:59 Intake Total 236 / 472 Balance 236 / 472 Physical Exam Const: COMMON NORMALS: no acute distress, patient oriented x3 and alert GENERAL APPEARANCE: cooperative and comfortable ORIENTATION/CONSCIOUSNESS: Yes awake HENMT: COMMON NORMALS: oropharynx normal Neck/C-Spine: COMMON NORMALS: no JVD Resp: COMMON NORMALS: normal respiratory effort and clear to auscultation bi laterally AUSCULTATION: clear to auscultation bilaterally Cardio: COMMON NORMALS: no JVD, regular rhythm, S1 normal heart sound present, S2 normal heart sound present and No murmurs present (Cardio) RHYTHM: regular rhythm HEART SOUNDS: S1 normal heart sound present and S2 normal heart sound present GI: COMMON NORMALS: Normal to inspection, nondistended, normoactive bowel sounds present, Soft to palpation and non-tender PALPATION: Yes Soft to palpation Extremity: COMMON NORMALS: no joint enlargement and no pedal edema OTHER: Improving R upper extremity mild dysmetria. Otherwise power symmetrical. Sensation symmetrical. No sensory or visual neglect. Good radial pulse. Right extremity and hand. Well-perfused. Neuro: COMMON NORMALS: patient oriented x3 and moves all extremities SENSORIUM/ORIENTATION: Yes alert MOTOR EXAM: Pronator motor function not present OTHER: No trouble tracking. No visual field deficit. Skin: COMMON NORMALS: no rashes or lesions noted GENERAL SKIN EXAM: no rashes or lesions noted Data : 01/17/21 03:12 01/17/21 03:12 A&P Assessment and plan (1) Abnormal stress test: Concern for underlying progressive CAD. Scheduled for additional assessment by car angiography this morning. Also noted borderline low ejection fraction, 45-50%. Diastolic function could not be determined. Noted mild MVR. LA with mild dilation. Mild to moderate AVR. Mild TVR. As below she is started on aspirin, statin. Is already on beta-selena. With abnormal stress test were additionally requested cardiology consultation. Appreciate assessment and recommendations. Given abnormal stress test, no prior assessment, anginal symptoms of presentation, new atrial fibrillation, newly abnormal ejection fraction, there is elevated concern for significant underlying coronary disease per discussion with cardiology. They are discussing today plans for additional assessment. Status: Acute (2) Stroke-like symptoms: These are continue to improve. Initiated on aspirin, statin. Symptoms improving through the day. Cannot exclude entirely TIA or possible small CVA. She is too claustrophobic to attempt MRI assessment. No major lesions noted on CT head. No bleeding. Additional assessment by carotid Doppler. Pending. A1c obtained, normal. Lipid profile baseline obtained. Discussed with her at this time permissive hypertension. Subsequently will benefit from optimization of hypertension as one of her risk factors of CVA as discussed with her. The other risk factor would be atrial fibrillation for which she already had been initiated on anticoagulation. PT, OT. Status: Acute (3) Atrial fibrillation with rapid ventricular response: Remains in sinus rhythm. Converted to sinus rhythm after initial treatment with Cardizem drip in ER. Continue metoprolol. Continue anticoagulation, was on Eliquis, but as being additional I suspect cardiology with regards to abnormal stress test, CAD, requested to switch from now transiently to Lovenox. TSH normal. Potassium normal. Normal magnesium. TTE abnormal as above. Status: Acute (4) Chest pain: Currently chest pain-free. As above. Status: Acute Qualifiers: Chest pain type: unspecified Qualified Code(s): R07.9 - Chest pain, unspecified Additional A&P Information Episode of hypertension on presentation: Improved. Today 127/93. Attestations Medical Necessity Statement*: Continue admission for cyst management of suspected progressive CAD, strokelike symptoms, new onset atrial fibrillation. Coding Level of Care Code Acute Medical Office Secretary for Alejandro Cisneros Diagnoses Abnormal stress test R94.39 Stroke-like symptoms R29.90 Atrial fibrillation with rapid ventricular response I48.91 Chest pain R07.9 Chest pain type: unspecified
--- NOTE | 2021-01-17 10:14 | PC.OT ---
OT EVALUATION HELD THIS MORNING DUE TO PATIENT IN RESEARCH CONTRACTS SUPERVISOR AT THIS TIME.
[2021-01-17] MEDS: aspirin 81 mg Chew Tablet 162 MG PO (10:15)
--- NOTE | 2021-01-17 12:30 | PC.NURSE ---
Pt returned from company laborer with right radial TR Band. No hematoma, swelling or excessive bleeding noted. Pt had no c/o pain or discomfort at the present time. Call light in reach. Will cont to monitor.
--- NOTE | 2021-01-17 12:41 | P.PN_ITS ---
Subjective Subjective: Interval history: Patient underwent left heart cath noted to have normal coronaries. She continues to be in sinus rhythm. Medications: Reviewed: Yes Vitals/I&O/Wt Last Vital Signs Temp 98.1 F 01/17/21 11:26 Pulse 62 01/17/21 11:26 Resp 18 01/17/21 11:26 BP 156/80 01/17/21 11:31 Pulse Ox 97 01/17/21 11:26 01/16/21 01/17/21 01/17/21 22:59 06:59 14:59 Intake Total 236 / 472 Balance 236 / 472 Physical Exam Narrative: EXAM NARRATIVE: GENERAL: Patient is alert, awake and oriented x3. NECK: No jugular vein distension. HEENT: No cyanosis. No icterus. No pallor. HEART: Regular S1 and S2. No murmur, rub or gallop. LUNGS: Clear to auscultate bilaterally. ABDOMEN: Soft, nontender and nondistended. Positive bowel sounds. No guarding, rebound or tenderness. CENTRAL NERVOUS SYSTEM: Grossly nonfocal. EXTREMITIES: Lower extremities without edema bilaterally. Data : 01/17/21 03:12 01/17/21 03:12 A&P Assessment and plan (1) Chest pain: S/p coronary angiogram showing normal coronaries without any significant stenosis. Chest pain may be noncardiac and related to A. fib with rapid ventricle response. Rate control strategy with beta-selena adopted. Status: Acute Qualifiers: Chest pain type: unspecified Qualified Code(s): R07.9 - Chest pain, unspecified (2) Atrial fibrillation with rapid ventricular response: Appear to be in sinus rhythm. Continue anticoagulation and beta-selena Status: Acute (3) Essential hypertension: Well-controlled continue medicine. Status: Acute Attestations Medical Necessity Statement*: From cardiovascular perspective patient can be discharged Coding Level of Care Code Established Pt Acute White Sugar Syrup Operator for g Fwd Patient Type Established History Detailed Exam Detailed Medical Decision Making Moderate Complexity Diagnoses Chest pain R07.9 Chest pain type: unspecified Atrial fibrillation with rapid ventricular response I48.91 Essential hypertension I10
--- NOTE | 2021-01-17 12:46 | USCV_ITS ---
Leticia North Age: 75 Gender: F : 1945 Exam Date: 01/17/2021 08:26 Ordering Phys: Jerald Grant MD Technologist: [place] Exam Location: [facility] Indication: TIA VS STROKE LIKE SYMPTOMS Risk Factors: Previous Vascular Surgery: Right Brachial BP: / Left Brachial BP: / Right Left Velocity (cm/s) Spectral Plaque Velocity (cm/s) Spectral Plaque Syst/Diast Broadening Syst/Diast Broadening 127.90/24.30 Prox CCA 73.30 / 18.10 87.10/ 19.80 Mid CCA 68.50 / 15.40 63.90/ 20.90 Distal CCA 74.60 / 15.50 33.10/ 13.40 Prox ICA 39.70 / 12.90 46.50/ 18.70 Mid ICA 52.00 / 19.90 70.10/ 21.60 Distal ICA 47.30 / 20.30 48.60 ECA 30.80 0.53 ICA/CCA 0.76 Antegrade Vertebral Antegrade 41.90/ 12.40 cm/s 36.40/ 11.40 cm/s Bi Subclavian Bi 65.20 75.60 FINDINGS Comparison: none available. No significant elevation of systolic or diastolic velocities. Waveforms are normal. No significant amount of calcified plaque or intimal thickening identified. CONCLUSIONS Normal carotid doppler ultrasound. Dr. Jessica Dubon DO (Electronically Signed) Final Date: 17 January 2021 12:49 S
[2021-01-17] MEDS: sodium chloride 0.9% 1,000 ML 100 ML IV (13:00)
--- NOTE | 2021-01-17 14:22 | PC.OT ---
OT EVALUATION ORDERS RECEIVED. OT SCREEN COMPLETED. NO SKILLED OT NEEDS AT THIS TIME.
--- NOTE | 2021-01-17 15:59 | P.DS_ITS ---
Discharge Providers Date of Admission: 01/15/21 10:04 Date of Discharge: January 17, 2021 Attending Provider at Admission: Nancy Chatman MD Attending Provider at Discharge: Jerald Grant Diagnoses at Discharge Discharge Diagnosis (1) Chest pain: Status: Acute Qualifiers: Chest pain type: unspecified Qualified Code(s): R07.9 - Chest pain, unspecified (2) Atrial fibrillation with rapid ventricular response: Status: Acute (3) Essential hypertension: Status: Acute Reason for Visit Reason for Visit: chest pain x 1 week Hospital Course Hospital Course Very pleasant 75-year-old lady with history of hypertension was admitted versus management after presenting with A. fib with RVR as well as anginal symptoms. In ER she was treated with Cardizem drip, started on metoprolol 12.5 mg p.o. twice daily. Converted to sinus rhythm in 50s-70s in ER. Due to stroke risk started on anticoagulation. Subsequently remained chest pain-free. Additionally assessed by echocardiogram with finding of reduced ejection fraction 45-50%, without prior comparison. Mildly dilated LA. Mild to moderate AVR. Mild MVR. Mild TVR. With anginal symptoms, new atrial fibrillation, finding of reduced ejection fraction, underwent additional assessment by stress testing found to be abnormal with small area of fixed perfusion defect surrounded by medium sized area of patchy reversibility in mid to distal anterior wall suggestive of old myocardial infarction surrounded by medium sized area of mild maki-infarct ischemia in LAD territory. Small area of distal fixed perfusion defect in anteroseptal wall surrounded by small area of mild reversibility suggestive of lesion in RCA territory. After stress testing noted to have clumsiness of her right arm, initially transiently also weakness and numbness. Weakness and numbness resolved pretty quickly. Mild dysmetria remained, but continues to improve/resolve. Discussed with her possibility of TIA versus possible CVA. She is to claustrophobic to undergo MRI. CT head obtained stat after noted symptoms showed no bleeding, no acute abnormality. Was started on aspirin, statin. Carotid Doppler obtained subsequently was normal. A1c without suggestion of diabetes. She is noted to be hypertensive, initially with permissive hypertension. Continues currently on metoprolol, and after discharge we will continue losartan, HCTZ. Due to risk of CVA with atrial fibrillation continues on anticoagulation with Eliquis. Continues on metoprolol for rate control, although at 12.5 mg currently due to heart rate sometimes noted as low as 56-58 bpm. She is asked to follow-up with cardiology in office. Please continue to optimize risk factors of CVA. She is also asked to follow-up with neurology. Please help her to continue optimize risk factors and avoid additional CVA. With concern for underlying/progressive CAD as above, additionally assessed by cardiology, after extensive discussion with myself and cardiology, she had decided for additional assessment with coronary angiography which did not reveal any significant coronary disease. Per discussion with cardiology stress test abnormality appears may have been artifactual, possibly compounded with lack of prone images. She will discharge after TR band comes off. With noted chronic kidney disease, please reassess kidney function at the next visit. Physical Exam Narrative: EXAM NARRATIVE: at bedside. Const: COMMON NORMALS: no acute distress, patient oriented x3 and alert GENERAL APPEARANCE: cooperative and comfortable ORIENTATION/CONSCIOUSNESS: Yes awake OTHER: She is doing well. Denies chest pain or pressure. She is awake, alert, in good spirits. Pleasant, conversant. Denies any additional new symptoms. Right arm continues to improve. Feels well, and is happy about returning home. HENMT: COMMON NORMALS: oropharynx normal Neck/C-Spine: COMMON NORMALS: no JVD Resp: COMMON NORMALS: normal respiratory effort and clear to auscultation bilaterally AUSCULTATION: clear to auscultation bilaterally Cardio: COMMON NORMALS: no JVD, regular rhythm, S1 normal heart sound present, S2 normal heart sound present and No murmurs present (Cardio) RHYTHM: regular rhythm HEART SOUNDS: S1 normal heart sound present and S2 normal heart sound present GI: COMMON NORMALS: Normal to inspection, nondistended, normoactive bowel sounds present, Soft to palpation and non-tender PALPATION: Yes Soft to palpation Extremity: COMMON NORMALS: no joint enlargement and no pedal edema Neuro: COMMON NORMALS: patient oriented x3 and moves all extremities SENSORIUM/ORIENTATION: Yes alert MOTOR EXAM: Pronator motor function not present Skin: COMMON NORMALS: no rashes or lesions noted GENERAL SKIN EXAM: no rashes or lesions noted Discharge Data Data Completed and Pending: Completed Studies During Hospitalization Category Date Time Status CT angio chest PE protcl [id number] Urge nt Cat Scan 01/14/21 21:[address] head wo con* 7 [id number] Stat Cat Scan 01/16/21 09:49 Completed Sestamibi Stress Test Request Routi ne Exams 01/16/21 08:00 Draft XR chest 1V tessa ble [id number] Stat Exams 01/14/21 19:21 Completed NM rupesh perf SPECT r/s* [id number] Routin e Nuc Med 01/16/21 09:45 Completed CV carotid duplex BI* [id number] Routine Ultrasound 01/17/21 12:46 Completed CV. echo complete * [id number] Routine Ultrasound 01/15/21 02:22 Completed Pending at discharge Category Date Time Status [employer] request for service Routin e Exams 01/17/21 07:19 Taken Basic Metabolic P gurmeet AM LABS Lab 01/18/21 04:00 Ordered Complete Blood Co unt w/Auto AM LABS Lab 01/18/21 04:00 Ordered Complete Blood Co unt w/Auto AM LABS Lab 01/18/21 04:00 Ordered Comprehensive Met abolic Panel AM LA BS Lab 01/18/21 04:00 Ordered Labs from last 24 hours 01/17/21 01/17/21 03:12 03:12 WBC 4.3 RBC 4.02 L Hgb 11.8 Hct 37.9 MCV 94.3 MCH 29.4 MCHC 31.1 RDW 13.0 Plt Count 217 MPV 10.1 Neut % (Auto) 59.6 Lymph % (Auto) 23.3 [place] % (Auto) 13.9 Eos % (Auto) 2.5 Baso % (Auto) 0.5 Neut # (Auto) 2.58 Lymph # (Auto) 1.0 [place] # (Auto) 0.6 Eos # (Auto) 0.1 Baso # (Auto) 0.0 Nucleated RBC % (a uto) 0 Nucleated RBCs # 0.0 Sodium 142 Potassium 3.9 Chloride 105 Carbon Dioxide 29 Anion Gap 11.9 BUN 16 Creatinine 1.2 H GFR Calculation Not Reportable Glucose 99 Calculated Osmolal ity 295 Calcium 8.6 Total Bilirubin 0.3 AST 14 ALT 9 Alkaline Phosphata se 96 Total Protein 6.3 L Albumin 3.4 L Globulin 2.9 Vitals: Last Vital Signs Temp 97.6 F 01/17/21 15:43 Pulse 61 01/17/21 15:43 Resp 24 H 01/17/21 15:43 BP 150/76 01/17/21 15:43 Pulse Ox 95 01/17/21 15:43 Discharge Plan Discharge Patient Disposition: Home Condition: Stable Prescriptions: New hydrochlorothiazide 25 mg Tablet 25 mg PO DAILY Qty: 30 RF: 0 losartan 50 mg Tablet 100 mg PO DAILY Qty: 60 RF: 0 aspirin [Children's Aspirin] 81 mg Tablet,Chewable 162 mg PO DAILY Qty: 90 RF: 0 atorvastatin 40 mg Tablet 40 mg PO BEDTIME Qty: 90 RF: 0 apixaban 5 mg tablet 5 mg PO BID Qty: 60 RF: 3 Changed metoprolol tartrate 25 mg tablet 12.5 mg PO DAILY MDD see pharmacy comment Qty: 0 RF: 0 Discharge Orders: Discharge Order (Routine); Ordered 01/17/21 Ordered By: Jerald Grant Referrals: [facility] [Provider Group] - 1 week (TIA/CVA) David Gray DO [Physician] - (You will have a hospital follow up appointment with Dr. Gray on January 25, 2021 at 11:00 am. If you have any questions please call them at [phone].) Aziza Godinez MD [Physician] - 1 month Karma Peace FNP [Nurse Practitioner] - 1 week Discharge Diet: Cardiac Discharge Activity: Increase activity as tolerated, Limit activity as instructed and As per PT/OT instructions Patient Instructions: Aspirin (By mouth), Losartan/Hydrochlorothiazide (By mouth), Apixaban (By mouth), Atrial Fibrillation (GEN), Ischemic Stroke (GEN), Hypertension (GEN), Opioid Safety Activity Restrictions/Additional Instructions: Please avoid lifting more than 3 pounds for 2 days. If you note any swelling, bleeding, pulsatile mass in your right wrist, any numbness, weakness of the right hand, or other concerning symptoms, seek medical attention immediately. Please continue aspirin, cholesterol medication, follow-up with neurology with regards to the TIA or possible small stroke with clumsiness in the right arm. Continue exercises as instructed by PT, OT. Please continue to measure your blood pressures 3 times daily, write down values. Continue blood pressure medications. Follow-up with your primary doctor to reassess blood pressure, optimize control to help reduce chance of recurrence of stroke. Please note to reduce risk of stroke due to atrial fibrillation you are started on blood thinner medication with Eliquis in addition to aspirin. Please note that both medication and also in addition to aspirin raises your risk of bleeding. Please avoid injury at any cost. If you notice bleeding, stop medication, seek medical attention. Please have your primary doctor follow-up your kidney function at next visit. Avoid any NSAIDs like ibuprofen, Aleve, etc. Discharge Attestations Time Spent in Discharge Care*: greater than 30 min Quality Metrics Clinical Quality Measures During this hospital stay, did patient experience: Stroke Contraindication to Antithrombotic: Antithrombotic prescribed Contraindication to Anticoagulation: Anticoagulation prescribed Contraindication to Statin: Statin prescribed Coding Level of Care Code Acute g DC note Exam Comprehensive Diagnoses Chest pain R07.9 Chest pain type: unspecified Atrial fibrillation with rapid ventricular response I48.91 Essential hypertension I10
--- NOTE | 2021-01-17 16:00 | PC.NURSE ---
TR Band removed no hematoma, swelling, or bleeding noted. Pt tolerated well. Pt had no c/o pain or discomfort at the present time. Call light in reach, will continue to monitor.
--- NOTE | 2021-01-17 19:01 | PC.NURSE ---
Pt discharged home. Pts IV removed no redness or swelling noted. Pt discharge instructions given along with prescriptions and follow up appointments. Pt had no c/o pain or discomfort at the time of discharge.
--- NOTE | 2021-01-17 19:27 | PC.NURSE ---
pt discharged home, left via wheelchair with spouse, discharge teaching done and IV removed per previous nurse
--- NOTE | 2021-01-19 13:28 | PC.SOCIAL ---
discharge follow up call made. patient has follow up appointments made. patient didn't get her Eliquis prescription due to cost being $450. Spoke [address]. Grant to see if we could change prescription to Xarelto. Prescription was changed. Insurance still didn't cover so a Xarelto 30 day trial was called into [facility] for pts first month supply. Will call and let Dr. Hall office know about medication change, also.
== END 2021-01-17 19:29 | disposition home or self-care (01) | DRG 287 ==
LOC: ER 01-15 02:12 → ER IP 01-15 03:28 → CSU 01-15 12:59
PROVIDERS: Internal Medicine Cardiovascular Disease; Admitting Provider Student in an Organized Health Care Education/Training Program; Emergency Provider Emergency Medicine; Visit Provider Internal Medicine
PROC: B2111ZZ Fluoroscopy of Multiple Coronary Arteries using Low Osmolar Contrast (ICD-10-PCS; principal; 2021-01-17 10:00)
DX: I48.91 Unspecified atrial fibrillation (principal); I31.3 Pericardial effusion (noninflammatory); I48.92 Unspecified atrial flutter; K44.9 Diaphragmatic hernia without obstruction or gangrene; E78.5 Hyperlipidemia, unspecified; R27.8 Other lack of coordination; I12.9 Hypertensive chronic kidney disease with stage 1 through stage 4 chronic kidney disease, or unspecified chronic kidney disease; N18.9 Chronic kidney disease, unspecified; Z79.82 Long term (current) use of aspirin; Z80.9 Family history of malignant neoplasm, unspecified
CPT/HCPCS: 36415; 70450; 71045; 71275; 78452; 80053; 80061; 82550; 83036; 83735; 83880; 84443; 84484; 85025; 85378; 93005; 93017; 93306; 93454; 93880; 96372; 96374; 96375; 97110; 97161; 99285; A9500; C1769; C1887; C1894; G0378; J1644; J1650; J2250; J2785; J3010; J3490; J7030; Q0163; Q9967

== ENCOUNTER 2021-01-27 11:02 | Outpatient (CLI) | payer MEDICARE, OTHER, SELFPAY ==
[2021-01-27 12:03] LABS: Basophils % 0.3 %; Eosinophils # 0.1 10^3/uL (0.0-0.8); Eosinophils % 1.9 %; Hematocrit 37.5 % (37.0-47.0); Hemoglobin 11.9 g/dL (11.5-15.3); Lymphocytes % 17.5 %; Mean Corpuscular HGB Conc 31.7 g/dL (30.0-36.0); Mean Corpuscular Hemoglobin 29.8 pg (28.0-34.0); Mean Corpuscular Volume 93.8 fl (81-99); Mean Platelet Volume 10.1 fL (7.4-10.4); Monocytes # 0.5 10^3/uL (0.2-0.9); Monocytes % 9.2 %; Neutrophils # 4.18 10^3/uL (1.8-7.7); Neutrophils % 70.9 %; Nucleated Red Blood Cells % 0 %; Platelet Count 221 10^3/cmm (130-400); Red Cell Distribution Width 12.7 % (12.1-15.1); White Blood Count 5.9 10^3/uL (4.0-10.0)
[2021-01-27 12:32] LABS: Alanine Aminotransferase 14 U/L (0-33); Albumin Level 3.7 g/dL (3.5-5.2); Alkaline Phosphatase 93 IU/L (35-105); Anion Gap 12.7 (5-19); Aspartate Amino Transferase 16 U/L (0-32); Blood Urea Nitrogen 13 mg/dL (8-23); Calcium 8.4 mg/dL (8.5-10.5); Carbon Dioxide 28 mmol/L (22-29); Chloride 101 mmol/L (98-107); Ferritin 35 ng/mL (15-150); Glucose 87 mg/dL (65-115); Iron 42 ug/dL (37-145); Osmolality Calculated 285 mOsm/kg (285-295); Percent Saturation 12.8 % (20-50); Potassium 3.7 mmol/L (3.5-5.1); Sodium 138 mmol/L (136-145); Total Bilirubin 0.3 mg/dL (0.15-1.2); Total Iron Binding Capacity 327 mcg/dl; Total Protein 6.7 g/dL (6.6-8.7); Unsaturated Iron Binding 285 ug/dL (112-347)
== END 2021-01-27 11:03 | disposition home or self-care (01) ==
PROVIDERS: PCP Family Medicine; Visit Provider Internal Medicine Medical Oncology
DX: D50.8 Other iron deficiency anemias (principal)
CPT/HCPCS: 36415; 80053; 82728; 83540; 83550; 85025

== ENCOUNTER 2021-01-31 06:11 | Outpatient (CLI) | payer MEDICARE, OTHER, SELFPAY ==
--- NOTE | 2021-01-31 18:08 | ONC FU_ITS ---
Dr. Gavin Patient Follow-Up Note Patient: Leticia North Unit #: [id number]: 1945 Dicatated By: Naresh Gavin M.D.Date of Visit:Jan 31, 2021 Onc Med Follow-up/Prog Note Chief Complaint: Anemia. History of Present Illness: This is a 75 year-old woman with iron deficiency anemia. She has had recurrent episodes of iron deficiency anemia, presumed to be due to inadequate oral iron absorption, as multiple GI studies had failed to document any GI blood loss. Her anemia has been managed with parenteral iron replacement, as in the past she had not responded to oral iron supplements. She had typically required parenteral iron about every 6 months. On one occasion her anemia was severe enough that she did require transfusion. I had seen her initially on 06/11/2018. Her laboratory studies one week earlier had shown mild anemia with hemoglobin 11.3 g and hematocrit 35.5%. The red cell indices were borderline low. The white blood cell count was 4900 and the platelet count was 300,000. The serum iron was low at 41 mcg/dL with transferrin saturation 9.6% and the ferritin was low at 6.0 ng/mL, consistent with iron deficiency. At that time she reported that with her most recent prior Injectafer and fusion she had developed significant anxiety. After discussion with her, she opted to proceed with 2 infusions of Injectafer, but with premedication which included dexamethasone, Benadryl, and lorazepam. She tolerated the infusions well. Her repeat laboratory studies in September 2018 showed normal hemoglobin at 13.0 g. However, her transferrin saturation was low at 8.9% and the ferritin was also low at 17.0 ng/mL, consistent with iron deficiency, and I did opt to give her further parenteral iron replacement with 2 additional infusions of Injectafer. At her follow-up visit in December 2018 her hemoglobin had increased to 13.1 g with transferrin saturation 21%. She was feeling significantly better. However, at her follow-up visit on 08/20/2019 she was significantly more fatigued. Her hemoglobin was back down to 11.9 g with transferrin saturation low at 16%. In addition, her methylmalonic acid level was elevated at 892 mmol/L. She was given a single infusion of Injectafer. She also started B12 replacement. I had seen her for a follow-up visit on 10/28/2019. She continued to complain of having poor energy. As she was still mildly anemic with low transferrin saturation, she was given further parenteral iron replacement with 2 infusions of Injectafer. During follow-up she remained mildly anemic. Her repeat serum iron studies on 02/15/2020 showed low transferrin saturation at 12.6% and the ferritin also had decreased to 27 ng/mL, consistent with iron deficiency. She was given 2 additional infusions of Injectafer. A repeat CBC on 02/13/2020 still showed hemoglobin low at 9.0 g but with normal transferrin saturation at 21% and with ferritin increased to 451 ng/mL. With evidence of persistent iron deficiency anemia, she was given additional parenteral iron replacement with 2 infusions of Injectafer in February 2020 and again in April 2020. At her follow-up visit on 05/23/2020 her hemoglobin was back up to 12.3 g. During subsequent follow-up, her hemoglobin/hematocrit levels remained borderline low to slightly decreased, and her transferrin saturation also remained low. She had additional infusions of Injectafer on 06/24/2020 and on 10/26/2020. Her medical illnesses, in addition to anemia and anxiety, include hypertension, degenerative arthritis, and glaucoma. She also has a history of thyroid nodule. She is a nonsmoker. INTERIM HISTORY: On 01/15/2021 she was admitted to the hospital with atrial fibrillation/RVR. She was discharged home on losartan 100 mg daily, HCTZ 25 mg daily, atorvastatin 40 mg daily, and apixaban 5 mg twice daily. She also continued aspirin at 162 mg daily. Her metoprolol dosage was decreased to 12.5 mg daily. She had cardiology follow-up on 01/24/2021, and the losartan dosage was reduced to 50 mg daily. She is seen for a follow-up visit. She continues to have limited activity tolerance, but she is able to do some light work. ECOG score is 1. Appetite is fair. She has not had fever or night sweats. She says her breathing is just fair. She occasionally has chest pain with exertion. She has no GI complaints. She says her bladder function has improved. She has no significant joint or bone pain. She does not complain of headache or dizziness. She has no numbness/paresthesia or other focal neurologic symptoms. Medications: Aspirin 1 Tablet (of 81 mg) Tablet, chewable Oral daily, Atorvastatin Calcium 1 Tablet (of 40 mg) Oral at bedtime, Cyanocobalamin 1 (1000 mcg/mL) Injection q 1 week, hydroCHLOROthiazide 1 Tablet (of 25 mg) Oral daily, LORazepam 1 Tablet (of 0.5 mg) Oral daily PRN, Losartan Potassium 1 Tablet (of 50 mg) Oral daily, Rivaroxaban 1 Tablet (of 20 mg) Oral at bedtime Allergies: iron Vital Signs: Performed on Jan 31, 2021 11:02 Height - 67.00 in Weight - 219.6 lbs (LOW) BSA - 2.10 sq.m BMI - 34.39 (HIGH) Temperature - 98.3 F (LOW) Pulse - 71 /min Respiration - 18 /min BP - 136/83 mm(hg) O2 Sat - 98 % Pain - 4 Fatigue - 5 Physical Examination: Constitutional - She looks pretty good generally, Eyes - Sclerae nonicteric. Conjunctivae clear, ENMT - No lesions noted in the oral cavity, Hematologic/Lymphatic - No cervical, clavicular, or axillary adenopathy, Respiratory - Lungs are clear with good air movement bilaterally, Cardiovascular - Heart rhythm is regular. There is no murmur, gallop, or rub noted, Abdomen - Mildly distended. Liver and spleen are not enlarged. There is no abdominal mass or ascites noted and there is no inguinal adenopathy, Extremities - No edema, Neurologic - No focal neurologic deficits noted. Lab/Imaging: Test performed on Jan 27, 2021 11:34 Ferritin 35 ng/mL Iron 42 mcg/dL Sodium 138 mmol/L Iron Binding Capacity (TIBC) 327 mcg/dl Potassium 3.7 mmol/L % Iron Saturation 12.8 % Chloride 101 mmol/L CO2 28 mmol/L UIBC 285 mcg/dL Anion Gap 12.7 BUN 13 mg/dL Creatinine 1.1 mg/dL Cr Clearance (Est) 69.5500 mL/min Glucose 87 mg/dL Osmolality - Calculated 285 mOsm/kg Calcium 8.4 mg/dL Protein, Total 6.7 g/dL Albumin 3.7 g/dL Globulin 3.0 g/dL Bilirubin, Total 0.3 mg/dL ALT (SGPT) 14 U/L AST (SGOT) 16 U/L Alkaline Phosphatase 93 IU/L WBC 5.9 10 3/uL RBC 4.00 10 6/uL HGB 11.9 g/dL HCT 37.5 % MCV 93.8 fl MCH 29.8 pg MCHC 31.7 g/dL RDW 12.7 % Platelet Count 221 10 3/cmm MPV 10.1 fL Neutrophils 4.18 10 3/uL Lymphocytes 1.0 10 3/uL Monocytes 0.5 10 3/uL Eosinophils 0.1 10 3/uL Basophils 0.0 10 3/uL Neutrophil % 70.9 % Lymphocyte % 17.5 % Monocyte % 9.2 % Eosinophil % 1.9 % Basophils % 0.3 % NRBC % 0 % Problem List: 1. Recurrent iron deficiency anemia, presumed to be due to inadequate oral iron absorption. She has been managed with parenteral iron replacement, as her anemia had been refractory to oral iron supplements. 2. She also was found to have B12 deficiency, for which she has been on replacement therapy. 3. Hypertension. 4. Degenerative arthritis. 5. Glaucoma. 6. She has a history of thyroid nodule. 7. She has chronic anxiety. Problems Addressed with this Encounter and Plan: 1. Patient with recurrent episodes of iron deficiency anemia. These have not been responsive to oral iron supplementation. She had continued to have mild anemia despite multiple infusions of Injectafer. Her stool FIT was repeated and was negative. During follow-up she continued to have borderline low hemoglobin/hematocrit levels and low transferrin saturation, and she was given additional infusions of Injectafer on 06/24/2020 and on 10/26/2020. She has had some difficulty tolerating the iron infusions, particularly if they are administered too rapidly. At this point she is slightly anemic again. Her transferrin saturation is low at 12.8% and her ferritin is also relatively low at 35 ng/mL, consistent with iron deficiency. With her recent cardiac issues, she is not anxious to have another iron infusion. As such, I will just follow her expectantly. She will be scheduled for a repeat CBC in 6 weeks and a follow-up visit in 3 months. 2. She also was found to have B12 deficiency, and she has continued her monthly B12 injections. 3. She had a recent hospitalization for atrial fibrillation with rapid ventricular response. By clinical evaluation, she appears to be in sinus rhythm again. She is on anticoagulation with apixaban. She previously had negative stool FIT, but with her recurrent iron deficiency, GI blood loss is still a concern, particularly so if she is going to be on anticoagulation. Signed By: Naresh Gavin M.D. <<Signature on File>>
== END 2021-01-31 06:12 | disposition home or self-care (01) ==
LOC: ONCMED 06:12
PROVIDERS: PCP Family Medicine; Visit Provider Internal Medicine Medical Oncology
DX: D50.9 Iron deficiency anemia, unspecified (principal); E53.8 Deficiency of other specified B group vitamins; I48.20 Chronic atrial fibrillation, unspecified; I10 Essential (primary) hypertension; M19.90 Unspecified osteoarthritis, unspecified site; H40.9 Unspecified glaucoma; F41.8 Other specified anxiety disorders; Z79.01 Long term (current) use of anticoagulants; Z79.82 Long term (current) use of aspirin; Z79.899 Other long term (current) drug therapy
CPT/HCPCS: 99214

== ENCOUNTER 2021-03-01 14:01 | Outpatient (CLI) | payer MEDICARE, OTHER, SELFPAY ==
[2021-03-01 14:27] LABS: Basophils % 0.2 %; Eosinophils # 0.2 10^3/uL (0.0-0.8); Eosinophils % 2.7 %; Hematocrit 33.8 % (37.0-47.0); Hemoglobin 10.5 g/dL (11.5-15.3); Lymphocytes # 1.2 10^3/uL (0.8-4.8); Mean Corpuscular HGB Conc 31.1 g/dL (30.0-36.0); Mean Corpuscular Hemoglobin 28.8 pg (28.0-34.0); Mean Corpuscular Volume 92.9 fl (81-99); Mean Platelet Volume 9.6 fL (7.4-10.4); Monocytes # 0.5 10^3/uL (0.2-0.9); Monocytes % 9.6 %; Neutrophils # 3.59 10^3/uL (1.8-7.7); Neutrophils % 65.3 %; Nucleated Red Blood Cells % 0 %; Platelet Count 247 10^3/cmm (130-400); Red Blood Count 3.64 10^6/uL (4.1-5.3); Red Cell Distribution Width 13.1 % (12.1-15.1); White Blood Count 5.5 10^3/uL (4.0-10.0)
[2021-03-01 15:02] LABS: Alanine Aminotransferase 10 U/L (0-33); Albumin Level 3.6 g/dL (3.5-5.2); Alkaline Phosphatase 94 IU/L (35-105); Anion Gap 12.1 (5-19); Aspartate Amino Transferase 14 U/L (0-32); Blood Urea Nitrogen 15 mg/dL (8-23); Calcium 8.7 mg/dL (8.5-10.5); Carbon Dioxide 27 mmol/L (22-29); Chloride 103 mmol/L (98-107); Ferritin 15 ng/mL (15-150); Globulin 2.9 g/dL (1.3-4.6); Glucose 96 mg/dL (65-115); Iron 24 ug/dL (37-145); Osmolality Calculated 287 mOsm/kg (285-295); Percent Saturation 6.8 % (20-50); Potassium 4.1 mmol/L (3.5-5.1); Sodium 138 mmol/L (136-145); Total Bilirubin 0.2 mg/dL (0.15-1.2); Total Iron Binding Capacity 350 mcg/dl; Total Protein 6.5 g/dL (6.6-8.7); Unsaturated Iron Binding 326 ug/dL (112-347)
== END 2021-03-01 14:02 | disposition home or self-care (01) ==
LOC: ONCMED 14:05
PROVIDERS: Internal Medicine Medical Oncology; PCP Family Medicine; Visit Provider Nurse Practitioner
DX: D50.9 Iron deficiency anemia, unspecified (principal)
CPT/HCPCS: 36415; 80053; 82728; 83540; 83550; 85025

== ENCOUNTER 2021-03-06 06:40 | Outpatient (CLI) | payer MEDICARE, OTHER, SELFPAY ==
[2021-03-06] MEDS: LORazepam 2 mg/mL INJ 1 mL 0.5 MG IV (14:50)
[2021-03-06] MEDS: diphenhydrAMINE 50 mg/mL SDV 1mL 25 MG IV (14:53)
[2021-03-06] MEDS: ferric carboxy (PYXIS) 750 MG in sodium chloride 0.9% (100 ml) 100 ML 375 MG IV (15:23)
== END 2021-03-06 06:41 | disposition home or self-care (01) ==
LOC: ONCMED 06:40
PROVIDERS: PCP Family Medicine; Visit Provider Internal Medicine Medical Oncology
DX: D50.9 Iron deficiency anemia, unspecified (principal); Z79.899 Other long term (current) drug therapy
CPT/HCPCS: 96365; 96367; 96375; J1100; J1200; J1439; J2060

== ENCOUNTER 2021-03-13 06:55 | Outpatient (CLI) | payer MEDICARE, OTHER, SELFPAY ==
[2021-03-13] MEDS: sodium chloride 0.9% 250 ML 75 ML IV (15:26)
[2021-03-13] MEDS: diphenhydrAMINE 50 mg/mL SDV 1mL 25 MG IV (15:26)
[2021-03-13] MEDS: LORazepam 2 mg/mL INJ 1 mL 0.5 MG IV (15:30)
[2021-03-13] MEDS: ferric carboxy (IVPB) 750 MG in sodium chloride 0.9% (100 ml) 100 ML 460 MG IV (15:52)
== END 2021-03-13 06:56 | disposition home or self-care (01) ==
LOC: ONCMED 07:06
PROVIDERS: PCP Family Medicine; Visit Provider Internal Medicine Medical Oncology
DX: D50.9 Iron deficiency anemia, unspecified (principal)
CPT/HCPCS: 96365; 96367; 96375; J1100; J1200; J1439; J2060; J7050

== ENCOUNTER 2021-05-04 13:47 | Outpatient (CLI) | payer MEDICARE, OTHER, SELFPAY ==
[2021-05-04 14:37] LABS: Basophils % 0.4 %; Eosinophils # 0.1 10^3/uL (0.0-0.8); Eosinophils % 2.3 %; Hematocrit 39.6 % (37.0-47.0); Hemoglobin 12.8 g/dL (11.5-15.3); Lymphocytes # 1.1 10^3/uL (0.8-4.8); Lymphocytes % 22.2 %; Mean Corpuscular HGB Conc 32.3 g/dL (30.0-36.0); Mean Corpuscular Hemoglobin 29.8 pg (28.0-34.0); Mean Corpuscular Volume 92.1 fl (81-99); Mean Platelet Volume 9.3 fL (7.4-10.4); Monocytes # 0.5 10^3/uL (0.2-0.9); Monocytes % 10.8 %; Neutrophils # 3.08 10^3/uL (1.8-7.7); Neutrophils % 64.1 %; Nucleated Red Blood Cells % 0 %; Platelet Count 241 10^3/cmm (130-400); Red Cell Distribution Width 14.8 % (12.1-15.1); White Blood Count 4.8 10^3/uL (4.0-10.0)
[2021-05-04 14:59] LABS: Alanine Aminotransferase 12 U/L (0-33); Albumin Level 3.9 g/dL (3.5-5.2); Alkaline Phosphatase 88 IU/L (35-105); Anion Gap 17.9 (5-19); Aspartate Amino Transferase 16 U/L (0-32); Blood Urea Nitrogen 12 mg/dL (8-23); Calcium 8.3 mg/dL (8.5-10.5); Carbon Dioxide 22 mmol/L (22-29); Chloride 101 mmol/L (98-107); Globulin 2.6 g/dL (1.3-4.6); Glucose 78 mg/dL (65-115); Osmolality Calculated 283 mOsm/kg (285-295); Potassium 3.9 mmol/L (3.5-5.1); Sodium 137 mmol/L (136-145); Total Bilirubin 0.2 mg/dL (0.15-1.2); Total Protein 6.5 g/dL (6.6-8.7)
[2021-05-04 15:17] LABS: Ferritin 177 ng/mL (15-150); Iron 42 ug/dL (37-145); Percent Saturation 14.8 % (20-50); Total Iron Binding Capacity 282 mcg/dl; Unsaturated Iron Binding 240 ug/dL (112-347)
--- NOTE | 2021-05-07 15:05 | ONC FU_ITS ---
Dr. Gavin Patient Follow-Up Note Patient: Leticia North Unit #: [id number]: 1945 Dicatated By: Naresh Gavin M.D.Date of Visit:May 04, 2021 Onc Med Follow-up/Prog Note Chief Complaint: Anemia. History of Present Illness: This is a 75 year-old woman with iron deficiency anemia. She has had recurrent episodes of iron deficiency anemia, presumed to be due to inadequate oral iron absorption, as multiple GI studies had failed to document any GI blood loss. Her anemia has been managed with parenteral iron replacement, as in the past she had not responded to oral iron supplements. She had typically required parenteral iron about every 6 months. On one occasion her anemia was severe enough that she did require transfusion. I had seen her initially on 06/11/2018. Her laboratory studies one week earlier had shown mild anemia with hemoglobin 11.3 g and hematocrit 35.5%. The red cell indices were borderline low. The white blood cell count was 4900 and the platelet count was 300,000. The serum iron was low at 41 mcg/dL with transferrin saturation 9.6% and the ferritin was low at 6.0 ng/mL, consistent with iron deficiency. At that time she reported that with her most recent prior Injectafer and fusion she had developed significant anxiety. After discussion with her, she opted to proceed with 2 infusions of Injectafer, but with premedication which included dexamethasone, Benadryl, and lorazepam. She tolerated the infusions well. Her repeat laboratory studies in September 2018 showed normal hemoglobin at 13.0 g. However, her transferrin saturation was low at 8.9% and the ferritin was also low at 17.0 ng/mL, consistent with iron deficiency, and I did opt to give her further parenteral iron replacement with 2 additional infusions of Injectafer. At her follow-up visit in December 2018 her hemoglobin had increased to 13.1 g with transferrin saturation 21%. She was feeling significantly better. However, at her follow-up visit on 08/20/2019 she was significantly more fatigued. Her hemoglobin was back down to 11.9 g with transferrin saturation low at 16%. In addition, her methylmalonic acid level was elevated at 892 mmol/L. She was given a single infusion of Injectafer. She also started B12 replacement. I had seen her for a follow-up visit on 10/28/2019. She continued to complain of having poor energy. As she was still mildly anemic with low transferrin saturation, she was given further parenteral iron replacement with 2 infusions of Injectafer. During follow-up she remained mildly anemic. Her repeat serum iron studies on 02/15/2020 showed low transferrin saturation at 12.6% and the ferritin also had decreased to 27 ng/mL, consistent with iron deficiency. She was given 2 additional infusions of Injectafer. A repeat CBC on 02/13/2020 still showed hemoglobin low at 9.0 g but with normal transferrin saturation at 21% and with ferritin increased to 451 ng/mL. With evidence of persistent iron deficiency anemia, she was given additional parenteral iron replacement with 2 infusions of Injectafer in February 2020 and again in April 2020. At her follow-up visit on 05/23/2020 her hemoglobin was back up to 12.3 g. During subsequent follow-up, her hemoglobin/hematocrit levels remained borderline low to slightly decreased, and her transferrin saturation also remained low. She had additional infusions of Injectafer on 06/24/2020 and on 10/26/2020. Her medical illnesses, in addition to anemia and anxiety, include hypertension, degenerative arthritis, and glaucoma. She also has a history of thyroid nodule. She is a nonsmoker. INTERIM HISTORY: On 01/15/2021 she was admitted to the hospital with atrial fibrillation/RVR. She was discharged home on losartan 100 mg daily, HCTZ 25 mg daily, atorvastatin 40 mg daily, and apixaban 5 mg twice daily. She also continued aspirin at 162 mg daily. Her metoprolol dosage was decreased to 12.5 mg daily. She had cardiology follow-up on 01/24/2021, and the losartan dosage was reduced to 50 mg daily. As of her follow-up visit on 03/01/2021 she was mildly anemic again with hemoglobin 10.5 g. The transferrin saturation was low at 6.8% and the ferritin was low at 15 ng/mL, consistent with iron deficiency. She was given additional parenteral iron replacement with 2 infusions of Injectafer. She is seen for a follow-up visit. She has been feeling better, particularly during the past couple of weeks. She is doing light work. ECOG score is 1. She has good appetite. She has no fever or night sweats. She has not had sore mouth or throat. She does not complain of cough. She does have some shortness of breath, but her breathing is pretty good. She has not been having chest pain. She has no GI or complaints. She currently is not having any significant joint or bone pain. She does not complain of headache or dizziness, and she has no focal neurologic symptoms. Medications: Cyanocobalamin 1 (1000 mcg/mL) Injection q 1 week, hydroCHLOROthiazide 1 Tablet (of 25 mg) Oral daily, LORazepam 1 Tablet (of 0.5 mg) Oral daily PRN, Losartan Potassium 1 Tablet (of 50 mg) Oral daily Allergies: iron Vital Signs: Performed on May 04, 2021 15:59 Height - 67.00 in Weight - 223.8 lbs (HIGH) BSA - 2.12 sq.m BMI - 35.05 (HIGH) Temperature - 98.2 F (LOW) Pulse - 64 /min Respiration - 16 /min BP - 169/102 mm(hg) (HIGH) O2 Sat - 99 % Pain - 0 Fatigue - 7 Physical Examination: Constitutional - She looks pretty good generally, Eyes - Sclerae nonicteric. Conjunctivae clear, ENMT - No lesions noted in the oral cavity, Hematologic/Lymphatic - No cervical, clavicular, or axillary adenopathy, Respiratory - Lungs are clear with good air movement bilaterally, Cardiovascular - Heart rhythm is regular. There is no murmur, gallop, or rub noted, Abdomen - Soft. Liver and spleen are not enlarged. There is no abdominal mass or ascites noted and there is no inguinal adenopathy, Extremities - No edema, Neurologic - No focal neurologic deficits noted. Lab/Imaging: Test performed on May 04, 2021 14:30 Ferritin 177 ng/mL Iron 42 mcg/dL Sodium 137 mmol/L Iron Binding Capacity (TIBC) 282 mcg/dl Potassium 3.9 mmol/L % Iron Saturation 14.8 % Chloride 101 mmol/L CO2 22 mmol/L UIBC 240 mcg/dL Anion Gap 17.9 BUN 12 mg/dL Creatinine 1.1 mg/dL Cr Clearance (Est) 70.82 mL/min Glucose 78 mg/dL Osmolality - Calculated 283 mOsm/kg Calcium 8.3 mg/dL Protein, Total 6.5 g/dL Albumin 3.9 g/dL Globulin 2.6 g/dL Bilirubin, Total 0.2 mg/dL ALT (SGPT) 12 U/L AST (SGOT) 16 U/L Alkaline Phosphatase 88 IU/L WBC 4.8 10 3/uL RBC 4.30 10 6/uL HGB 12.8 g/dL HCT 39.6 % MCV 92.1 fl MCH 29.8 pg MCHC 32.3 g/dL RDW 14.8 % Platelet Count 241 10 3/cmm MPV 9.3 fL Neutrophils 3.08 10 3/uL Lymphocytes 1.1 10 3/uL Monocytes 0.5 10 3/uL Eosinophils 0.1 10 3/uL Basophils 0.0 10 3/uL Neutrophil % 64.1 % Lymphocyte % 22.2 % Monocyte % 10.8 % Eosinophil % 2.3 % Basophils % 0.4 % NRBC % 0 % Problem List: 1. Recurrent iron deficiency anemia, presumed to be due to inadequate oral iron absorption. She has been managed with parenteral iron replacement, as her anemia had been refractory to oral iron supplements. 2. She also was found to have B12 deficiency, for which she has been on replacement therapy. 3. Hypertension. 4. Degenerative arthritis. 5. Glaucoma. 6. She has a history of thyroid nodule. 7. She has chronic anxiety. Problems Addressed with this Encounter and Plan: 1. Patient with recurrent episodes of iron deficiency anemia. These have not been responsive to oral iron supplementation. She had continued to have mild anemia despite multiple infusions of Injectafer. Her stool FIT was repeated and was negative. During follow-up she continued to have borderline low hemoglobin/hematocrit levels and low transferrin saturation, and she was given additional infusions of Injectafer on 06/24/2020 and on 10/26/2020. She has had some difficulty tolerating the iron infusions, particularly if they are administered too rapidly. As of her follow-up visit in February 2021 she was mildly anemic again with transferrin saturation and ferritin consistent with iron deficiency. She was given additional parenteral iron replacement with 2 infusions of Injectafer. She has had a good clinical response. I will continue to monitor her blood counts monthly, and she can be given parenteral iron again as indicated. I will tentatively plan a follow-up visit in 3 months. 2. She also was found to have B12 deficiency, and she has continued her monthly B12 injections. Signed By: Naresh Gavin M.D. <<Signature on File>>
== END 2021-05-04 13:48 | disposition home or self-care (01) ==
LOC: ONCMED 13:50
PROVIDERS: PCP Family Medicine; Visit Provider Internal Medicine Medical Oncology
DX: D50.9 Iron deficiency anemia, unspecified (principal); E53.8 Deficiency of other specified B group vitamins; F41.9 Anxiety disorder, unspecified; I10 Essential (primary) hypertension; H40.9 Unspecified glaucoma; Z79.899 Other long term (current) drug therapy
CPT/HCPCS: 36415; 80053; 82728; 83540; 83550; 85025; 99214

== ENCOUNTER 2021-07-20 14:18 | Outpatient (CLI) | payer MEDICARE, OTHER, SELFPAY ==
[2021-07-20 15:54] LABS: Basophils % 0.3 %; Eosinophils # 0.1 10^3/uL (0.0-0.8); Eosinophils % 0.8 %; Hematocrit 42.9 % (37.0-47.0); Hemoglobin 13.9 g/dL (11.5-15.3); Lymphocytes # 1.1 10^3/uL (0.8-4.8); Lymphocytes % 18.4 %; Mean Corpuscular HGB Conc 32.4 g/dL (30.0-36.0); Mean Corpuscular Hemoglobin 30.5 pg (28.0-34.0); Mean Corpuscular Volume 94.3 fl (81-99); Mean Platelet Volume 9.9 fL (7.4-10.4); Monocytes # 0.6 10^3/uL (0.2-0.9); Monocytes % 9.2 %; Neutrophils # 4.23 10^3/uL (1.8-7.7); Neutrophils % 70.8 %; Nucleated Red Blood Cells % 0 %; Platelet Count 261 10^3/cmm (130-400); Red Blood Count 4.55 10^6/uL (4.1-5.3)
[2021-07-20 16:21] LABS: Alanine Aminotransferase 11 U/L (0-33); Albumin Level 4.2 g/dL (3.5-5.2); Alkaline Phosphatase 105 IU/L (35-105); Anion Gap 19.7 (5-19); Aspartate Amino Transferase 15 U/L (0-32); Blood Urea Nitrogen 17 mg/dL (8-23); Calcium 9.4 mg/dL (8.5-10.5); Carbon Dioxide 22 mmol/L (22-29); Chloride 99 mmol/L (98-107); Ferritin 54 ng/mL (15-150); Globulin 3.6 g/dL (1.3-4.6); Glucose 104 mg/dL (65-115); Iron 46 ug/dL (37-145); Osmolality Calculated 286 mOsm/kg (285-295); Percent Saturation 12.3 % (20-50); Potassium 3.7 mmol/L (3.5-5.1); Sodium 137 mmol/L (136-145); Total Bilirubin 0.4 mg/dL (0.15-1.2); Total Iron Binding Capacity 371 mcg/dl; Total Protein 7.8 g/dL (6.6-8.7); Unsaturated Iron Binding 325 ug/dL (112-347)
== END 2021-07-20 14:19 | disposition home or self-care (01) ==
LOC: ONCMED 14:22
PROVIDERS: PCP Family Medicine; Visit Provider Internal Medicine Medical Oncology
DX: D50.9 Iron deficiency anemia, unspecified (principal); I10 Essential (primary) hypertension; I48.91 Unspecified atrial fibrillation; Z79.899 Other long term (current) drug therapy
CPT/HCPCS: 36415; 80053; 82728; 83540; 83550; 85025

== ENCOUNTER 2021-10-13 10:00 | Oncology outpatient (recurring) (ONCR) | payer MEDICARE, OTHER, SELFPAY ==
[2021-10-13] MEDS: ferric carboxy (IVPB) 750 MG in sodium chloride 0.9% (100 ml) 100 ML 345 MG IV (10:07)
[2021-10-13] MEDS: cyanocobalamin 1,000 mcg/mL SDV 1000 MCG IM (10:07)
[2021-10-13] MEDS: sodium chloride 0.9% 250 ML 75 ML IV (10:07)
[2021-10-13 10:49] VITALS: BP 177/88; PULSE 52; TEMP 36.9; O2SAT 97
== END 2021-10-17 23:59 | disposition home or self-care (01) ==
PROVIDERS: PCP Family Medicine; Visit Provider Internal Medicine Medical Oncology
DX: D50.9 Iron deficiency anemia, unspecified (principal); D51.9 Vitamin B12 deficiency anemia, unspecified; Z79.899 Other long term (current) drug therapy
CPT/HCPCS: 80053; 82728; 83540; 83550; 85025; 96365; 96372; 99214; 99999; J1439; J3420; J7050

== ENCOUNTER 2021-10-20 09:36 | Oncology outpatient (recurring) (ONCR) | payer MEDICARE, OTHER, SELFPAY ==
[2021-10-20] MEDS: sodium chloride 0.9% 250 ML 75 ML IV (10:10)
[2021-10-20] MEDS: ferric carboxy (IVPB) 750 MG in sodium chloride 0.9% (100 ml) 100 ML 345 MG IV (10:30)
[2021-10-20 11:10] VITALS: BP 157/93; PULSE 55; RESP 18; TEMP 36.9; O2SAT 98
== END 2021-11-16 23:59 | disposition home or self-care (01) ==
PROVIDERS: PCP Family Medicine; Visit Provider Internal Medicine Medical Oncology
DX: Z79.899 Other long term (current) drug therapy (principal); D50.9 Iron deficiency anemia, unspecified
CPT/HCPCS: 96365; J1439; J7050

== ENCOUNTER 2021-12-07 07:57 | Oncology outpatient (recurring) (ONCR) | payer MEDICARE, OTHER, SELFPAY | END 2021-12-17 23:59 | disposition home or self-care (01) | PROVIDERS: PCP Internal Medicine; Visit Provider Internal Medicine Medical Oncology | DX: C50.812 Malignant neoplasm of overlapping sites of left female breast (principal); Z17.0 Estrogen receptor positive status [ER+]; D50.9 Iron deficiency anemia, unspecified; E53.9 Vitamin B deficiency, unspecified; Z79.818 Long term (current) use of other agents affecting estrogen receptors and estrogen levels; Z79.899 Other long term (current) drug therapy | CPT/HCPCS: 82728; 83540; 83550; 85025; 99214; 99215 ==

== ENCOUNTER 2022-01-05 10:33 | Oncology outpatient (recurring) (ONCR) | payer MEDICARE, OTHER, SELFPAY | END 2022-01-17 23:59 | disposition home or self-care (01) | PROVIDERS: PCP Internal Medicine; Visit Provider Internal Medicine Medical Oncology | DX: C50.812 Malignant neoplasm of overlapping sites of left female breast (principal); Z17.0 Estrogen receptor positive status [ER+]; D50.9 Iron deficiency anemia, unspecified; E53.9 Vitamin B deficiency, unspecified; Z79.818 Long term (current) use of other agents affecting estrogen receptors and estrogen levels; Z79.899 Other long term (current) drug therapy | CPT/HCPCS: 99214 ==

== ENCOUNTER 2022-02-23 10:24 | Oncology outpatient (recurring) (ONCR) | payer MEDICARE, OTHER, SELFPAY ==
[2022-02-23 10:45] LABS: Basophils % 0.2 %; Eosinophils # 0.1 10^3/uL (0.0-0.8); Eosinophils % 1.7 %; Hematocrit 40.3 % (37.0-47.0); Lymphocytes # 0.9 10^3/uL (0.8-4.8); Lymphocytes % 18.7 %; Mean Corpuscular HGB Conc 32.3 g/dL (30.0-36.0); Mean Corpuscular Hemoglobin 31.4 pg (28.0-34.0); Mean Corpuscular Volume 97.3 fl (81-99); Mean Platelet Volume 10.2 fL (7.4-10.4); Monocytes # 0.6 10^3/uL (0.2-0.9); Neutrophils # 3.13 10^3/uL (1.8-7.7); Neutrophils % 67.2 %; Nucleated Red Blood Cells % 0 %; Platelet Count 200 10^3/cmm (130-400); Red Blood Count 4.14 10^6/uL (4.1-5.3); Red Cell Distribution Width 13.1 % (12.1-15.1); White Blood Count 4.7 10^3/uL (4.0-10.0)
[2022-02-23 11:07] LABS: Ferritin 150 ng/mL (15-150); Iron 73 ug/dL (37-145); Total Iron Binding Capacity 280 mcg/dl; Unsaturated Iron Binding 207 ug/dL (112-347)
== END 2022-03-19 23:59 | disposition home or self-care (01) ==
PROVIDERS: PCP Internal Medicine; Visit Provider Internal Medicine Medical Oncology
DX: D50.9 Iron deficiency anemia, unspecified (principal)
CPT/HCPCS: 36415; 82728; 83540; 83550; 85025

== ENCOUNTER 2022-05-03 12:15 | Oncology outpatient (recurring) (ONCR) | payer MEDICARE, OTHER, SELFPAY ==
[2022-05-03 13:27] LABS: Basophils % 0.4 %; Eosinophils # 0.1 10^3/uL (0.0-0.8); Eosinophils % 1.1 %; Hematocrit 42.9 % (37.0-47.0); Hemoglobin 13.4 g/dL (11.5-15.3); Lymphocytes # 0.7 10^3/uL (0.8-4.8); Lymphocytes % 13.3 %; Mean Corpuscular HGB Conc 31.2 g/dL (30.0-36.0); Mean Corpuscular Hemoglobin 30.1 pg (28.0-34.0); Mean Corpuscular Volume 96.4 fl (81-99); Mean Platelet Volume 10.2 fL (7.4-10.4); Monocytes # 0.6 10^3/uL (0.2-0.9); Monocytes % 10.4 %; Neutrophils # 3.99 10^3/uL (1.8-7.7); Neutrophils % 73.7 %; Nucleated Red Blood Cells % 0 %; Platelet Count 226 10^3/cmm (130-400); Red Blood Count 4.45 10^6/uL (4.1-5.3); Red Cell Distribution Width 13.2 % (12.1-15.1); White Blood Count 5.4 10^3/uL (4.0-10.0)
[2022-05-03 13:56] LABS: Alanine Aminotransferase 12 U/L (0-33); Albumin Level 3.3 g/dL (3.5-5.2); Alkaline Phosphatase 98 U/L (35-105); Anion Gap 12.8 (5-19); Aspartate Amino Transferase 15 U/L (0-32); Blood Urea Nitrogen 21 mg/dL (8-23); Calcium 8.6 mg/dL (8.5-10.5); Carbon Dioxide 26 mmol/L (22-29); Chloride 105 mmol/L (98-107); Ferritin 136 ng/mL (15-150); Globulin 3.7 g/dL (1.3-4.6); Glucose 92 mg/dL (65-115); Iron 44 ug/dL (37-145); Osmolality Calculated 293 mOsm/kg (285-295); Percent Saturation 16.9 % (20-50); Potassium 3.8 mmol/L (3.5-5.1); Sodium 140 mmol/L (136-145); Total Bilirubin 0.3 mg/dL (0.15-1.2); Total Iron Binding Capacity 259 mcg/dl; Unsaturated Iron Binding 215 ug/dL (112-347)
== END 2022-05-19 23:59 | disposition home or self-care (01) ==
LOC: ONCMED 12:16
PROVIDERS: PCP Internal Medicine; Visit Provider Internal Medicine Medical Oncology
DX: D50.9 Iron deficiency anemia, unspecified (principal); R53.83 Other fatigue; C50.212 Malignant neoplasm of upper-inner quadrant of left female breast; Z79.811 Long term (current) use of aromatase inhibitors; Z17.0 Estrogen receptor positive status [ER+]
CPT/HCPCS: 36415; 80053; 82728; 83540; 83550; 84443; 85025; 99214

== ENCOUNTER → 2022-05-24 11:01 | Outpatient (BNVA) | payer MEDICARE, OTHER, SELFPAY | PROVIDERS: PCP Internal Medicine; Visit Provider Internal Medicine Cardiovascular Disease | DX: I48.91 Unspecified atrial fibrillation (principal); Z79.01 Long term (current) use of anticoagulants; I35.1 Nonrheumatic aortic (valve) insufficiency; I10 Essential (primary) hypertension; E78.5 Hyperlipidemia, unspecified | CPT/HCPCS: 93005; 99214 ==

== ENCOUNTER 2022-08-06 12:49 | Oncology outpatient (recurring) (ONCR) | payer MEDICARE, OTHER, SELFPAY ==
[2022-08-06 13:48] LABS: Basophils % 0.6 %; Eosinophils # 0.1 10^3/uL (0.0-0.8); Eosinophils % 1.5 %; Hematocrit 42.8 % (37.0-47.0); Hemoglobin 13.5 g/dL (11.5-15.3); Lymphocytes # 0.7 10^3/uL (0.8-4.8); Lymphocytes % 15.5 %; Mean Corpuscular HGB Conc 31.5 g/dL (30.0-36.0); Mean Corpuscular Hemoglobin 29.2 pg (28.0-34.0); Mean Corpuscular Volume 92.6 fl (81-99); Mean Platelet Volume 9.8 fL (7.4-10.4); Monocytes # 0.5 10^3/uL (0.2-0.9); Monocytes % 10.3 %; Neutrophils # 3.34 10^3/uL (1.8-7.7); Neutrophils % 71.9 %; Nucleated Red Blood Cells % 0 %; Platelet Count 209 10^3/cmm (130-400); Red Blood Count 4.62 10^6/uL (4.1-5.3); Red Cell Distribution Width 13.5 % (12.1-15.1); White Blood Count 4.7 10^3/uL (4.0-10.0)
[2022-08-06 14:28] LABS: Alanine Aminotransferase 15 U/L (0-33); Albumin Level 3.7 g/dL (3.5-5.2); Alkaline Phosphatase 93 U/L (35-105); Anion Gap 13.2 (5-19); Aspartate Amino Transferase 16 U/L (0-32); Blood Urea Nitrogen 30 mg/dL (8-23); Calcium 8.3 mg/dL (8.5-10.5); Carbon Dioxide 27 mmol/L (22-29); Chloride 106 mmol/L (98-107); Ferritin 96 ng/mL (15-150); Globulin 3.2 g/dL (1.3-4.6); Glucose 102 mg/dL (65-115); Iron 43 ug/dL (37-145); Osmolality Calculated 300 mOsm/kg (285-295); Percent Saturation 14.9 % (20-50); Potassium 4.2 mmol/L (3.5-5.1); Sodium 142 mmol/L (136-145); Total Bilirubin 0.4 mg/dL (0.15-1.2); Total Iron Binding Capacity 288 mcg/dl; Total Protein 6.9 g/dL (6.6-8.7); Unsaturated Iron Binding 245 ug/dL (112-347)
[2022-08-06 14:39] LABS: Vitamin B12 1457 pg/mL (232-1245)
== END 2022-08-17 23:59 | disposition home or self-care (01) ==
PROVIDERS: PCP Internal Medicine; Visit Provider Internal Medicine Medical Oncology
DX: C50.212 Malignant neoplasm of upper-inner quadrant of left female breast (principal); Z17.0 Estrogen receptor positive status [ER+]; Z79.818 Long term (current) use of other agents affecting estrogen receptors and estrogen levels; M85.89 Other specified disorders of bone density and structure, multiple sites; Z79.899 Other long term (current) drug therapy
CPT/HCPCS: 36415; 80053; 82607; 82728; 83540; 83550; 85025; 99214

== ENCOUNTER 2022-11-06 10:58 | Oncology outpatient (recurring) (ONCR) | payer MEDICARE, OTHER, SELFPAY ==
[2022-11-06 11:03] VITALS: BP 127/84; PULSE 121; RESP 18; TEMP 36.7; O2SAT 96
[2022-11-06 11:23] LABS: Basophils % 0.4 %; Eosinophils # 0.1 10^3/uL (0.0-0.8); Eosinophils % 1.8 %; Hematocrit 46.3 % (37.0-47.0); Hemoglobin 14.8 g/dL (11.5-15.3); Lymphocytes # 1.1 10^3/uL (0.8-4.8); Lymphocytes % 19.4 %; Mean Corpuscular Hemoglobin 29.4 pg (28.0-34.0); Mean Platelet Volume 9.4 fL (7.4-10.4); Monocytes # 0.6 10^3/uL (0.2-0.9); Monocytes % 11.3 %; Neutrophils # 3.54 10^3/uL (1.8-7.7); Neutrophils % 65.4 %; Nucleated Red Blood Cells % 0 %; Platelet Count 217 10^3/cmm (130-400); Red Blood Count 5.03 10^6/uL (4.1-5.3); Red Cell Distribution Width 13.4 % (12.1-15.1); White Blood Count 5.4 10^3/uL (4.0-10.0)
[2022-11-06 11:39] LABS: Alanine Aminotransferase 12 U/L (0-33); Alkaline Phosphatase 107 U/L (35-105); Anion Gap 14.6 (5-19); Aspartate Amino Transferase 17 U/L (0-32); Blood Urea Nitrogen 21 mg/dL (8-23); Calcium 8.8 mg/dL (8.5-10.5); Carbon Dioxide 24 mmol/L (22-29); Chloride 106 mmol/L (98-107); Ferritin 99 ng/mL (15-150); Globulin 3.5 g/dL (1.3-4.6); Glucose 84 mg/dL (65-115); Iron 88 ug/dL (37-145); Osmolality Calculated 292 mOsm/kg (285-295); Percent Saturation 28.4 % (20-50); Potassium 4.6 mmol/L (3.5-5.1); Sodium 140 mmol/L (136-145); Total Bilirubin 0.5 mg/dL (0.15-1.2); Total Iron Binding Capacity 309 mcg/dl; Total Protein 7.5 g/dL (6.6-8.7); Unsaturated Iron Binding 221 ug/dL (112-347)
== END 2022-11-16 23:59 | disposition home or self-care (01) ==
PROVIDERS: Nurse Practitioner; PCP Internal Medicine; Visit Provider Internal Medicine Medical Oncology
DX: C50.212 Malignant neoplasm of upper-inner quadrant of left female breast (principal); D50.9 Iron deficiency anemia, unspecified; R53.83 Other fatigue; Z79.811 Long term (current) use of aromatase inhibitors; Z17.0 Estrogen receptor positive status [ER+]
CPT/HCPCS: 36415; 80053; 82728; 83540; 83550; 85025; 99213; 99214

== ENCOUNTER 2025-03-15 12:45 | Oncology outpatient (recurring) (ONCR) | payer MEDICARE, OTHER, SELFPAY ==
[2025-03-15 13:44] LABS: Hematocrit 38.7 % (36-47); Hemoglobin 12.60 g/dL (11.27-16.99); Mean Corpuscular HGB Conc 32.6 g/dL (30-55); Mean Corpuscular Hemoglobin 29.0 pg (27-33); Mean Corpuscular Volume 89.0 fl (85-98); Nucleated Red Blood Cells % 0 %; Platelet Count 153 10^3/cmm (157-399); Red Blood Count 4.35 10^6/uL (3.85-5.65); White Blood Count 2.57 10^3/uL (3.29-11.43)
[2025-03-15 14:03] LABS: Alanine Aminotransferase 16 U/L (0-33); Albumin Level 3.7 g/dL (3.5-5.2); Alkaline Phosphatase 79 U/L (35-105); Anion Gap 10.9 (5-19); Aspartate Amino Transferase 22 U/L (0-32); Blood Urea Nitrogen 12 mg/dL (8-23); Calcium 8.7 mg/dL (8.5-10.5); Carbon Dioxide 27 mmol/L (22-29); Chloride 98 mmol/L (98-107); Creatinine Clr Calc Pharmacy 44.8620; Ferritin 144 ng/mL (15-150); Globulin 3.6 g/dL (1.3-4.6); Glucose 95 mg/dL (65-115); Iron 60 ug/dL (37-145); Osmolality Calculated 274 mOsm/kg (285-295); Potassium 3.9 mmol/L (3.5-5.1); Sodium 132 mmol/L (136-145); Total Iron Binding Capacity 291 mcg/dl; Total Protein 7.3 g/dL (6.6-8.7); Unsaturated Iron Binding 231 ug/dL (112-347)
[2025-03-15 14:41] LABS: Vitamin B12 > 2000 pg/mL (232-1245)
== END 2025-03-19 23:59 | disposition home or self-care (01) ==
PROVIDERS: PCP Internal Medicine; Visit Provider Internal Medicine Medical Oncology
DX: C50.212 Malignant neoplasm of upper-inner quadrant of left female breast (principal); Z17.0 Estrogen receptor positive status [ER+]; D50.8 Other iron deficiency anemias; D70.9 Neutropenia, unspecified; I48.91 Unspecified atrial fibrillation
CPT/HCPCS: 36415; 80053; 82607; 82728; 82746; 83540; 83550; 85025; 99215